=== PATIENT | female | born 1975 | race African-American/Black ===

== ENCOUNTER 2017-06-19 10:24 | Inpatient (IN) ==
--- NOTE | 2017-06-19 11:05 | Emergency Department Note ---
Arrival - Arrival Chief Complaint: Upper Respiratory Stated Complaint: SOB, SHARP PAIN IN RIGHT SIDE, HURTS TO COUGH ED Nursing Triage Note: Pt c/o productive cough that is painful in her left chest and also painful to take a deep breath, right flank/hip/leg pain (aching pain), fever, sore throat, nasal congestion, body aches, and chills since yesterday. Mode of Arrival: Ambulatory Limitations: No Limitations Source: Patient Time Seen by Provider: 06/19/17 10:41 - History of Present Illness HPI Narrative: This is a 41-year-old black female who is complaining of a productive cough with fever that began yesterday. She states that her fever has been 100.2 at home. She states that is also painful to take a deep breath and she aches all over. Onset (ago): day(s) (1) Severity: moderate Quality: aching Date of Last Menstrual Period: June 02 Allergies/Adverse Reactions: Allergies Allergy/AdvReac Type Severity Reaction Status Date / Time No Known Allergies Allergy Verified 06/14/16 21:37 Home Medications: Home Medications Medication Instructions Recorded Confirmed Type Lisinopril/Hydrochlorothiazide 1 each PO DAILY 08/21/15 11/04/16 History [Lisinopril-Hctz 20-12.5 mg Tab] Albuterol Neb [Proventil Neb] 0.63 mg RESP TX RT Q4H PRN #120 06/19/16 11/04/16 Rx nebulization solution Metformin HCl 1,000 mg PO BID W/MEALS #60 tablet 06/19/16 11/04/16 Rx Nebulizer [Aeroneb Go Nebulizer] 1 each INH Q4H 08/06/16 11/04/16 History predniSONE TAB [PredniSONE] 40 mg PO DAILY 3 Days 08/06/16 11/04/16 Rx HYDROcodone/ACETAMIN 7.5-325 1 tablet PO Q6H #20 tablet 11/08/16 Rx [[place] 7.5-325] Levofloxacin Tab [Levaquin Tab] 500 mg PO DAILY #4 tablet 11/08/16 Rx Review of System - Review of System 12 point system: reviewed and no additional remarkable complaints except as stated - Review of System Constitutional: Present: as per HPI, chills, fever Head/Ears/Nose/Throat: Present: see HPI, sore throat Respiratory: Present: as per HPI, cough Gastrointestinal: Present: as per HPI, abdominal pain. Absent: nausea, vomiting , diarrhea Medical,Surgical,& Family Hx - Medical History Cardio: History of: Hypertension HEENT: History of: HEENT Problems (recurrent sinus infections) Endocrine: History of: Diabetes Mellitus (NIDDM), Dyslipidemia No history of: Diabetes Mellitus (IDDM) Respiratory: History of: Asthma (she has home nebulizer with albuterol), Bronchitis, Pneumonia Renal: No history of: Renal Failure, Renal Problems Gastrointestinal: No history of: Gastrointestinal Bleed, Liver Problems, GI Problems Musculoskeletal: No history of: Amputation - Surgical History Reproductive Surgeries: Surgical HX of;: Gynecologic Surgery (removal of ovarian cyst 1993) - Family History Family History: Reports;: Family Diabetes (grandmother), Family Hypertension ( mother, father, grandparents) Denies;: Family Anesthesia Reaction, Family Cancer, Family Heart Disease, Family Psychiatric Problems, Family Stroke - Social History Smoking Status: Never smoker Exam Physical Examination: - General General appearance: [alert, in mild to moderate distress] - Head Head exam: [Present: atraumatic, normocephalic, normal inspection] - Eye Eye exam: [Present: normal appearance, PERRL, EOMI] - ENT ENT exam: [Present: normal exam, normal oropharynx, mucous membranes moist, TM' s normal bilaterally, normal external ear exam] - Neck Neck exam: [Present: normal inspection, full ROM, trachea midline] - Chest Chest inspection: [Present: normal inspection, symmetric chest wall rise] - Respiratory Respiratory exam: [Present: normal lung sounds bilaterally] - Cardiovascular Cardiovascular exam: [Present: Mild tachycardia at 107, normal rhythm, normal heart sounds] - Abdominal Exam Abdominal exam: [Present: soft, normal bowel sounds] - Extremities Exam Extremities exam: [Present: normal inspection, full ROM] - Back Exam Back exam: [Present: normal inspection, full ROM] - Neurological Exam Neurological exam: [Present: alert, oriented X3] - Psychiatric Psychiatric exam: [Present: normal affect, normal mood] - Skin Skin exam: [Present: warm, dry, intact, normal color] Vital Signs: Vital Signs Temperature 99.6 F 06/19/17 10:38 Pulse Rate 107 H 06/19/17 10:38 Respiratory Rate 20 06/19/17 10:38 Blood Pressure 125/87 06/19/17 10:38 O2 Sat by Pulse Oximetry 98 06/19/17 10:31 Course - Consultations Consultation #1: I spoke with Krista and hospitalist services about the patient, and she will come down and see the patient in nonurgent. Time: 12:15 Results - Labs CBC & BMP: 06/19/17 10:57 06/19/17 10:57 Lab Results: I have reviewed the patients labs - Diagnostic Findings Procedure: Chest x-ray: image reviewed by me, report reviewed by me (Left lung pneumonia infiltrate) Disposition Clinical Impression: Pneumonia Case discussed with: patient Disposition: Still a Patient Condition: Stable Time of Disposition: 12:51
[2017-06-19 11:15] LABS: Basophils # 0.1 10*3/uL (0.0-0.2); Basophils % 0.3 % (0.0-0.8); Hematocrit 35.9 VOL% (35.7-47.0); Hemoglobin 12.5 GM/DL (12.0-16.0); Immature Granulocytes % 1.1 %; Immature Granulocytes Absolute 0.35 #; Lymphocytes # 1.8 10*3/uL (1.4-4.0); Lymphocytes % 5.9 % (21.3-54.2); Mean Corpuscular HGB Conc 34.8 GM/DL (32-36); Mean Corpuscular Hemoglobin 27 PG (27-34); Mean Corpuscular Volume 78.7 FL (87-102); Monocytes # 1.2 10*3/uL (0.11-0.8); Monocytes % 3.8 % (1.7-12.7); Neutrophils # 27.7 10*3/uL (1.4-7.4); Neutrophils % 88.9 % (38.7-73.9); Platelet Count 323 T/CUMM (130-400); Red Blood Count 4.56 MC/CUMM (3.8-5.5); Red Cell Distribution Width 14.3 % (9.3-17.3); White Blood Count 31.2 T/CUMM (4-12)
[2017-06-19 11:27] LABS: Apearance,Urine Slightly Hazy (Clear); Bacteria,Urine Occasional /HPF (Few); Bilirubin,Urine Negative (Negative); Blood, Urine Small mg/dL (Negative); Glucose,Urine (UA) Negative (Negative); Hyaline Casts,Urine 1 /LPF (0-3); Ketones,Urine 5 mg/dL (Negative); Mucus,Urine Occasional /LPF (Occasional); Nitrite,Urine Negative (Negative); Protein,Urine 30 MG/DL; RBC,Urine 1 /HPF (0-4); Squamous Epithelial Cell,Urine Occasional /HPF (0-10); Urine Color Yellow (Yellow); Urine Specific Gravity 1.015 (1.001-1.035); Urine Urobilinogen < 2.0 EU/DL (0.2-1.0); WBC,Urine 4 /HPF (0-6)
--- NOTE | 2017-06-19 11:29 | XRay Report ---
History: Productive cough and fever Date: 06/19/2017 Study: Chest x-ray PA and lateral Comparison exam: November 08, 2016 The cardiac silhouette is not enlarged. There is no mediastinal mass. There is some dense parenchymal consolidation in the left lower lobe in the retrocardiac region. There is also some focal almost masslike patchy infiltrate measuring 5.6 cm in the left midlung. There is no significant pleural effusion. Osseous structures are unchanged. Impression: Left lung pneumonia. Radiographic follow-up to resolution is recommended in order to help exclude underlying neoplasm PROCEDURE INTERPRETED AT [facility] DEPARTMENT OF RADIOLOGY Final Report Signed by: Dr. Bridgette Mackay
[2017-06-19] MEDS ORDERED: LEVOFLOXACIN INJ 750 MG in PREMIX 1 EACH IV STA (11:33)
[2017-06-19] MEDS ORDERED: SODIUM CHLORIDE 0.9% 1,000 ML IV STA (11:33)
[2017-06-19 11:45] LABS: Band Neutrophils 9 % (0-10); Calcium 9.4 MG/DL (8.5-10.1); Hypochromasia 1+; Lymphocytes 4 % (20-55); Metamyelocytes 1 %; Microcytosis 1+; Osmolality,Calculated 268.1 MOS/KG (273-304); Potassium 3.1 MMOL/L (3.5-5.1); Segmented Neutrophils 80 % (50-85); Total Cells Counted 100
[2017-06-19] MEDS ORDERED: LEVOFLOXACIN INJ 150 ML IV ONE (11:47)
[2017-06-19] MEDS ORDERED: DOCUSATE SODIUM 100 MG CAPSULE PO PRN (12:27)
--- NOTE | 2017-06-19 12:50 | Hospitalist History & Physical ---
Assessment and Plan - Time spent with patient Time spent with patient: Greater than 30 minutes (1) Pneumonia Status: Acute Assessment and plan: 06/19/17 Chest xray showed left pneumonia. Discussed with Dr Squires for further recommendations. will admit. Start antibiotic therapy. Will order CT of chest. Order labs (Bandar. TB gold, Myco IgM and IgG, and HIV). Repeat labs in A.M. Consult Pulmonary for pleurisy vs TB. Current Visit: Yes (2) Type 2 diabetes mellitus Status: Chronic Assessment and plan: Will monitor closely. Will continue home medications. Will order sliding scale. Current Visit: No History of Present Illness Chief complaint: fever, cough, pneumonia History of present illness: Ms. Diallo is a very pleasant 41 year old AA female presented to [facility] ED non-urgent for c/o productive cough, fever (100.2) and chills. PMHx: hypertension, diabetes, and asthma. She reports right sided pain with deep inspiration, sore throat, nasal congestion, and body aches for the past 24 hours. She denies shortness of breath or chest pain. She denies coughing up blood. She reports taking all her medications as prescribed. While in non-urgent, Lab was noted for significant WBC of 31.2. CXR showed left lung pneumonia, radiographic follow-up to resolution is recommended in order to help exclude underlying neoplasm. PCP; [facility] (Dr Garcia). After further discussion with Perfecto STARK in non-urgent and Dr Squires with Hospitalist Services, it was agreed to admit patient and for further evaluation and treatment. Home Medications Medication Instructions Recorded Confirmed Type Lisinopril/Hydrochlorothiazide 1 each PO DAILY 08/21/15 11/04/16 History [Lisinopril-Hctz 20-12.5 mg Tab] Albuterol Neb [Proventil Neb] 0.63 mg RESP TX RT Q4H PRN #120 06/19/16 11/04/16 Rx nebulization solution Metformin HCl 1,000 mg PO BID W/MEALS #60 tablet 06/19/16 11/04/16 Rx Nebulizer [Aeroneb Go Nebulizer] 1 each INH Q4H 08/06/16 11/04/16 History predniSONE TAB [PredniSONE] 40 mg PO DAILY 3 Days 08/06/16 11/04/16 Rx HYDROcodone/ACETAMIN 7.5-325 1 tablet PO Q6H #20 tablet 11/08/16 Rx [[place] 7.5-325] Levofloxacin Tab [Levaquin Tab] 500 mg PO DAILY #4 tablet 11/08/16 Rx Allergies Allergy/AdvReac Type Severity Reaction Status Date / Time No Known Allergies Allergy Verified 06/14/16 21:37 Medical,Surgical,& Family Hx - Medical History Cardio: History of: Hypertension HEENT: History of: HEENT Problems (recurrent sinus infections) Endocrine: History of: Diabetes Mellitus (NIDDM), Dyslipidemia No history of: Diabetes Mellitus (IDDM) Respiratory: History of: Asthma (she has home nebulizer with albuterol), Bronchitis, Pneumonia Renal: No history of: Renal Failure, Renal Problems Gastrointestinal: No history of: Gastrointestinal Bleed, Liver Problems, GI Problems Musculoskeletal: No history of: Amputation - Surgical History Reproductive Surgeries: Surgical HX of;: Gynecologic Surgery (removal of ovarian cyst 1993) - Family History Family History: Reports;: Family Diabetes (grandmother), Family Hypertension ( mother, father, grandparents) Denies;: Family Anesthesia Reaction, Family Cancer, Family Heart Disease, Family Psychiatric Problems, Family Stroke - Social History Smoking Status: Never smoker Frequency of Alcohol Use: None Type of Drug Use: None Lives With:: Parent Functional capacity: independent ambulation Review of systems: ROS of completed and pertinent positives and negatives in HPI. Exam - Constitutional Vitals: Period Temp Pulse Resp BP Sys/Bethea Pulse Ox Last 24 Hr 99.6 F-99.6 F 107-107 20-20 125-125/87-87 98 General appearance: normal weight - Head Head exam: Present: normal inspection - Eye Eye exam: Present: EOMI Pupils: Present: DAX - Neck Neck exam: Present: normal inspection. Absent: thyromegaly - Respiratory Respiratory exam: Present: rhonchi (left lung). Absent: chest wall tenderness, wheezes - Cardiovascular Cardiovascular exam: Present: regular rate and rhythm - GI/Abdominal GI/Abdominal exam: Present: normal bowel sounds, soft. Absent: guarding, tenderness, rebound - Extremities Exam Extremities exam: Present: full ROM. Absent: edema - Neurological Exam Neurological exam: Present: alert, oriented X3, CN II-XII intact - Psychiatric Psychiatric exam: Present: normal affect, normal mood. Absent: agitated, anxious - Skin Skin exam: Present: normal color, warm, dry Results - Labs CBC & BMP: 06/19/17 10:57 06/19/17 10:57 Lab Results: I have reviewed the past 24 hour labs - Diagnostic Findings Procedure: Chest x-ray: report reviewed by me (left lung pneumonia; radiographic follow-up to resolution is recommended in order to help exclude underlying neoplasm) Sepsis - Sepsis Classification of Sepsis: Sepsis Possible / Suspected infection from: Possible/suspected - Physical Exam Physical Exam: 06/19/17 - Awake, Alert and oriented x3. No acute distress. WBC 31.2, HR 107, Resp Rate 20, BP 112.58, Temp 99.8. Lactic acid ordered. - Physical Exam Respiratory exam: rhonchi (left pneumonia, recommended further evaluation r/t need to resolve or exclude underlying neoplasm) Capillary Refill: Less Than 3 Seconds Cardiovascular exam: tachycardia (107) Skin exam: normal color
[2017-06-19 13:12] LABS: INR 1.3; PT Patient Result 13.9 SECS; Partial Thromboplastin Time 38.3 SECS (0-40)
[2017-06-19] MEDS: SODIUM CHLORIDE 0.9% 1,000 ML IV SCH (13:38)
[2017-06-19] MEDS: cefTRIAXone 1,000 MG in SODIUM CHLORIDE 0.9% 100 ML IV SCH (13:38)
[2017-06-19] MEDS: ENOXAPARIN 40 MG/0.4 ML SYRINGE SUBCUT SCH (13:39)
[2017-06-19] MEDS: AZITHROMYCIN INJ 500 MG in SODIUM CHLORIDE 0.9% 250 ML IV SCH (14:28)
[2017-06-19 14:35] LABS: HIV Antigen/Antibody Result Nonreactive (Nonreactive)
[2017-06-19] MEDS: MORPHINE 2 MG/1 ML SYRINGE IV PRN ×2 (15:13→20:44)
--- NOTE | 2017-06-19 15:14 | CT Report ---
CT chest wo con Indication: Pneumonia Comparison: None. Technique: CT chest was performed without administration of intravenous contrast. In addition to multiple contiguous axial source images, coronal and sagittal MPR series were provided. The CT examination was performed using one or more of the following dose reduction techniques: Automatic exposure control, adjustment of the mA and kV according to patient size, use of acute or iterative reconstruction techniques. Findings: Lack of intravenous contrast significantly degrades diagnostic specificity. Nodular airspace attenuation involving left upper lobe has curvilinear branching areas associated that on the sagittal sequence in particular appear to represent bronchi or possibly vascular structures. Exact etiology is uncertain. Surrounding these areas of nodular attenuation, there are thickened intralobular septal lines. The thickening appears minimally nodular in appearance. Small left-sided pleural effusion additionally is present with some increased attenuation noted along the pleural surface of the medial lower left chest image #58. This may represent pleural metastatic disease or solid pleural mass. This focus measures 2.5 cm in transverse dimension. Further evaluation is limited secondary to lack of intravenous contrast. Right lung appears clear. Left lower lobe is grossly clear. Filling defect is present within the right lower lobe segmental bronchi. Pulmonary artery is grossly normal for noncontrast enhanced study. The aorta demonstrates no evidence of acute pathology. The heart size is normal. Anterior mediastinum demonstrates nodular foci of soft tissue attenuation were typically thymus gland resides. This possibly reflects residual thymus, adenopathy is not excluded. The esophagus demonstrates no significant abnormality. In addition to the nodular areas of soft tissue attenuation within the anterior mediastinum, there is suggested lymph node or other soft tissue nodule measuring 15 mm anterior to the pericardium within the anterior mediastinum image #37. Hilar adenopathy cannot be excluded. The imaged portion of the upper abdomen, bony structures of the chest, soft tissues and muscle rupture of the chest wall as well as lower neck demonstrate no significant pathology. Impression: 1. The left upper lung demonstrates numerous nodular foci of attenuation some of which appear to have a curvilinear configuration suggesting pulmonary vasculature or bronchi which could be filled and/or enlarged. Surrounding groundglass attenuation and thickened interlobular septal lines additionally present. Also, small pleural effusion and nodular disease of the pleural surface along the medial pleural surface of the posterior left sulcus is suggested. Further evaluation is limited secondary to lack of intravenous contrast. Differential considerations include neoplasm such as metastatic disease, fungal infection including ABPA. 2. Anterior mediastinum demonstrates small nodular areas of attenuation may reflect residual thymus, subcentimeter lymph nodes, a larger nodular focus within the more caudal anterior mediastinum measuring 15 mm additionally is present. Kelly cannot be evaluated secondary to lack of intravenous contrast and hilar adenopathy is not excluded. 3. Filling defect of the right lower lobe segmental bronchi is demonstrated. 06/19/2017 3:03 PM PROCEDURE INTERPRETED AT [facility] [place] DEPARTMENT OF RADIOLOGY Final Report Signed by: Dr. Judson Romano
--- NOTE | 2017-06-19 17:00 | Infectious Disease Consult ---
Assessment and Plan (1) Pneumonia Status: Acute Assessment and plan: I think this is a community-acquired pneumonia given the acuteness of the presentation. She keeps getting pneumonia and I am not sure the reason for this other than the fact that she is asthmatic [and has a problem with mucous plugging] and also she is relatively immunocompromised being diabetic. She had a borderline positive GITA screen last October which may or may not be relevant. This pneumonia is very unlikely to be TB as tuberculosis is usually an indolent/chronic infection with prolonged fever, night sweats, and weight loss. Additionally would expect a more apical location of the infiltrate with or without cavitation. Further the patient has had evaluation for tuberculosis twice with bronchioloalveolar lavage specimens last summer and last winter culturing negative for acid-fast bacilli. Fungal cultures were also negative. Recommendations: 1. Discontinue airborne isolation precautions and continue with standard precautions 2. Agree with empiric azithromycin and ceftriaxone 3. Check urine Legionella and pneumococcal antigens 4. Follow-up pending blood cultures and also A1c to assess control of diabetes 5. Agree with pulmonary consult. If the location of the pneumonia is the same as previous episodes then she may end up benefiting from lung biopsy, given mention of possible lung mass by radiology Thank you very much for the consult. Will follow. Discussed with infection control nurse Will discuss with Dr. Squires (tried to call but he was unavailable; will try again later) Current Visit: Yes (2) Asthma Status: Chronic Current Visit: No Qualifiers: Asthma severity: moderate persistent (3) Hypertension Status: Chronic Current Visit: No (4) Type 2 diabetes mellitus Status: Chronic Current Visit: No History of Present Illness Chief complaint: Pneumonia, concern for TB History of present illness: Ms. Diallo is a 41 year old female with multiple comorbidities including asthma since childhood, diabetes and hypertension has had repeated episodes of pneumonia over the past 2 years. She is admitted here last summer and then again last October with pneumonia. Each time she had bronchoscopy done and samples were negative for fungus and mycobacteria. Patient is doing relatively well, she has been off steroids since October [she was on steroids for her severe asthma]. Yesterday she acutely developed left-sided pleuritic chest pain as well as cough productive of whitish sometimes brownish sputum, and fever. Because of the severity of the pain she decided to seek medical attention and came to the emergency room today. Chest x-ray showed obvious infiltrate in left lung which had leukocytosis to 31. No definite fever since admission. 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 She completed 9 months of presumably in isoniazid. She has not had any known contact with tuberculosis; no ill contacts at home. Primary team felt that there was a possibility of tuberculosis and put the patient in airborne isolation; I am asked to advise further on management. As I said the patient's presentation was acute with symptoms starting yesterday; there is no history of prolonged fevers, no night sweats, no weight loss, appetite has been excellent except yesterday when she had nausea and vomited 3 times, she vomited about once today. just as I was leaving her room today asked if she had anymore questions and she asked if she could get some food to eat. Home Medications Medication Instructions Recorded Confirmed Type Lisinopril/Hydrochlorothiazide 1 each PO DAILY 08/21/15 06/19/17 History [Lisinopril-Hctz 20-12.5 mg Tab] Albuterol Neb [Proventil Neb] 0.63 mg RESP TX RT Q4H PRN #120 06/19/16 06/19/17 Rx nebulization solution Nebulizer [Aeroneb Go Nebulizer] 1 each INH Q4H 08/06/16 11/04/16 History Metformin HCl 500 mg PO BID W/MEALS 06/19/17 06/19/17 History Allergies Allergy/AdvReac Type Severity Reaction Status Date / Time No Known Allergies Allergy Verified 06/14/16 21:37 12 point system: reviewed and no additional remarkable complaints except as stated (Per HPI) Medical,Surgical,& Family Hx - Medical History Cardio: History of: Hypertension Psychological: No history of: Anxiety Disorders, ADHD, Behavior Problems, Bipolar Disorder, Depression, Previous Suicide Attempt, Psychiatric/Substance Abuse Tx, Schizophrenia, Violent Behavior, Psychiatric Problems HEENT: History of: HEENT Problems (recurrent sinus infections) Endocrine: History of: Diabetes Mellitus (NIDDM), Dyslipidemia No history of: Diabetes Mellitus (IDDM) Respiratory: History of: Asthma (she has home nebulizer with albuterol), Bronchitis, Pneumonia, Respiratory Problems (history of tb infection 2010 was treated at [facility]) Renal: No history of: Renal Failure, Renal Problems Gastrointestinal: No history of: Gastrointestinal Bleed, Liver Problems, GI Problems Musculoskeletal: No history of: Amputation - Surgical History Reproductive Surgeries: Surgical HX of;: Gynecologic Surgery (removal of ovarian cyst 1993) - Family History Family History: Reports;: Family Diabetes (grandmother), Family Hypertension ( mother, father, grandparents) Denies;: Family Anesthesia Reaction, Family Cancer, Family Heart Disease, Family Psychiatric Problems, Family Stroke - Social History Smoking Status: Never smoker Frequency of Alcohol Use: None Type of Drug Use: None Infectious Disease Exam H&P - Constitutional Vitals: Vital Signs Temp Pulse Resp BP Pulse Ox 99.2 F 142 H 21 139/83 95 06/19/17 15:35 06/19/17 15:50 06/19/17 15:50 06/19/17 15:50 06/19/17 15:50 Intake and Output 06/19/17 06/19/17 06/19/17 07:59 15:59 23:59 Intake Total 1490 / 1490 250 / 250 Balance 1490 / 1490 250 / 250 Intake: IV 1250 / 1250 250 / 250 Zithromax Inj 500 mg In 250 / 250 Ns 250 ml @ 250 mls/hr IV Q24H LUIS FERNANDO Rx#:[id number] Levaquin Inj 750 mg In 150 / 150 Premix 1 Each @ 100 mls/ hr IV 1X ED STA Rx#: [id number] Ns 1,000 ml @ 999 mls/hr 1000 / 1000 IV 1X ED BOLUS STA Rx#: [id number] Rocephin 1,000 mg In Ns 100 / 100 100 ml @ 200 mls/hr IV Q24H LUIS FERNANDO Rx#:[id number] Oral 240 / 240 Other: Weight 101.378 kg Patient Weight 06/19/17 23:59 Weight 101.378 kg Exam: General: Patient uncomfortable from left-sided chest pain, worsened with movement and deep respiration, however she was completely nontoxic appearing HEENT: Mucous membranes pink and moist, anicteric acyanotic, DAX, no oropharyngeal exudates Neck: Supple, no thyroid gland enlargement Respiratory system: O2 sat almost 100% on room air, breath sounds vesicular, no crepitations or wheezes heard Cardiovascular: Normal S1 and S2, no murmurs appreciated Abdomen: Normal bowel sounds, soft nontender throughout, no organomegaly or mass Genitourinary: No suprapubic pain or bladder distention Extremities: no edema Skin: No rash Reports - Labs CBC & BMP: 06/19/17 10:57 06/19/17 10:57 Labs: Laboratory Results - last 24 hr 06/19/17 06/19/17 06/19/17 10:48 10:57 10:57 WBC 31.2 H RBC 4.56 Hgb 12.5 Hct 35.9 MCV 78.7 L MCH 27 MCHC 34.8 RDW 14.3 Plt Count 323 MPV 9.0 L Neut % (Auto) 88.9 H Lymph % (Auto) 5.9 L Cabell % (Auto) 3.8 Eos % (Auto) 0.0 Baso % (Auto) 0.3 Neut # (Auto) 27.7 H Lymph # (Auto) 1.8 Cabell # (Auto) 1.2 H Eos # (Auto) 0.0 Baso # (Auto) 0.1 Total Counted 100 Immature Gran % 1.1 Nucleated RBC % 0.0 Immature Gran # 0.35 Segmented Neutrophils 80 Band Neutrophils 9 Lymphocytes 4 L Monocytes 6 Metamyelocytes 1 Nucleated RBCs # 0.00 Immature Plt Fraction 0.0 Hypochromasia 1+ Microcytosis 1+ Morphology Comment INR PT Patient/Control Mix Circ Anticoag PTT Sodium 135 L Potassium 3.1 L Chloride 98 Carbon Dioxide 27 Anion Gap 13.1 BUN 8 Creatinine 0.80 GFR Calculation 126 BUN/Creatinine Ratio 10.00 Glucose 108 H POC Glucose Calculated Osmolality 268.1 L Lactic Acid Calcium 9.4 Magnesium Random Cortisol Urine Color Yellow Urine Appearance Slightly hazy Urine pH 5.0 Ur Specific Zenia 1.015 Urine Protein 30 Urine Glucose (UA) Negative Urine Ketones 5 Urine Blood Small Urine Nitrate Negative Urine Bilirubin Negative Urine Urobilinogen < 2.0 H Urine Leukocytes Negative Urine RBC 1 Urine WBC 4 Ur Squamous Epith Cells Occasional Urine Bacteria Occasional Hyaline Casts 1 Urine Mucus Occasional Ur Culture Indicated? Not indicated Urine Test Negative HIV 1&2 Antigen & Ab 06/19/17 06/19/17 06/19/17 10:57 10:57 12:24 WBC RBC Hgb Hct MCV MCH MCHC RDW Plt Count MPV Neut % (Auto) Lymph % (Auto) Cabell % (Auto) Eos % (Auto) Baso % (Auto) Neut # (Auto) Lymph # (Auto) Cabell # (Auto) Eos # (Auto) Baso # (Auto) Total Counted Immature Gran % Nucleated RBC % Immature Gran # Segmented Neutrophils Band Neutrophils Lymphocytes Monocytes Metamyelocytes Nucleated RBCs # Immature Plt Fraction Hypochromasia Microcytosis Morphology Comment INR 1.3 PT Patient/Control Mix 13.9 Circ Anticoag PTT 38.3 Sodium Potassium Chloride Carbon Dioxide Anion Gap BUN Creatinine GFR Calculation BUN/Creatinine Ratio Glucose POC Glucose Calculated Osmolality Lactic Acid Calcium Magnesium Random Cortisol 17.8 Urine Color Urine Appearance Urine pH Ur Specific Zenia Urine Protein Urine Glucose (UA) Urine Ketones Urine Blood Urine Nitrate Urine Bilirubin Urine Urobilinogen Urine Leukocytes Urine RBC Urine WBC Ur Squamous Epith Cells Urine Bacteria Hyaline Casts Urine Mucus Ur Culture Indicated? Urine Test HIV 1&2 Antigen & Ab Nonreactive 06/19/17 06/19/17 06/19/17 13:51 15:16 Unknown WBC RBC Hgb Hct MCV MCH MCHC RDW Plt Count MPV Neut % (Auto) Lymph % (Auto) [place] % (Auto) Eos % (Auto) Baso % (Auto) Neut # (Auto) Lymph # (Auto) Cabell # (Auto) Eos # (Auto) Baso # (Auto) Total Counted Immature Gran % Nucleated RBC % Immature Gran # Segmented Neutrophils Band Neutrophils Lymphocytes Monocytes Metamyelocytes Nucleated RBCs # Immature Plt Fraction Hypochromasia Microcytosis Morphology Comment INR PT Patient/Control Mix Circ Anticoag PTT Sodium Potassium Chloride Carbon Dioxide Anion Gap BUN Creatinine GFR Calculation BUN/Creatinine Ratio Glucose POC Glucose 99 Calculated Osmolality Lactic Acid 2.7 H 3.4 H Calcium Magnesium Random Cortisol Urine Color Urine Appearance Urine pH Ur Specific Zenia Urine Protein Urine Glucose (UA) Urine Ketones Urine Blood Urine Nitrate Urine Bilirubin Urine Urobilinogen Urine Leukocytes Urine RBC Urine WBC Ur Squamous Epith Cells Urine Bacteria Hyaline Casts Urine Mucus Ur Culture Indicated? Urine Test HIV 1&2 Antigen & Ab 06/19/17 Unknown WBC RBC Hgb Hct MCV MCH MCHC RDW Plt Count MPV Neut % (Auto) Lymph % (Auto) [place] % (Auto) Eos % (Auto) Baso % (Auto) Neut # (Auto) Lymph # (Auto) Cabell # (Auto) Eos # (Auto) Baso # (Auto) Total Counted Immature Gran % Nucleated RBC % Immature Gran # Segmented Neutrophils Band Neutrophils Lymphocytes Monocytes Metamyelocytes Nucleated RBCs # Immature Plt Fraction Hypochromasia Microcytosis Morphology Comment INR PT Patient/Control Mix Circ Anticoag PTT Sodium Potassium Chloride Carbon Dioxide Anion Gap BUN Creatinine GFR Calculation BUN/Creatinine Ratio Glucose POC Glucose Calculated Osmolality Lactic Acid Calcium Magnesium 2.1 Random Cortisol Urine Color Urine Appearance Urine pH Ur Specific Zenia Urine Protein Urine Glucose (UA) Urine Ketones Urine Blood Urine Nitrate Urine Bilirubin Urine Urobilinogen Urine Leukocytes Urine RBC Urine WBC Ur Squamous Epith Cells Urine Bacteria Hyaline Casts Urine Mucus Ur Culture Indicated? Urine Test HIV 1&2 Antigen & Ab - Diagnostic Findings Procedure: Chest x-ray: image reviewed by me, report reviewed by me (Masslike consolidation in left midlung), CT - chest: report reviewed by me, image reviewed by me (Consolidation in left mid to lower lung ruff)
--- NOTE | 2017-06-19 17:31 | ECHO Report ---
Jaki Diallo Exam Date: 06/19/2017 14:22 Referring Physician: Technologist: lisa Whiting ARDMS, RVT Age: 41 Ht (in): 64 Wt (lb): 230 Gender: F Exam Location: [facility] Echo Indications: Shortness of breath, Essential (primary) hypertension, Fever, Rt. sided pain, NIDDM, Upper respiratory BP: 125 / 87 HR: 104 Rhythm: Sinus Technical Quality: IMPRESSIONS Left ventricular ejection fraction is estimated at 60 %. There is grade 1 diastolic dysfunction. Mild left ventricular hypertrophy. Tricuspid regurgitation velocities suggest a RVSP of 31 mmHg plus the right atrial pressure. MEASUREMENTS (Male / Female) Normal Values 2D ECHO LV Diastolic Diameter PLAX 3.8 cm 4.2 - 5.9 / 3.9 - 5.3 cm LV Systolic Diameter PLAX 2.0 cm LV Fractional Shortening PLAX 47.3 % IVS Diastolic Thickness 1.3 cm 0.6 - 1.0 / 0.6 - 0.9 cm LVPW Diastolic Thickness 1.2 cm 0.6 - 1.0 / 0.6 - 0.9 cm RV Internal Dim ED PLAX 4.2 cm Aortic Root Diameter 3.0 cm LA Systolic Diameter LX 2.5 cm 3.0 - 4.0 / 2.7 - 3.8 cm DOPPLER TR Peak Velocity 277.0 cm/s TR Peak Gradient 30.7 mmHg FINDINGS Left Ventricle Normal left ventricular cavity size. Mild left ventricular hypertrophy. Left ventricular ejection fraction is estimated at 60 %. There is grade 1 diastolic dysfunction Right Ventricle The right ventricle is normal in size and function. Right Atrium The right atrium is normal in size. Left Atrium The left atrium is normal in size. Mitral Valve Morphologically normal mitral valve without significant stenosis or prolapse. There is no mitral regurgitation. Aortic Valve Morphologically normal aortic valve without significant sclerosis or stenosis. There is no aortic regurgitation. Tricuspid Valve Morphologically normal tricuspid valve. Mild tricuspid valve regurgitation. Tricuspid regurgitation velocities suggest a RVSP of 31 mmHg plus the right atrial pressure. Pulmonic Valve Morphologically normal pulmonic valve without significant stenosis. There is no pulmonic regurgitation. Pericardium Normal pericardium without effusion. Aorta Normal ascending aorta dimension. Suyapa Coleman (Electronically Signed) Final Date: 19 June 2017 17:24
[2017-06-19] MEDS: ONDANSETRON 4 MG/2 ML VIAL IV PRN (20:43)
[2017-06-19] MEDS: ACETAMINOPHEN 325 MG TABLET PO PRN (22:18)
[2017-06-20 02:44] LABS: Basophils # 0.1 10*3/uL (0.0-0.2); Basophils % 0.4 % (0.0-0.8); Hemoglobin 11.7 GM/DL (12.0-16.0); Immature Granulocytes % 1.2 %; Immature Granulocytes Absolute 0.28 #; Lymphocytes % 8.3 % (21.3-54.2); Mean Corpuscular HGB Conc 33.4 GM/DL (32-36); Mean Corpuscular Hemoglobin 27 PG (27-34); Mean Corpuscular Volume 80.5 FL (87-102); Mean Platelet Volume 9.2 FL (9.6-12.0); Monocytes # 1.2 10*3/uL (0.11-0.8); Monocytes % 5.1 % (1.7-12.7); Neutrophils # 20.7 10*3/uL (1.4-7.4); Platelet Count 282 T/CUMM (130-400); Red Blood Count 4.35 MC/CUMM (3.8-5.5); Red Cell Distribution Width 14.4 % (9.3-17.3); White Blood Count 24.3 T/CUMM (4-12)
[2017-06-20 03:12] LABS: Risk Ratio 2.33; VLDL CHOLESTEROL 9.8 MG/DL
[2017-06-20 03:26] LABS: Albumin 2.8 G/DL (3.4-5.0); Bilirubin,Total 1.3 MG/DL (0.2-1.0); Calcium 8.7 MG/DL (8.5-10.1); Osmolality,Calculated 273.5 MOS/KG (273-304); Potassium 3.3 MMOL/L (3.5-5.1); Total Protein 6.1 G/DL (6.4-8.3)
[2017-06-20 03:56] LABS: Band Neutrophils 8 % (0-10); Lymphocytes 12 % (20-55); Myelocytes 2 %; Segmented Neutrophils 75 % (50-85)
[2017-06-20 03:57] LABS: Platelet Estimate Normal
[2017-06-20 03:58] LABS: Total Cells Counted 100
[2017-06-20] MEDS: MORPHINE 2 MG/1 ML SYRINGE IV PRN (04:36)
[2017-06-20] MEDS: ACETAMINOPHEN 325 MG TABLET PO PRN (04:41)
[2017-06-20] MEDS: SODIUM CHLORIDE 0.9% 1,000 ML IV SCH ×2 (04:44→20:49)
[2017-06-20] MEDS ORDERED: GLUCAGON 1 MG VIAL IM PRN (08:19)
[2017-06-20] MEDS ORDERED: DEXTROSE 50% 25 GM/50 ML SYRINGE IV PRN (08:19)
[2017-06-20] MEDS ORDERED: ALBUTEROL 2.5 MG/3 ML NEB RESP TX PRN (08:20)
--- NOTE | 2017-06-20 08:26 | Hospitalist Progress Note ---
<Radha Fultonda - Last Filed: 06/20/17 08:24> Assessment and Plan (1) Hypokalemia Status: Acute Assessment and plan: Potassium noted 3.3; we will replace per potassium replacement protocol and recheck in a.m. Current Visit: Yes (2) Pneumonia Status: Acute Assessment and plan: Blood and sputum cultures were obtained at the time of ED presentation. Empiric antibiotics were immediately initiated. The patient was evaluated by infectious disease on yesterday due to a reported exposure to tuberculosis and subsequent treatment with INH in 2010. In addition, the patient underwent CT chest on yesterday which was significant for groundglass attenuation and thickened intralobular septal lines. There is a troublesome finding of a small nodular finding along the medial surface of the left posterior sulcus and an additional nodular focus within the caudal anterior mediastinum which was noted at 15 mm. A pulmonary consultation has been requested. HIV panel was obtained and was nonreactive. The patient will need further workup to rule out malignancy. We will await pulmonary evaluation for further direction. We appreciate the input from infectious disease. Upon examination, the patient is noted to expiratory wheezes in the bilateral upper lobes. We will start low-dose corticosteroid and inhaled bronchodilators. Current Visit: Yes Qualifiers: Pneumonia type: due to unspecified organism (3) Type 2 diabetes mellitus Status: Chronic Assessment and plan: Hemoglobin A1c noted at 5.0. We will hold all oral agents. We will start Accu- Cheks with sliding scale coverage and monitor. Current Visit: No Hospitalist: Subjective Interval history: Patient seen and examined; chart reviewed. No significant overnight events reported per staff. Exam - Constitutional Vitals: Period Temp Pulse Resp BP Sys/Bethea Pulse Ox Last 24 Hr 98.9 F-102.4 F 98-142 20-30 104-139/58-87 95-100 General appearance: no acute distress - Head Head exam: Present: normal inspection, normocephalic - Eye Eye exam: Present: EOMI. Absent: conjunctival injection Pupils: Present: DAX, normal accommodation - ENT ENT exam: Present: normal exam, normal external ear exam, normal oropharynx - Neck Neck exam: Present: normal inspection. Absent: lymphadenopathy, meningismus, thyromegaly - Respiratory Respiratory exam: Present: chest wall tenderness, wheezes (Bilateral upper lobes ) - Cardiovascular Cardiovascular exam: Present: regular rate and rhythm. Absent: carotid bruit, diastolic murmur, gallop, JVD, rubs, systolic murmur - GI/Abdominal GI/Abdominal exam: Present: normal bowel sounds, soft - Extremities Exam Extremities exam: Present: normal inspection, normal capillary refill, full ROM. Absent: edema - Back Exam Back exam: Present: CVA tenderness (R) - Neurological Exam Neurological exam: Present: alert, oriented X3, CN II-XII intact - Psychiatric Psychiatric exam: Present: normal affect, normal mood - Skin Skin exam: Present: normal color, warm, dry Results - Labs CBC & BMP: 06/20/17 02:29 06/20/17 02:29 Lab Results: I have reviewed the past 24 hour labs <Carina Rocha - Last Filed: 06/20/17 09:24> Hospitalist: Subjective Interval history: Patient spiked a temp this am. She also complained of a headache but no neck stiffness.We will await Pulmonology consult. Exam - Constitutional Vitals: Period Temp Pulse Resp BP Sys/Bethea Pulse Ox Last 24 Hr 0.2 F-102.4 F 98-142 20-30 104-139/58-87 95-100 Results - Labs CBC & BMP: 06/20/17 02:29 06/20/17 02:29
[2017-06-20] MEDS: PANTOPRAZOLE 40 MG TABLET PO SCH (08:27)
[2017-06-20] MEDS: POTASSIUM CHLORIDE RIDER 10 MEQ in PREMIX 1 EACH IV PRN ×4 (08:27→11:27)
[2017-06-20] MEDS: methylPREDNISolone SOD SUC 125 MG/2 ML VIAL IV SCH ×2 (08:28→16:42)
--- NOTE | 2017-06-20 09:01 | XRay Report ---
XR chest 1V portable Indication: Shortness of breath Comparison: CT chest 06/19/2017. Technique: Portable AP chest was performed. Findings: Focal airspace opacification from fluid airspace opacification in the left perihilar region is demonstrated. Small hiatal hernia suggested. The chest is also unremarkable. Impression: 1. Infectious process left perihilar region could be considered. This area of airspace opacification has increased in size since comparison study. This may reflect interval worsening of surrounding atelectasis given bronchial obstruction described on CT. Continued follow-up is recommended to ensure complete resolution. 2. Small hiatal hernia suggested. 06/20/2017 8:57 AM PROCEDURE INTERPRETED AT [facility] DEPARTMENT OF RADIOLOGY Final Report Signed by: Dr. Judson Romano
--- NOTE | 2017-06-20 10:03 | Pulmonology Consult Note ---
History of Present Illness Chief complaint: Left upper lung pneumonia. History of present illness: Ms. Diallo is a 41 year old black female whom I been asked to see in pulmonary consultation for evaluation and treatment. This lady has had a number of hospitalizations here. She has recurrent left upper lung pneumonias which are very dense. She was evaluated with fiberoptic bronchoscopy by Dr. Sameer Raya in May 2016 and October 2016. Each time she had dense mucoid impactions and inflammation erythema and edema endobronchially. He has look for aspergillosis and no evidence of this is been found. He is also look for AFB and cancer and no evidence of either have been found. Patient has asthma and she is followed at [facility] This patient presents this time with acute onset of fever chills on chest x-ray she has a dense left upper lung pneumonia. On chest x-ray on CT scan of the chest to can be seen to have air bronchograms. The degree of infiltrate is extensive and has loculation in several areas which makes me think there is extensive segmental and subsegmental endobronchial obstruction most likely secondary to the same retained material that Dr. Raya saw in the past The patient periodically because of some thick tenacious sputum. She denies gastroesophageal reflux disease. The remainder her review of systems is negative. Allergies none Home medicines. See below Hospital medicines. See below Past history. Asthma followed at [facility]. Non- insulin-dependent diabetes mellitus, hyperlipidemia and high blood pressure. Patient had an ovarian cyst removed in 1993. In the past the patient took INH for 9 months because of a TB skin test conversion. Social history. Patient never smoked. Family history. Grandmother had diabetes. Her mother father and grandparents have high blood pressure. Chest x-ray/CT of chest. Dense left upper lung infiltrate with some large air bronchograms and with multiple loculated areas of infiltrate Microbiology. No results reported. Lab. Admit white count was 31,200 with 89% segs. H&H is 11.7/35.0. Platelets are 282,000. Sodium and chloride are normal. Potassium 3.3. Creatinine is 0.60 with a BUN of 5. Liver function tests are normal. Protein and albumin are low at 6.1 and 2.8 respectively. Globulin is normal at 3.3. Urine shows no evidence of infection. Labs been reviewed. Medicines have been reviewed. Old records have been reviewed. Physical exam. General. No significant distress. Does appear acutely ill Psychiatric. Oriented 3. Fairly good historian. Neurologic. Cranial nerves are intact. Long track motor functions intact. Gait was not tested. Sensory exam was not Face. Symmetrical. No edema of the lips or tongue. Neck. Symmetrical with no meningismus. Lymphatics. No submandibular cervical supraclavicular or epitrochlear adenopathy. Chest. Mild large airway wheeze. Heart. No gallop Abdomen. Nontender. Positive bowel sounds Breasts. Deferred and rectal. Deferred Skin the face and hands show no cancerous infectious lesions. Extremities. No clubbing. No edema. Venous exam. Neck upper and lower extremities are normal Arterial exam. Carotid upstroke is fair. Upper extremity pulses are palpable. Lower extremity pulses are nonpalpable. No evidence of lower extremity ischemia The remainder the physical exam was noncontributory. Impression. 1. Acute left upper lung pneumonia 2. History of recurrent left upper lung pneumonia which has been evaluated with fiberoptic bronchoscopy by Dr. Sameer Raya in May 2016 and in October 2016. Each time significant mucoid impaction with occlusion of the bronchi has been involved. All test for fungus and AFB have been negative. 3. Asthma 4. High blood pressure 5. Khj-urbsbfh-drtojtomf diabetes mellitus 6. Hyper lipidemia 7. See past Plan. 1. Agree with antibiotics 2. Cultures are pending 3. Mucinex. 600 mg twice daily. Maybe we should continue this on a long-term basis. Patient may have left upper lung bronchiectasis with chronic sputum production that because of his diabetes becomes dried out thick tenacious and occludes bronchi. 4. Inhalation therapy. Add inhalation therapy with Pulmozyme twice daily 5. Singulair 10 mg to 6. Most likely will need repeat bronchoscopy in a few days. Home Medications Medication Instructions Recorded Confirmed Type Lisinopril/Hydrochlorothiazide 1 each PO DAILY 08/21/15 06/19/17 History [Lisinopril-Hctz 20-12.5 mg Tab] Albuterol Neb [Proventil Neb] 0.63 mg RESP TX RT Q4H PRN #120 06/19/16 06/19/17 Rx nebulization solution Nebulizer [Aeroneb Go Nebulizer] 1 each INH Q4H 08/06/16 11/04/16 History Metformin HCl 500 mg PO BID W/MEALS 06/19/17 06/19/17 History Allergies Allergy/AdvReac Type Severity Reaction Status Date / Time No Known Allergies Allergy Verified 06/14/16 21:37 Exam (Pulmonay) H&P - Constitutional Vitals: Period Temp Pulse Resp BP Sys/Bethea Pulse Ox Last 24 Hr 0.2 F-102.4 F 98-142 18-30 104-139/58-87 94-100 Medical,Surgical,& Family Hx - Medical History Cardio: History of: Hypertension Psychological: No history of: Anxiety Disorders, ADHD, Behavior Problems, Bipolar Disorder, Depression, Previous Suicide Attempt, Psychiatric/Substance Abuse Tx, Schizophrenia, Violent Behavior, Psychiatric Problems HEENT: History of: HEENT Problems (recurrent sinus infections) Endocrine: History of: Diabetes Mellitus (NIDDM), Dyslipidemia No history of: Diabetes Mellitus (IDDM) Respiratory: History of: Asthma (she has home nebulizer with albuterol), Bronchitis, Pneumonia, Respiratory Problems (history of tb infection 2011 was treated at [facility]) Renal: No history of: Renal Failure, Renal Problems Gastrointestinal: No history of: Gastrointestinal Bleed, Liver Problems, GI Problems Musculoskeletal: No history of: Amputation - Surgical History Reproductive Surgeries: Surgical HX of;: Gynecologic Surgery (removal of ovarian cyst 1993) - Family History Family History: Reports;: Family Diabetes (grandmother), Family Hypertension ( mother, father, grandparents) Denies;: Family Anesthesia Reaction, Family Cancer, Family Heart Disease, Family Psychiatric Problems, Family Stroke - Social History Smoking Status: Never smoker Frequency of Alcohol Use: None Type of Drug Use: None Results - Labs CBC & BMP: 06/20/17 02:29 06/20/17 02:29
[2017-06-20] MEDS: MONTELUKAST 10 MG TABLET PO SCH (10:48)
[2017-06-20] MEDS: INSULIN REGULAR 100 UNIT/ML SUBCUT SCH ×3 (11:50→22:50)
[2017-06-20] MEDS: cefTRIAXone 1,000 MG in SODIUM CHLORIDE 0.9% 100 ML IV SCH (13:22)
[2017-06-20] MEDS: ENOXAPARIN 40 MG/0.4 ML SYRINGE SUBCUT SCH (13:22)
[2017-06-20] MEDS: ALBUTEROL/IPRATROPIUM 3 ML NEB RESP TX SCH ×2 (13:33→19:36)
[2017-06-20] MEDS: DORNASE ALFA 2.5 MG/2.5 ML VIAL RESP TX SCH ×2 (13:37→19:36)
[2017-06-20] MEDS: AZITHROMYCIN INJ 500 MG in SODIUM CHLORIDE 0.9% 250 ML IV SCH (14:48)
[2017-06-21] MEDS: ALBUTEROL/IPRATROPIUM 3 ML NEB RESP TX SCH ×4 (00:13→19:54)
[2017-06-21] MEDS: methylPREDNISolone SOD SUC 125 MG/2 ML VIAL IV SCH ×3 (01:03→17:51)
[2017-06-21] MEDS: ONDANSETRON 4 MG/2 ML VIAL IV PRN (03:58)
[2017-06-21] MEDS: MORPHINE 2 MG/1 ML SYRINGE IV PRN (03:59)
[2017-06-21] MEDS: SODIUM CHLORIDE 0.9% 1,000 ML IV SCH ×3 (06:22→23:14)
[2017-06-21] MEDS: DORNASE ALFA 2.5 MG/2.5 ML VIAL RESP TX SCH ×2 (07:15→19:54)
--- NOTE | 2017-06-21 08:00 | XRay Report ---
XR chest 1V portable Indication: Shortness of breath Comparison: AP chest 06/20/2017 Technique: Portable AP chest was performed. Findings: Minimal improvement in airspace disease involving the mid left lung is demonstrated when compared to the previous study. The left cardiophrenic angle remains obscured and total atelectasis of the left lower lobe is suggested. Chest is otherwise stable. Impression: 1. Interval partial clearing of the left midlung is demonstrated. 2. Total atelectasis of the left lower lobe is suggested. 06/21/2017 7:57 AM PROCEDURE INTERPRETED AT [facility] DEPARTMENT OF RADIOLOGY Final Report Signed by: Dr. Judson Romano
[2017-06-21] MEDS: MONTELUKAST 10 MG TABLET PO SCH (08:10)
[2017-06-21] MEDS: PANTOPRAZOLE 40 MG TABLET PO SCH (08:10)
[2017-06-21] MEDS: INSULIN REGULAR 100 UNIT/ML SUBCUT SCH ×4 (08:11→23:00)
--- NOTE | 2017-06-21 08:32 | Hospitalist Progress Note ---
<Tony Fulton - Last Filed: 06/21/17 08:23> Assessment and Plan (1) Hypokalemia Status: Acute Assessment and plan: Potassium noted 3.3; we will replace per potassium replacement protocol and recheck in a.m. Current Visit: Yes (2) Pneumonia Status: Acute Assessment and plan: Blood and sputum cultures were obtained at the time of ED presentation. Empiric antibiotics were immediately initiated. The patient was evaluated by infectious disease on yesterday due to a reported exposure to tuberculosis and subsequent treatment with INH in 2010. In addition, the patient underwent CT chest on yesterday which was significant for groundglass attenuation and thickened intralobular septal lines. There is a troublesome finding of a small nodular finding along the medial surface of the left posterior sulcus and an additional nodular focus within the caudal anterior mediastinum which was noted at 15 mm. A pulmonary consultation has been requested. HIV panel was obtained and was nonreactive. The patient will need further workup to rule out malignancy. We will await pulmonary evaluation for further direction. We appreciate the input from infectious disease. Upon examination, the patient is noted to expiratory wheezes in the bilateral upper lobes. We will start low-dose corticosteroid and inhaled bronchodilators. 06/21-noted improvement in chest x-ray this a.m. We will continue empiric antibiotics, inhaled bronchodilators, and intravenous corticosteroids as previously ordered. Patient was seen and evaluated by pulmonology on yesterday ; we agree with the recommendations given and appreciate the input. Current Visit: Yes Qualifiers: Pneumonia type: due to unspecified organism (3) Type 2 diabetes mellitus Status: Chronic Assessment and plan: Hemoglobin A1c noted at 5.0. We will hold all oral agents. We will start Accu- Cheks with sliding scale coverage and monitor. Current Visit: No Hospitalist: Subjective Interval history: Patient seen and examined; chart reviewed. No significant overnight events reported per staff. Patient seen and evaluated by pulmonology on yesterday. We appreciate the input. Exam - Constitutional Vitals: Period Temp Pulse Resp BP Sys/Bethea Pulse Ox Last 24 Hr 97.5 F-98.8 F 73-110 16-22 116-136/67-83 95-100 General appearance: no acute distress, over weight - Head Head exam: Present: normal inspection, normocephalic, atraumatic - Eye Eye exam: Present: EOMI. Absent: conjunctival injection Pupils: Present: DAX, normal accommodation - ENT ENT exam: Present: normal exam, normal external ear exam, normal oropharynx - Neck Neck exam: Present: normal inspection. Absent: lymphadenopathy, meningismus, thyromegaly - Respiratory Respiratory exam: Present: chest wall tenderness, decreased breath sounds, wheezes (Scattered) - Cardiovascular Cardiovascular exam: Present: regular rate and rhythm. Absent: carotid bruit, diastolic murmur, gallop, JVD, rubs, systolic murmur - GI/Abdominal GI/Abdominal exam: Present: normal bowel sounds, soft. Absent: firm, guarding, tenderness - Extremities Exam Extremities exam: Present: normal inspection, normal capillary refill, full ROM. Absent: edema - Back Exam Back exam: Present: normal inspection - Neurological Exam Neurological exam: Present: oriented X3, CN II-XII intact - Psychiatric Psychiatric exam: Present: normal affect, normal mood - Skin Skin exam: Present: normal color, warm, dry Results - Labs CBC & BMP: 06/20/17 02:29 06/20/17 15:01 Lab Results: I have reviewed the past 24 hour labs <Carina Rocha - Last Filed: 06/21/17 09:46> Hospitalist: Subjective Interval history: Patient is still complaining of some headaches with some photophobia. She denies previous history of migraine headaches. Plan is to start Fioricet prn and get an MRI of the bran. Exam - Constitutional Vitals: Period Temp Pulse Resp BP Sys/Bethea Pulse Ox Last 24 Hr 97.5 F-98.8 F 73-110 16-22 116-136/67-83 95-100 Results - Labs CBC & BMP: 06/20/17 02:29 06/20/17 15:01
[2017-06-21] MEDS ORDERED: BUTALBITAL/ACETAMIN/CAFFEINE 50-325-40 MG TABLET PO PRN (08:50)
--- NOTE | 2017-06-21 08:59 | Pulmonology Progress Note ---
Pulmonary - PN: Subj Interval history: This is a 41-year-old black female whom I saw in pulmonary consultation on 2016. This patient's had several previous hospitalizations. She has been evaluated by Dr. Raya with bronchoscopies in May 2016 in October 2016. She said she had been followed up in Dr. Raya's office once and she is also been followed at [facility]. My impressions were. 1. Acute left upper lung pneumonia 2. History of recurrent left upper lung pneumonia which has been evaluated with fiberoptic bronchoscopy by Dr. Sameer Raya in May 2016 and in October 2016. Each time significant mucoid impaction with occlusion of the bronchi has been involved. All test for fungus and AFB have been negative. 3. Asthma 4. High blood pressure 5. Vjd-lgzhorv-axmusnbmt diabetes mellitus 6. Hyper lipidemia 7. See past history. 06/21/2017. Today's chest x-ray shows some left upper lung infiltrate with a few air bronchograms and atelectasis. This is a little smaller than before. There are no positive cultures. Admit white count of been 31,200 with a left shift. Patient says she has not immobilized any sputum. She says her cough is better and she feels a little better. There were no new problems. Physical exam. Vital signs. See below. Has become afebrile Psychiatric oriented 3 Neurologic cranial nerves are intact long track motor functions intact Face. Symmetrical. No edema of the lips or tongue. Neck. Symmetrical. No meningismus Lymphatics. No submandibular cervical supraclavicular or epitrochlear adenopathy Chest. Wheeze free. Heart. No gallop Abdomen. Nondistended nontender. Bowel sounds are present Extremities. Nothing to suggest deep venous thrombophlebitis. The remainder the exam is noncontributory and negative Plan. 06/20/2017 1. Agree with antibiotics 2. Cultures are pending 3. Mucinex. 600 mg twice daily. Maybe we should continue this on a long-term basis. Patient may have left upper lung bronchiectasis with chronic sputum production that because of his diabetes becomes dried out thick tenacious and occludes bronchi. 4. Inhalation therapy. Add inhalation therapy with Pulmozyme twice daily 5. Singulair 10 mg to 6. Most likely will need repeat bronchoscopy in a few days. 06/21/2017. 1. Dr. Sameer Raya will tile picker this patient tomorrow 2. Chest x-ray and CBC in the morning Exam (Progress Note) - Constitutional Vitals: Period Temp Pulse Resp BP Sys/Bethea Pulse Ox Last 24 Hr 97.5 F-98.8 F 73-110 16-22 116-136/67-83 95-100 Results - Labs CBC & BMP: 06/20/17 02:29 06/20/17 15:01
--- NOTE | 2017-06-21 12:33 | Magnetic Resonance Report ---
MR head/brain wo con Indication: Headache. Comparison: None. Technique: Using 1.5 Jocelin magnet, multisequence multiplanar MR imaging of the brain was performed without the administration of intravenous contrast. Findings: There is no evidence of restricted diffusion. There is no evidence of acute intracranial hemorrhage, mass, or infarction. Ventricular system demonstrates no evidence of acute pathology. White matter of the cerebral hemispheres demonstrates no significant abnormality. The basal cisterns appear patent. The arterial flow voids appear intact. The posterior fossa as well as cerebellum demonstrate no evidence of acute pathology. The orbits and globes demonstrate no evidence of acute pathology. The paranasal sinuses and mastoid air cells demonstrate no evidence of significant mucoperiosteal thickening. The calvarium as well as the soft tissues overlying the calvarium demonstrate no evidence of acute pathology. No unexpected areas of enhancement are demonstrated within the brain, meninges, or orbits. Impression: 1. There is no evidence of acute intracranial pathology. 06/21/2017 12:28 PM PROCEDURE INTERPRETED AT [facility] DEPARTMENT OF RADIOLOGY Final Report Signed by: Dr. Judson Romano
[2017-06-21] MEDS: cefTRIAXone 1,000 MG in SODIUM CHLORIDE 0.9% 100 ML IV SCH (12:57)
[2017-06-21] MEDS: ENOXAPARIN 40 MG/0.4 ML SYRINGE SUBCUT SCH (12:57)
[2017-06-21] MEDS: AZITHROMYCIN INJ 500 MG in SODIUM CHLORIDE 0.9% 250 ML IV SCH (14:41)
[2017-06-22] MEDS: ALBUTEROL/IPRATROPIUM 3 ML NEB RESP TX SCH ×4 (00:15→19:05)
[2017-06-22] MEDS: methylPREDNISolone SOD SUC 125 MG/2 ML VIAL IV SCH ×3 (01:44→17:09)
[2017-06-22 06:28] LABS: Basophils % 0.2 % (0.0-0.8); Hematocrit 30.2 VOL% (35.7-47.0); Hemoglobin 10.2 GM/DL (12.0-16.0); Immature Granulocytes % 1.1 %; Immature Granulocytes Absolute 0.27 #; Lymphocytes # 1.3 10*3/uL (1.4-4.0); Lymphocytes % 5.4 % (21.3-54.2); Mean Corpuscular HGB Conc 33.8 GM/DL (32-36); Mean Corpuscular Hemoglobin 27 PG (27-34); Mean Corpuscular Volume 79.7 FL (87-102); Mean Platelet Volume 10.3 FL (9.6-12.0); Monocytes # 1.4 10*3/uL (0.11-0.8); Monocytes % 5.9 % (1.7-12.7); Neutrophils # 21.5 10*3/uL (1.4-7.4); Neutrophils % 87.4 % (38.7-73.9); Platelet Count 242 T/CUMM (130-400); Red Blood Count 3.79 MC/CUMM (3.8-5.5); Red Cell Distribution Width 15.1 % (9.3-17.3); White Blood Count 24.6 T/CUMM (4-12)
[2017-06-22 07:09] LABS: Albumin 2.5 G/DL (3.4-5.0); Bilirubin,Total 0.5 MG/DL (0.2-1.0); Calcium 8.5 MG/DL (8.5-10.1); Magnesium 2.5 MG/DL (1.8-2.4); Osmolality,Calculated 278.3 MOS/KG (273-304); Phosphorous 2.3 MG/DL (2.5-4.9); Potassium 3.4 MMOL/L (3.5-5.1); Total Protein 5.6 G/DL (6.4-8.3)
[2017-06-22 07:17] LABS: Band Neutrophils 7 % (0-10); Lymphocytes 6 % (20-55); Segmented Neutrophils 78 % (50-85); Total Cells Counted 100
[2017-06-22 07:18] LABS: Hypochromasia 1+; Platelet Estimate Adequate; Target Cells Slight
[2017-06-22] MEDS: DORNASE ALFA 2.5 MG/2.5 ML VIAL RESP TX SCH ×2 (07:32→19:09)
[2017-06-22] MEDS: POTASSIUM CHLORIDE RIDER 10 MEQ in PREMIX 1 EACH IV PRN ×3 (08:05→10:05)
[2017-06-22] MEDS: MONTELUKAST 10 MG TABLET PO SCH (08:05)
[2017-06-22] MEDS: PANTOPRAZOLE 40 MG TABLET PO SCH (08:05)
[2017-06-22] MEDS: INSULIN REGULAR 100 UNIT/ML SUBCUT SCH ×4 (08:06→21:06)
--- NOTE | 2017-06-22 08:11 | XRay Report ---
XR chest 2V Indication: Pneumonia Comparison: Chest x-ray June 21, 2017 Technique: Frontal and lateral views of the chest. Findings: The cardiomediastinal silhouette is stable in configuration. No significant change in left suprahilar and infrahilar atelectasis/consolidation. There is complete opacification of the left lower lobe suggested with associated volume loss. Visualized osseous and surrounding soft tissue structures appear grossly unchanged. IMPRESSION: No significant interval change. PROCEDURE INTERPRETED AT [facility] DEPARTMENT OF RADIOLOGY Final Report Signed by: Dr Stefano Winters
--- NOTE | 2017-06-22 10:06 | Hospitalist Progress Note ---
Assessment and Plan (1) Pneumonia Status: Acute Assessment and plan: History of recurrent left upper lung pneumonia which has been evaluated with fiberoptic bronchoscopy by Dr. Sameer Raya in May 2016 and in October 2016. Each time significant mucoid impaction with occlusion of the bronchi has been involved. All test for fungus and AFB have been negative. CXR showed a complete opacification of the left lower lobe suggested with associated volume loss. Visualized osseous and surrounding soft tissue structures appear grossly unchanged. Plan continue nebs, steroids and antibiotics, mucinex Pulm wants to bronch in am Chest percussion therapy Current Visit: No Qualifiers: Pneumonia type: due to unspecified organism Laterality: left Lung location: lower lobe of lung Qualified Code(s): J18.9 - Pneumonia, unspecified organism (2) Type 2 diabetes mellitus Status: Chronic Assessment and plan: Stable on current regime.Hemoglobin A1c noted at 5.0 Current Visit: No (3) Hypertension Status: Chronic Assessment and plan: will resume home meds Current Visit: No (4) Asthma Status: Chronic Assessment and plan: continue nebs, steroids, antibiotics. Pulm is following Current Visit: No Qualifiers: Asthma severity: moderate persistent Hospitalist: Subjective Interval history: Patient still having some headaches with photophobia. MRI of head showed no acute changes.CXR showed complete opacification of the left lower lobe suggested with associated volume loss.She has been scheduled for a bronchoscopy in am. Exam - Constitutional Vitals: Period Temp Pulse Resp BP Sys/Bethea Pulse Ox Last 24 Hr 97.6 F-98.8 F 66-97 17-20 118-144/68-86 94-99 General appearance: no acute distress - Head Head exam: Present: normal inspection - Respiratory Respiratory exam: Present: decreased breath sounds - Cardiovascular Cardiovascular exam: Present: regular rate and rhythm - GI/Abdominal GI/Abdominal exam: Present: normal bowel sounds - Extremities Exam Extremities exam: Present: normal inspection - Neurological Exam Neurological exam: Present: alert, oriented X3 Results - Labs CBC & BMP: 06/22/17 05:32 06/22/17 05:32 Lab Results: I have reviewed the past 24 hour labs Specialty Discharge - Follow Up or Referrals
--- NOTE | 2017-06-22 12:01 | Infectious Disease Progress ---
Assessment and Plan (1) Pneumonia Status: Acute Assessment and plan: Community-acquired pneumonia, recurrent, probably related to asthma with mucous plugging in airways. Recommendations: 1. Continue empiric azithromycin and ceftriaxone 2. Follow-up urine Legionella and pneumococcal antigens 3. Follow-up pending blood cultures Current Visit: Yes Qualifiers: Pneumonia type: due to unspecified organism (2) Asthma Status: Chronic Current Visit: No Qualifiers: Asthma severity: moderate persistent (3) Hypertension Status: Chronic Current Visit: No (4) Type 2 diabetes mellitus Status: Chronic Current Visit: No Infectious Disease - PN: Subj Interval history: Patient doing fair, says there is no significant improvement in left-sided pleuritic chest pain. She has not had any fever since admission. No nausea vomiting or diarrhea and her appetite is good. Infectious Disease Exam (PN) - Constitutional Vitals: Temp Pulse Resp BP Pulse Ox 98.2 F 64 20 132/73 98 06/22/17 11:52 06/22/17 11:52 06/22/17 11:52 06/22/17 11:52 06/22/17 11:52 General appearance: no acute distress Exam: General appearance: no acute distress - Eye Eye exam: Present: EOMI. no icterus Pupils: Present: DAX - ENT ENT exam: no oropharyhgeal exudates - Respiratory Respiratory exam: vesicular BS, no crepitations or wheezes heard - Cardiovascular Cardiovascular exam: regular rate and rhythm, no murmurs - GI/Abdominal GI/Abdominal exam: normal bowel sounds, soft, non-tender, no organomegaly or mass - Extremities Exam Extremities exam: no edema - Skin Skin exam: no rash Results - Labs CBC & BMP: 06/22/17 05:32 06/22/17 05:32 Lab Results: I have reviewed the past 24 hour labs (Blood cultures negative, sputum culture negative, urine culture negative) - Diagnostic Findings Procedure: Chest x-ray: image reviewed by me, report reviewed by me (Unchanged left midlung zone consolidation) Specialty Discharge - Follow Up or Referrals
[2017-06-22] MEDS: SUMAtriptan 6 MG/0.5 ML VIAL SUBCUT PRN (12:24)
[2017-06-22] MEDS: ENOXAPARIN 40 MG/0.4 ML SYRINGE SUBCUT SCH (12:24)
[2017-06-22] MEDS: LISINOPRIL/HCTZ 20-12.5 MG TABLET PO SCH (12:24)
[2017-06-22] MEDS: cefTRIAXone 1,000 MG in SODIUM CHLORIDE 0.9% 100 ML IV SCH (12:24)
[2017-06-22] MEDS: MORPHINE 2 MG/1 ML SYRINGE IV PRN (14:05)
[2017-06-22] MEDS: AZITHROMYCIN INJ 500 MG in SODIUM CHLORIDE 0.9% 250 ML IV SCH (14:53)
--- NOTE | 2017-06-22 14:59 | Pulmonology Progress Note ---
Pulmonary - PN: Subj Interval history: The patient is a 41-year-old black lady with chronic asthma that has severe mucoid impaction syndrome. She comes back in now with some coughing and shortness of breath and has a left upper lobe consolidation. She still has some left lower lobe infiltrate also. She has had infiltrates off and on for almost 10 years now. She has had severe mucoid impaction obstructing various bronchi. They will get better at times. She usually responds to steroids. She does not always use bronchodilators. She never does come back for follow- up. Exam (Progress Note) - Constitutional Vitals: Period Temp Pulse Resp BP Sys/Bethea Pulse Ox Last 24 Hr 97.6 F-98.8 F 64-97 17-20 118-144/68-86 94-99 General appearance: no acute distress, over weight - Head Head exam: Present: normal inspection, normocephalic - Eye Eye exam: Present: EOMI. Absent: scleral icterus Pupils: Present: DAX - ENT ENT exam: Present: normal exam - Neck Neck exam: Present: normal inspection. Absent: lymphadenopathy, thyromegaly - Respiratory Respiratory exam: Present: rhonchi, wheezes. Absent: accessory muscle use - Cardiovascular Cardiovascular exam: Present: regular rate and rhythm. Absent: gallop, systolic murmur - GI/Abdominal GI/Abdominal exam: Present: normal bowel sounds, soft. Absent: organomegaly, tenderness - Extremities Exam Extremities exam: Absent: calf tenderness, edema - Neurological Exam Neurological exam: Present: alert, oriented X3, CN II-XII intact - Psychiatric Psychiatric exam: Present: normal affect, normal mood - Skin Skin exam: Present: warm, dry Results - Labs CBC & BMP: 06/22/17 05:32 06/22/17 05:32 - Diagnostic Findings Procedure: Chest x-ray: image reviewed by me, report reviewed by me (Chest x- ray does show left upper lobe consolidation. There is also some left lower lobe consolidation.) Assessment and Plan (1) Asthma Status: Chronic Assessment and plan: Patient has chronic asthma but has done fairly well on steroids. She will not always take bronchodilators. Current Visit: No Qualifiers: Asthma severity: moderate persistent (2) Type 2 diabetes mellitus Status: Chronic Assessment and plan: Her glucose is 127 Current Visit: No (3) Hypertension Status: Chronic Assessment and plan: Her blood pressure has been stable. Current Visit: No (4) Mucoid impaction of bronchi Status: Acute Assessment and plan: The patient looks like she has worsening infiltrates. Will plan a bronchoscope tomorrow and check her airways and clear airways. Current Visit: No (5) Pneumonia Status: Acute Assessment and plan: She does not have much fever and I suspect she will be obstructed in her airways. Current Visit: Yes Qualifiers: Pneumonia type: due to unspecified organism Specialty Discharge - Follow Up or Referrals
[2017-06-22] MEDS: SODIUM CHLORIDE 0.9% 1,000 ML IV SCH (15:00)
[2017-06-23] MEDS: methylPREDNISolone SOD SUC 125 MG/2 ML VIAL IV SCH ×3 (00:13→17:03)
[2017-06-23] MEDS: ALBUTEROL/IPRATROPIUM 3 ML NEB RESP TX SCH ×4 (01:32→19:45)
[2017-06-23] MEDS: MORPHINE 2 MG/1 ML SYRINGE IV PRN ×2 (01:47→05:31)
[2017-06-23 05:20] LABS: Calcium 8.2 MG/DL (8.5-10.1); Magnesium 2.5 MG/DL (1.8-2.4); Osmolality,Calculated 278.3 MOS/KG (273-304); Potassium 3.6 MMOL/L (3.5-5.1)
[2017-06-23] MEDS ORDERED: GLYCOPYRROLATE 0.4 MG/2 ML VIAL IM ONE (07:00)
[2017-06-23] MEDS ORDERED: PROMETHAZINE 25 MG/1 ML VIAL IM ONE (07:00)
[2017-06-23] MEDS ORDERED: MEPERIDINE 50 MG/1 ML VIAL IM ONE (07:00)
[2017-06-23] MEDS ORDERED: LIDOCAINE 2% 20 ML VIAL RESP TX ONE (07:01)
[2017-06-23] MEDS: DORNASE ALFA 2.5 MG/2.5 ML VIAL RESP TX SCH ×2 (07:11→19:59)
[2017-06-23] MEDS ORDERED: MIDAZOLAM 2 MG/2 ML VIAL ONE (07:12)
[2017-06-23] MEDS ORDERED: MIDAZOLAM 2 MG/2 ML VIAL IV ONE (07:30)
[2017-06-23] MEDS ORDERED: LIDOCAINE 4% TOP SOLN 50 ML BOTTLE RESP TX ONE (07:30)
[2017-06-23] MEDS ORDERED: LIDOCAINE 2% VISCOUS 100 ML BOTTLE SWISH/SPIT ONE (07:30)
[2017-06-23] MEDS ORDERED: LIDOCAINE 1% 20 ML VIAL MISC INJ ONE (07:30)
--- NOTE | 2017-06-23 08:01 | Pulmonology Progress Note ---
Pulmonary - PN: Subj Interval history: The patient is a 41-year-old black lady with chronic asthma that has severe mucoid impaction syndrome. She comes back in now with some coughing and shortness of breath and has a left upper lobe consolidation. She still has some left lower lobe infiltrate also. She has had infiltrates off and on for almost 10 years now. She has had severe mucoid impaction obstructing various bronchi. They will get better at times. She usually responds to steroids. She does not always use bronchodilators. She continues to have some coughing although she is breathing okay. Will proceed with a bronchoscope today. Exam (Progress Note) - Constitutional Vitals: Period Temp Pulse Resp BP Sys/Bethea Pulse Ox Last 24 Hr 96.4 F-98.2 F 55-127 12-24 130-172/61-100 95-100 Exam: General appearance: no acute distress, over weight, she is coughing a lot but looks comfortable. - Head Head exam: Present: normal inspection, normocephalic - Eye Eye exam: Present: EOMI. Absent: scleral icterus Pupils: Present: DAX - ENT ENT exam: Present: normal exam - Neck Neck exam: Present: normal inspection. Absent: lymphadenopathy, thyromegaly - Respiratory Respiratory exam: Present: She has fair breath sounds bilaterally with some mild rhonchi and wheezing. - Cardiovascular Cardiovascular exam: Present: regular rate and rhythm. Absent: gallop, systolic murmur - GI/Abdominal GI/Abdominal exam: Present: normal bowel sounds, soft. Absent: organomegaly, tenderness - Extremities Exam Extremities exam: Absent: calf tenderness, edema - Neurological Exam Neurological exam: Present: alert, oriented X3, CN II-XII intact - Psychiatric Psychiatric exam: Present: normal affect, normal mood - Skin Skin exam: Present: warm, dry Results - Labs CBC & BMP: 06/22/17 05:32 06/23/17 03:23 Assessment and Plan (1) Asthma Status: Chronic Assessment and plan: Patient has chronic asthma but has done fairly well on steroids. She will not always take bronchodilators. She seems to be breathing okay at present. Current Visit: No Qualifiers: Asthma severity: moderate persistent (2) Type 2 diabetes mellitus Status: Chronic Assessment and plan: Her glucose is 96 Current Visit: No (3) Hypertension Status: Chronic Assessment and plan: Her blood pressure has been stable. Current Visit: No (4) Mucoid impaction of bronchi Status: Acute Assessment and plan: The patient looks like she has worsening infiltrates. We will plan a bronchoscope today. Current Visit: No (5) Pneumonia Status: Acute Assessment and plan: She does not have much fever and I suspect she will be obstructed in her airways. Current Visit: Yes Qualifiers: Pneumonia type: due to unspecified organism Specialty Discharge - Follow Up or Referrals
--- NOTE | 2017-06-23 08:06 | Operative Note ---
Date of procedure: 06/23/17 Pre-op diagnosis: Bilateral infiltrates Post-op diagnosis: other (Multiple bronchi with obstructed airways due to large inspissated mucous plugs.) Procedure: The patient is a 41-year-old black lady that has chronic asthma and keep coming in with consolidated areas. She has had several bronchoscopes in the past with obstructive airways due to mucous plugging. She will have a repeat bronchoscope today. Timeout was performed to identify the patient. The patient is in the bronchoscopy lab. Preop: Demerol 50 mg, Phenergan 25 mg, Robinul 0.1 mg IM. Anesthesia: Versed 4 mg IVP, topical lidocaine. Procedure: The fiberoptic bronchoscope was passed transnasally through the vocal cords into the lungs. The bronchopulmonary segments were identified and specimens were obtained. Findings: Once again there are multiple bronchi that are completely obstructed with large balls of inspissated mucus. The left upper lobe and left lower lobe have several segments that are obstructed. There are also some areas in the right lung that are obstructed. I tried to remove some of the tissue and is very friable breaks up easily. Several specimens were sent for histology. She does cough a lot. She tolerated fairly well. Impression: Multiple areas of obstruction due to large inspissated mucous plugs. Plan: She probably needs a bronchoscope under general anesthesia with attempts at removing much of this tissue with large forceps. Anesthesia: conscious sedation Surgeon / Physician: Brian Raya Estimated blood loss: none Specimens: other (Tissue was sent for histology and cytology.) Condition: stable Disposition: floor Results - Labs CBC & BMP: 06/22/17 05:32 06/23/17 03:23 Discharge Plan - Discharge Medications No Action Lisinopril/Hydrochlorothiazide [Lisinopril-Hctz 20-12.5 mg Tab] 1 each PO DAILY Albuterol Neb [Proventil Neb] 0.63 mg RESP TX RT Q4H PRN #120 nebulization solution PRN Reason: Shortness Of Breath/Wheezing Metformin HCl 500 mg PO BID W/MEALS - Follow Up or Referral - Forms/Instructions Instructions: Asthma (GEN), Viral Pneumonia (GEN)
[2017-06-23] MEDS: INSULIN REGULAR 100 UNIT/ML SUBCUT SCH ×3 (09:46→15:58)
--- NOTE | 2017-06-23 10:11 | Infectious Disease Progress ---
Assessment and Plan (1) Pneumonia Status: Acute Assessment and plan: Community-acquired pneumonia, recurrent, probably related to asthma with mucous plugging in airways. Recommendations: 1. Continue empiric azithromycin and ceftriaxone 2. Follow-up urine Legionella and pneumococcal antigens 3. Follow-up pending BAL cultures Current Visit: Yes Qualifiers: Pneumonia type: due to unspecified organism (2) Asthma Status: Chronic Current Visit: No Qualifiers: Asthma severity: moderate persistent (3) Hypertension Status: Chronic Current Visit: No (4) Type 2 diabetes mellitus Status: Chronic Current Visit: No Infectious Disease - PN: Subj Interval history: Patient doing relatively okay except she still has pleuritic left-sided chest pain. She had BAL today with removal of multiple mucous plugs. She has not had any fever recently. Good appetite no vomiting no diarrhea. Infectious Disease Exam (PN) - Constitutional Vitals: Temp Pulse Resp BP Pulse Ox 98.1 F 68 14 152/92 98 06/23/17 07:32 06/23/17 08:16 06/23/17 08:16 06/23/17 08:16 06/23/17 08:16 General appearance: no acute distress, over weight Exam: General appearance: no acute distress - Eye Eye exam: Present: EOMI. no icterus Pupils: Present: DAX - ENT ENT exam: no oropharyhgeal exudates - Respiratory Respiratory exam: vesicular BS, no crepitations or wheezes heard - Cardiovascular Cardiovascular exam: regular rate and rhythm, no murmurs - GI/Abdominal GI/Abdominal exam: normal bowel sounds, soft, non-tender, no organomegaly or mass - Extremities Exam Extremities exam: no edema - Skin Skin exam: no rash Results - Labs CBC & BMP: 06/22/17 05:32 06/23/17 03:23 Lab Results: I have reviewed the past 24 hour labs (All cultures negative to date) Specialty Discharge - Follow Up or Referrals
[2017-06-23] MEDS: SODIUM CHLORIDE 0.9% 1,000 ML IV SCH (10:41)
[2017-06-23] MEDS: LISINOPRIL/HCTZ 20-12.5 MG TABLET PO SCH (10:43)
[2017-06-23] MEDS: PANTOPRAZOLE 40 MG TABLET PO SCH (10:43)
[2017-06-23] MEDS: MONTELUKAST 10 MG TABLET PO SCH (10:43)
--- NOTE | 2017-06-23 11:21 | Hospitalist Progress Note ---
Assessment and Plan (1) Pneumonia Status: Acute Assessment and plan: History of recurrent left upper lung pneumonia which has been evaluated with fiberoptic bronchoscopy by Dr. Sameer Raya in May 2016 and in October 2016. Each time significant mucoid impaction with occlusion of the bronchi has been involved. All test for fungus and AFB have been negative. CXR showed a complete opacification of the left lower lobe suggested with associated volume loss. Visualized osseous and surrounding soft tissue structures appear grossly unchanged. She had a Bronchoscopy today which showed multiple areas of obstruction due to large inspissated mucous plugs. Some of the tissues were removed and they were very friable and broke up easily. Several specimens were sent for histology. Plan continue nebs, steroids and antibiotics, mucinex Chest percussion therapy She probably needs a bronchoscope under general anesthesia with attempts at removing much of this tissue with large forceps. Follow pulm's recommendations Current Visit: No Qualifiers: Pneumonia type: due to unspecified organism Laterality: left Lung location: lower lobe of lung Qualified Code(s): J18.9 - Pneumonia, unspecified organism (2) Type 2 diabetes mellitus Status: Chronic Assessment and plan: Stable on current regime.Hemoglobin A1c noted at 5.0 Current Visit: No (3) Hypertension Status: Chronic Assessment and plan: continue with home meds Current Visit: No (4) Asthma Status: Chronic Assessment and plan: continue nebs, steroids, antibiotics. Pulm is following Current Visit: No Qualifiers: Asthma severity: moderate persistent (5) Headache Status: Acute Assessment and plan: most likely due to Migraines. MRI was unremarkable. Continue with Imitrex prn Current Visit: Yes Hospitalist: Subjective Interval history: Patient was seen after bronchoscopy this am. She was drowsy and coughing. Bronchoscopy showed multiple areas of obstruction due to large inspissated mucous plugs. Exam - Constitutional Vitals: Period Temp Pulse Resp BP Sys/Bethea Pulse Ox Last 24 Hr 96.4 F-98.2 F 55-127 12-24 130-172/61-100 95-100 General appearance: no acute distress, other (coughing) - Head Head exam: Present: normal inspection - Respiratory Respiratory exam: Present: rales - Cardiovascular Cardiovascular exam: Present: regular rate and rhythm - GI/Abdominal GI/Abdominal exam: Present: normal bowel sounds - Extremities Exam Extremities exam: Present: normal inspection - Neurological Exam Neurological exam: Present: alert, oriented X3 Results - Labs CBC & BMP: 06/22/17 05:32 06/23/17 03:23 Lab Results: I have reviewed the past 24 hour labs Specialty Discharge - Follow Up or Referrals
[2017-06-23] MEDS: cefTRIAXone 1,000 MG in SODIUM CHLORIDE 0.9% 100 ML IV SCH (12:14)
[2017-06-23] MEDS: ENOXAPARIN 40 MG/0.4 ML SYRINGE SUBCUT SCH (12:15)
[2017-06-23] MEDS: AZITHROMYCIN INJ 500 MG in SODIUM CHLORIDE 0.9% 250 ML IV SCH (14:53)
[2017-06-23 15:51] LABS: TB Ag minue Nil Result -0.01 IU/mL
[2017-06-24] MEDS: ALBUTEROL/IPRATROPIUM 3 ML NEB RESP TX SCH ×4 (00:15→19:19)
[2017-06-24] MEDS: MORPHINE 2 MG/1 ML SYRINGE IV PRN ×2 (00:28→16:18)
[2017-06-24] MEDS: methylPREDNISolone SOD SUC 125 MG/2 ML VIAL IV SCH ×3 (00:34→16:18)
[2017-06-24] MEDS: INSULIN REGULAR 100 UNIT/ML SUBCUT SCH ×4 (00:35→23:31)
[2017-06-24] MEDS: SODIUM CHLORIDE 0.9% 1,000 ML IV SCH ×2 (00:37→16:17)
[2017-06-24] MEDS: DORNASE ALFA 2.5 MG/2.5 ML VIAL RESP TX SCH ×2 (07:35→19:19)
[2017-06-24] MEDS: cefTRIAXone 1,000 MG in SODIUM CHLORIDE 0.9% 100 ML IV SCH (09:02)
[2017-06-24] MEDS: ENOXAPARIN 40 MG/0.4 ML SYRINGE SUBCUT SCH (09:04)
[2017-06-24] MEDS: PANTOPRAZOLE 40 MG TABLET PO SCH (09:05)
[2017-06-24] MEDS: MONTELUKAST 10 MG TABLET PO SCH (09:05)
[2017-06-24] MEDS: LISINOPRIL/HCTZ 20-12.5 MG TABLET PO SCH (09:05)
--- NOTE | 2017-06-24 09:17 | Pathology Report from [facility] ---
[facility] ACCESSION # : [id number] PATIENT NAME : Jaki Diallo ORDERING DR : MANDEEP GRIMES MD CLINICAL HX: Asthma, Chronic Impaction Syndrone POST-OP DX: Same SPECIMEN INFO: Washing,Bronchial,ROXANA - 10 mls blood tinged with yellow and white particles. CLASS: I CLASS COMMENTS: Blood, acute, chronic inflammation, scant squamous and bronchial cells. No atypia seen.CELL BLOCK: Same CLASS LEGEND: CLASS 0 Material inadequate for diagnosis because of (see comment) CLASS I Absence of atypical or abnormal cells CLASS II Atypical Cytology but no evidence of malignancy CLASS III Cytology suggestive of but not conclusive for malignancy CLASS IV Cytology strongly suggestive of malignancy CLASS V Cytology conclusive for malignancy COLLECTED DATE: 06/23/2017 [facility] REPORT DATE: 06/24/2017 ELECTRONICALLY SIGNED BY: Shon Lance III, M.D. 06/24/2017 - 8:44:45 [facility]TDD
--- NOTE | 2017-06-24 09:31 | Pulmonology Progress Note ---
Pulmonary - PN: Subj Interval history: The patient is a 41-year-old black lady with chronic asthma that has severe mucoid impaction syndrome. She comes back in now with some coughing and shortness of breath and has a left upper lobe consolidation. She still has some left lower lobe infiltrate also. She has had infiltrates off and on for almost 10 years now. She has had severe mucoid impaction obstructing various bronchi. They will get better at times. She usually responds to steroids. She does not always use bronchodilators. She continues to have some coughing although she is breathing okay. Yesterday we did a bronchoscope and she has multiple segments that are plugged with thick inspissated mucus. She seems to be breathing okay today. Will check on the pathology report. Will probably plan a bronchoscope under anesthesia to try to open up several of these segments of her lung. This will take some time. Will plan for Thursday to do this. Exam (Progress Note) - Constitutional Vitals: Period Temp Pulse Resp BP Sys/Bethea Pulse Ox Last 24 Hr 97.0 F-98.7 F 53-95 17-22 126-142/61-80 92-98 Exam: General appearance: no acute distress, over weight, she is coughing a lot but looks comfortable. She is breathing okay today. - Head Head exam: Present: normal inspection, normocephalic - Eye Eye exam: Present: EOMI. Absent: scleral icterus Pupils: Present: DAX - ENT ENT exam: Present: normal exam - Neck Neck exam: Present: normal inspection. Absent: lymphadenopathy, thyromegaly - Respiratory Respiratory exam: Present: She has fair breath sounds bilaterally with some mild rhonchi and wheezing. - Cardiovascular Cardiovascular exam: Present: regular rate and rhythm. Absent: gallop, systolic murmur - GI/Abdominal GI/Abdominal exam: Present: normal bowel sounds, soft. Absent: organomegaly, tenderness - Extremities Exam Extremities exam: Absent: calf tenderness, edema - Neurological Exam Neurological exam: Present: alert, oriented X3, CN II-XII intact - Psychiatric Psychiatric exam: Present: normal affect, normal mood - Skin Skin exam: Present: warm, dry Results - Labs CBC & BMP: 06/22/17 05:32 06/23/17 03:23 Assessment and Plan (1) Asthma Status: Chronic Assessment and plan: Patient has chronic asthma but has done fairly well on steroids. She will not always take bronchodilators. She seems to be breathing okay at present. Current Visit: No Qualifiers: Asthma severity: moderate persistent (2) Type 2 diabetes mellitus Status: Chronic Assessment and plan: Her glucose is 127 Current Visit: No (3) Hypertension Status: Chronic Assessment and plan: Her blood pressure has been stable. Current Visit: No (4) Mucoid impaction of bronchi Status: Acute Assessment and plan: The patient has multiple segments of mucoid impaction. Will plan to bronchoscope under general anesthesia and see if we can open up any of the segments. Current Visit: No (5) Pneumonia Status: Acute Assessment and plan: She does have several segments of atelectatic lung because of mucus plugging. Current Visit: Yes Qualifiers: Pneumonia type: due to unspecified organism Specialty Discharge - Follow Up or Referrals
--- NOTE | 2017-06-24 11:51 | Infectious Disease Progress ---
Assessment and Plan (1) Pneumonia Status: Acute Assessment and plan: Community-acquired pneumonia, recurrent, related to asthma with severe mucous plugging in airways. Cultures negative as were Legionella and pneumococcal antigens. Recommendations: Continue empiric azithromycin and ceftriaxone. She is having repeat bronchoscopy under anesthesia tomorrow to clear some of the mucous plugs. Current Visit: Yes Qualifiers: Pneumonia type: due to unspecified organism (2) Asthma Status: Chronic Current Visit: No Qualifiers: Asthma severity: moderate persistent (3) Hypertension Status: Chronic Current Visit: No (4) Type 2 diabetes mellitus Status: Chronic Current Visit: No Infectious Disease - PN: Subj Interval history: Patient starting to feel better, still coughing but less sputum production. Less left sided pleuritic chest pain. She has not had fever. No nausea vomiting or diarrhea on antibiotics. Infectious Disease Exam (PN) - Constitutional Vitals: Temp Pulse Resp BP Pulse Ox 98.2 F 53 L 20 142/80 97 06/24/17 07:43 06/24/17 07:43 06/24/17 07:43 06/24/17 07:43 06/24/17 07:43 General appearance: no acute distress, other (coughing) Exam: General appearance: no acute distress - Eye Eye exam: Present: EOMI. no icterus Pupils: Present: DAX - ENT ENT exam: no oropharyhgeal exudates - Respiratory Respiratory exam: vesicular BS, no crepitations or wheezes heard - Cardiovascular Cardiovascular exam: regular rate and rhythm, no murmurs - GI/Abdominal GI/Abdominal exam: normal bowel sounds, soft, non-tender, no organomegaly or mass - Extremities Exam Extremities exam: no edema - Skin Skin exam: no rash Results - Labs CBC & BMP: 06/22/17 05:32 06/23/17 03:23 Lab Results: I have reviewed the past 24 hour labs (Sputum culture negative today) Specialty Discharge - Follow Up or Referrals
--- NOTE | 2017-06-24 11:53 | Hospitalist Progress Note ---
Assessment and Plan (1) Pneumonia Status: Acute Assessment and plan: History of recurrent left upper lung pneumonia which has been evaluated with fiberoptic bronchoscopy by Dr. Sameer Raya in May 2016 and in October 2016. Each time significant mucoid impaction with occlusion of the bronchi has been involved. All test for fungus and AFB have been negative. CXR showed a complete opacification of the left lower lobe suggested with associated volume loss. Visualized osseous and surrounding soft tissue structures appear grossly unchanged. She had a Bronchoscopy yesterday which showed multiple areas of obstruction due to large inspissated mucous plugs. Some of the tissues were removed and they were very friable and broke up easily. Several specimens were sent for histology. She is being scheduled for a repeat bronchoscope this time under anesthesia to try to open up several of these segments of her lung for Thursday. Plan continue nebs, steroids and antibiotics, mucinex Chest percussion therapy Follow pulm's recommendations Current Visit: No Qualifiers: Qualified Code(s): J18.1 - Lobar pneumonia, unspecified organism (2) Type 2 diabetes mellitus Status: Chronic Assessment and plan: Stable on current regime.Hemoglobin A1c noted at 5.0 Current Visit: No (3) Hypertension Status: Chronic Assessment and plan: continue with home meds Current Visit: No (4) Asthma Status: Chronic Assessment and plan: continue nebs, steroids, antibiotics. Pulm is following Current Visit: No (5) Headache Status: Acute Assessment and plan: most likely due to Migraines. Improved. MRI was unremarkable. Continue with Imitrex prn Current Visit: Yes Hospitalist: Subjective Interval history: Patient seen. She has no new complaint.Headache has improved. She is being scheduled for a repeat bronchoscope this time under anesthesia to try to open up several of these segments of her lung for Thursday. Exam - Constitutional Vitals: Period Temp Pulse Resp BP Sys/Bethea Pulse Ox Last 24 Hr 97.0 F-98.7 F 53-95 17-22 126-152/61-89 92-98 General appearance: no acute distress - Head Head exam: Present: normal inspection - Respiratory Respiratory exam: Present: rales - Cardiovascular Cardiovascular exam: Present: regular rate and rhythm - GI/Abdominal GI/Abdominal exam: Present: normal bowel sounds - Extremities Exam Extremities exam: Present: normal inspection - Neurological Exam Neurological exam: Present: alert, oriented X3 Results - Labs CBC & BMP: 06/22/17 05:32 06/23/17 03:23 Lab Results: I have reviewed the past 24 hour labs Specialty Discharge - Follow Up or Referrals
[2017-06-24 13:01] LABS: Mycoplasma pneumoniae Ab, IgG 1.71 index (<=0.90); Mycoplasma pneumoniae Ab, IgM 0.28 index (<=0.90)
--- NOTE | 2017-06-24 13:18 | Pathology Report from [facility] ---
[facility] ACCESSION # : [id number] PATIENT NAME : Jaki Wyatt ORDERING DR : MANDEEP GRIMES MD CLINICAL HX: Asthma, mucosal impaction syndrome POST-OP DX: Same SPECIMEN INFO: Bilateral bronchial BXS x 5 GROSS DESCRIPTION: The specimen is received in formalin labeled with the patients name and consists of multiple fragments of mucosal soft tissue collectively measuring 0.9 x 0.5 cm. Submitted in one cassette. DIAGNOSIS FOR JAKI WYATT: BILATERAL ENDOBRONCHIAL BIOPSIES: Predominately hemorrhagic mucoid debris with scant benign respiratory epithelium c/w mucus impaction. COLLECTED DATE: 06/23/2017 [facility] REPORT DATE: 06/24/2017 ELECTRONICALLY SIGNED BY: Rolando Lawton M.D. 06/24/2017 - 10:08:55 [facility]ITALLuciana
[2017-06-24] MEDS: AZITHROMYCIN INJ 500 MG in SODIUM CHLORIDE 0.9% 250 ML IV SCH (20:49)
[2017-06-25] MEDS: methylPREDNISolone SOD SUC 125 MG/2 ML VIAL IV SCH ×3 (00:49→16:41)
[2017-06-25] MEDS: MORPHINE 2 MG/1 ML SYRINGE IV PRN ×4 (00:52→22:12)
[2017-06-25] MEDS: ALBUTEROL/IPRATROPIUM 3 ML NEB RESP TX SCH ×4 (01:42→20:27)
[2017-06-25] MEDS: DORNASE ALFA 2.5 MG/2.5 ML VIAL RESP TX SCH ×2 (07:34→20:27)
[2017-06-25] MEDS: SODIUM CHLORIDE 0.9% 1,000 ML IV SCH ×2 (07:36→08:38)
[2017-06-25] MEDS: INSULIN REGULAR 100 UNIT/ML SUBCUT SCH ×4 (07:40→22:15)
[2017-06-25] MEDS: cefTRIAXone 1,000 MG in SODIUM CHLORIDE 0.9% 100 ML IV SCH (08:40)
[2017-06-25] MEDS: MONTELUKAST 10 MG TABLET PO SCH (08:40)
[2017-06-25] MEDS: PANTOPRAZOLE 40 MG TABLET PO SCH (08:40)
[2017-06-25] MEDS: LISINOPRIL/HCTZ 20-12.5 MG TABLET PO SCH (08:40)
[2017-06-25] MEDS: ENOXAPARIN 40 MG/0.4 ML SYRINGE SUBCUT SCH (08:40)
--- NOTE | 2017-06-25 09:13 | Pulmonology Progress Note ---
Pulmonary - PN: Subj Interval history: The patient is a 41-year-old black lady with chronic asthma that has severe mucoid impaction syndrome. She comes back in now with some coughing and shortness of breath and has a left upper lobe consolidation. She still has some left lower lobe infiltrate also. She has had infiltrates off and on for almost 10 years now. She has had severe mucoid impaction obstructing various bronchi. They will get better at times. She usually responds to steroids. She does not always use bronchodilators. She continues to have some coughing although she is breathing okay. She looks like she feels a little better today. Overall her breathing is stable. Exam (Progress Note) - Constitutional Vitals: Period Temp Pulse Resp BP Sys/Bethea Pulse Ox Last 24 Hr 97.4 F-98.3 F 53-74 17-24 132-165/71-89 94-99 Exam: General appearance: no acute distress, over weight, she is coughing a lot but looks comfortable. She is breathing okay today. She looks like she feels a little better. - Head Head exam: Present: normal inspection, normocephalic - Eye Eye exam: Present: EOMI. Absent: scleral icterus Pupils: Present: DAX - ENT ENT exam: Present: normal exam - Neck Neck exam: Present: normal inspection. Absent: lymphadenopathy, thyromegaly - Respiratory Respiratory exam: Present: She has fair breath sounds bilaterally with some mild rhonchi and wheezing. - Cardiovascular Cardiovascular exam: Present: regular rate and rhythm. Absent: gallop, systolic murmur - GI/Abdominal GI/Abdominal exam: Present: normal bowel sounds, soft. Absent: organomegaly, tenderness - Extremities Exam Extremities exam: Absent: calf tenderness, edema - Neurological Exam Neurological exam: Present: alert, oriented X3, CN II-XII intact - Psychiatric Psychiatric exam: Present: normal affect, normal mood - Skin Skin exam: Present: warm, dry Results - Labs CBC & BMP: 06/22/17 05:32 06/23/17 03:23 Labs: The path report is consistent with mucoid debris. Assessment and Plan (1) Asthma Status: Chronic Assessment and plan: Patient has chronic asthma but has done fairly well on steroids. She will not always take bronchodilators. She seems to be breathing okay at present. Current Visit: No Qualifiers: Asthma severity: moderate persistent (2) Type 2 diabetes mellitus Status: Chronic Assessment and plan: Her glucose is 116 Current Visit: No (3) Hypertension Status: Chronic Assessment and plan: Her blood pressure has been stable. Current Visit: No (4) Mucoid impaction of bronchi Status: Acute Assessment and plan: The patient has multiple segments of mucoid impaction. Will plan to bronchoscope under anesthesia tomorrow and see if I can open up some segments of lung. Current Visit: No (5) Pneumonia Status: Acute Assessment and plan: She does have several segments of atelectatic lung because of mucus plugging. Hopefully we can open up her airway a little better with another bronchoscope. Current Visit: Yes Qualifiers: Pneumonia type: due to unspecified organism Specialty Discharge - Follow Up or Referrals
[2017-06-25] MEDS: FUROSEMIDE 40 MG/4 ML VIAL IV SCH (10:51)
--- NOTE | 2017-06-25 14:10 | Hospitalist Progress Note ---
Assessment and Plan (1) Pneumonia Status: Acute Assessment and plan: History of recurrent left upper lung pneumonia which has been evaluated with fiberoptic bronchoscopy by Dr. Sameer Raya in May 2016 and in October 2016. Each time significant mucoid impaction with occlusion of the bronchi has been involved. All test for fungus and AFB have been negative. CXR showed a complete opacification of the left lower lobe suggested with associated volume loss. Visualized osseous and surrounding soft tissue structures appear grossly unchanged. She had a Bronchoscopy which showed multiple areas of obstruction due to large inspissated mucous plugs. Some of the tissues were removed and they were very friable and broke up easily. Several specimens were sent for histology. She is being scheduled for a repeat bronchoscope this time under anesthesia to try to open up several of these segments of her lung in am. Plan continue nebs, steroids and antibiotics, mucinex Chest percussion therapy Follow pulm's recommendations will add Lasix x 3doses due to bilateral pedal edema Current Visit: No Qualifiers: Pneumonia type: due to unspecified organism Laterality: left Lung location: lower lobe of lung Qualified Code(s): J18.9 - Pneumonia, unspecified organism (2) Type 2 diabetes mellitus Status: Chronic Assessment and plan: Stable on current regime.Hemoglobin A1c noted at 5.0 Current Visit: No (3) Hypertension Status: Chronic Assessment and plan: continue with home meds Current Visit: No (4) Asthma Status: Chronic Assessment and plan: continue nebs, steroids, antibiotics. Pulm is following Current Visit: No Qualifiers: Asthma severity: moderate persistent (5) Headache Status: Acute Assessment and plan: most likely due to Migraines. Improved. MRI was unremarkable. Continue with Imitrex prn Current Visit: Yes Hospitalist: Subjective Interval history: patient was seen sitting up on a chair. She does have bilateral pedal edema. Headache has improved Exam - Constitutional Vitals: Period Temp Pulse Resp BP Sys/Bethea Pulse Ox Last 24 Hr 97.4 F-98.3 F 53-98 17-24 132-165/71-94 94-99 General appearance: no acute distress - Head Head exam: Present: normal inspection - Respiratory Respiratory exam: Present: clear to auscultation bilaterally - Cardiovascular Cardiovascular exam: Present: regular rate and rhythm - GI/Abdominal GI/Abdominal exam: Present: normal bowel sounds - Extremities Exam Extremities exam: Present: other - Neurological Exam Neurological exam: Present: alert, oriented X3 Results - Labs CBC & BMP: 06/22/17 05:32 06/23/17 03:23 Lab Results: I have reviewed the past 24 hour labs Specialty Discharge - Follow Up or Referrals
--- NOTE | 2017-06-25 16:04 | Infectious Disease Progress ---
Assessment and Plan (1) Pneumonia Status: Acute Assessment and plan: Community-acquired pneumonia, recurrent, related to asthma with severe mucous plugging in airways. Cultures negative as were Legionella and pneumococcal antigens. Recommendations: Continue empiric antibiotics and follow-up cultures. Current Visit: Yes Qualifiers: Pneumonia type: due to unspecified organism (2) Asthma Status: Chronic Current Visit: No Qualifiers: Asthma severity: moderate persistent (3) Hypertension Status: Chronic Current Visit: No (4) Type 2 diabetes mellitus Status: Chronic Current Visit: No Infectious Disease - PN: Subj Interval history: Patient doing relatively okay, she is steadily improving every day. No fever. Some cough but less left-sided pleuritic chest pain. No nausea vomiting or diarrhea on the antibiotics. Infectious Disease Exam (PN) - Constitutional Vitals: Temp Pulse Resp BP Pulse Ox 97.5 F L 98 H 18 156/94 98 06/25/17 11:14 06/25/17 13:05 06/25/17 13:05 06/25/17 11:14 06/25/17 13:05 General appearance: no acute distress Exam: General appearance: no acute distress - Eye Eye exam: Present: EOMI. no icterus Pupils: Present: DAX - ENT ENT exam: no oropharyhgeal exudates - Respiratory Respiratory exam: vesicular BS, crepitations and wheezes heard throughout left lung ruff - Cardiovascular Cardiovascular exam: regular rate and rhythm, no murmurs - GI/Abdominal GI/Abdominal exam: normal bowel sounds, soft, non-tender, no organomegaly or mass - Extremities Exam Extremities exam: no edema - Skin Skin exam: no rash Results - Labs CBC & BMP: 06/22/17 05:32 06/23/17 03:23 Lab Results: I have reviewed the past 24 hour labs (Sputum culture with gram- negative rods and another with gram-positive cocci) Specialty Discharge - Follow Up or Referrals
[2017-06-25] MEDS: AZITHROMYCIN INJ 500 MG in SODIUM CHLORIDE 0.9% 250 ML IV SCH (20:37)
[2017-06-26] MEDS: ALBUTEROL/IPRATROPIUM 3 ML NEB RESP TX SCH ×4 (01:11→19:14)
[2017-06-26] MEDS: methylPREDNISolone SOD SUC 125 MG/2 ML VIAL IV SCH ×3 (01:30→17:06)
[2017-06-26] MEDS: MORPHINE 2 MG/1 ML SYRINGE IV PRN ×3 (04:50→23:35)
[2017-06-26 06:32] LABS: Basophils # 0.1 10*3/uL (0.0-0.2); Basophils % 0.2 % (0.0-0.8); Hematocrit 34.1 VOL% (35.7-47.0); Hemoglobin 11.5 GM/DL (12.0-16.0); Immature Granulocytes % 11.6 %; Immature Granulocytes Absolute 3.26 #; Lymphocytes % 10.5 % (21.3-54.2); Mean Corpuscular HGB Conc 33.7 GM/DL (32-36); Mean Corpuscular Hemoglobin 27 PG (27-34); Mean Platelet Volume 9.5 FL (9.6-12.0); Monocytes # 1.4 10*3/uL (0.11-0.8); Monocytes % 5.1 % (1.7-12.7); NRBC # 0.07 10*3/uL; Neutrophils # 20.5 10*3/uL (1.4-7.4); Neutrophils % 72.6 % (38.7-73.9); Platelet Count 400 T/CUMM (130-400); Red Blood Count 4.26 MC/CUMM (3.8-5.5); Red Cell Distribution Width 15.2 % (9.3-17.3); White Blood Count 28.2 T/CUMM (4-12)
[2017-06-26 06:56] LABS: Band Neutrophils 3 % (0-10); Hypochromasia 2+; Lymphocytes 11 % (20-55); Microcytosis 1+; Platelet Estimate Increased; Segmented Neutrophils 76 % (50-85); Target Cells Slight; Total Cells Counted 100
[2017-06-26] MEDS ORDERED: GLYCOPYRROLATE 0.4 MG/2 ML VIAL IM ONE (06:56)
[2017-06-26 07:03] LABS: Calcium 7.8 MG/DL (8.5-10.1); Osmolality,Calculated 277.4 MOS/KG (273-304); Potassium 3.7 MMOL/L (3.5-5.1)
[2017-06-26] MEDS: INSULIN REGULAR 100 UNIT/ML SUBCUT SCH ×4 (07:38→21:00)
[2017-06-26] MEDS: DORNASE ALFA 2.5 MG/2.5 ML VIAL RESP TX SCH ×2 (07:40→19:14)
--- NOTE | 2017-06-26 09:04 | Pulmonology Progress Note ---
Pulmonary - PN: Subj Interval history: The patient is a 41-year-old black lady with chronic asthma that has severe mucoid impaction syndrome. She comes back in now with some coughing and shortness of breath and has a left upper lobe consolidation. She still has some left lower lobe infiltrate also. She has had infiltrates off and on for almost 10 years now. She has had severe mucoid impaction obstructing various bronchi. They will get better at times. She usually responds to steroids. She does not always use bronchodilators. She continues to have some coughing although she is breathing okay. She had a fairly good night last night. Her breathing is doing okay at present. I will proceed with a bronchoscope and try to clear her airways a little better. Exam (Progress Note) - Constitutional Vitals: Period Temp Pulse Resp BP Sys/Bethea Pulse Ox Last 24 Hr 97.1 F-98.6 F 54-98 15-20 127-177/67-101 95-99 Exam: General appearance: no acute distress, over weight, she is coughing a lot but looks comfortable. She is breathing okay today. She looks like she feels a little better. - Head Head exam: Present: normal inspection, normocephalic - Eye Eye exam: Present: EOMI. Absent: scleral icterus Pupils: Present: DAX - ENT ENT exam: Present: normal exam - Neck Neck exam: Present: normal inspection. Absent: lymphadenopathy, thyromegaly - Respiratory Respiratory exam: Present: She has fair breath sounds bilaterally and her lungs sound clearer. - Cardiovascular Cardiovascular exam: Present: regular rate and rhythm. Absent: gallop, systolic murmur - GI/Abdominal GI/Abdominal exam: Present: normal bowel sounds, soft. Absent: organomegaly, tenderness - Extremities Exam Extremities exam: Absent: calf tenderness, edema - Neurological Exam Neurological exam: Present: alert, oriented X3, CN II-XII intact - Psychiatric Psychiatric exam: Present: normal affect, normal mood - Skin Skin exam: Present: warm, dry Results - Labs CBC & BMP: 06/26/17 05:36 06/26/17 05:36 Assessment and Plan (1) Asthma Status: Chronic Assessment and plan: Patient has chronic asthma but has done fairly well on steroids. She will not always take bronchodilators. She seems to be breathing okay at present. Current Visit: No Qualifiers: Asthma severity: moderate persistent (2) Type 2 diabetes mellitus Status: Chronic Assessment and plan: Her glucose is 109 Current Visit: No (3) Hypertension Status: Chronic Assessment and plan: Her blood pressure has been stable. Current Visit: No (4) Mucoid impaction of bronchi Status: Acute Assessment and plan: The patient has multiple segments of mucoid impaction. Will try to put her to sleep and do the bronchoscope again. Current Visit: No (5) Pneumonia Status: Acute Assessment and plan: She does have several segments of atelectatic lung because of mucus plugging. Hopefully we can open up her airway a little better with another bronchoscope. Current Visit: Yes Qualifiers: Pneumonia type: due to unspecified organism Specialty Discharge - Follow Up or Referrals
--- NOTE | 2017-06-26 09:09 | Operative Note ---
Date of procedure: 06/26/17 Pre-op diagnosis: Mucoid impaction syndrome Post-op diagnosis: other (Multiple segments with inspissated mucous plugs.) Procedure: The patient is a 41-year-old that has multiple areas of atelectasis due to mucous plugging. Will plan a bronchoscope to try to remove as much mucus plugging as possible. Timeout was performed to identify the patient. The patient is in the bronchoscopy lab. Anesthesia: She was given diprivan by the nurse adjunct professor of voice. See the report. Procedure: The fiberoptic bronchoscope was passed transnasally through the vocal cords into the lungs. The bronchopulmonary segments were identified but no specimens obtained. Findings: There are multiple segments that are plugged with very thick inspissated mucus. The left lower lobe and left upper lobe are the worst. There is marked mucosal swelling in these areas. The large forceps were used to remove much mucus and debris as possible in the left lower lobe, left upper lobe and right lower lobe. Large plugs were removed. The segments were irrigated and cleared. The procedure took almost an hour. Much of the airway was cleared however. She did tolerate the procedure fairly well without problems. Impression: Severe mucoid impaction syndrome. Plan: We will continue with prednisone and bronchodilator therapy. Anesthesia: conscious sedation Surgeon / Physician: Brian Raya Estimated blood loss: none Specimens: none sent Condition: stable Disposition: floor Results - Labs CBC & BMP: 06/26/17 05:36 06/26/17 05:36 Discharge Plan - Discharge Medications No Action Lisinopril/Hydrochlorothiazide [Lisinopril-Hctz 20-12.5 mg Tab] 1 each PO DAILY Albuterol Neb [Proventil Neb] 0.63 mg RESP TX RT Q4H PRN #120 nebulization solution PRN Reason: Shortness Of Breath/Wheezing Metformin HCl 500 mg PO BID W/MEALS - Follow Up or Referral - Forms/Instructions Instructions: Asthma (GEN), Viral Pneumonia (GEN)
[2017-06-26] MEDS ORDERED: PROPOFOL 200 MG/20 ML VIAL IV ONE (09:31)
[2017-06-26] MEDS ORDERED: hydrALAZINE 20 MG/1 ML VIAL ONE (09:32)
[2017-06-26] MEDS ORDERED: fentaNYL 100 MCG/2 ML VIAL ONE (09:32)
[2017-06-26] MEDS ORDERED: SODIUM CHLORIDE 0.9% 100 ML IV ONE (09:33)
[2017-06-26] MEDS ORDERED: LABETALOL 100 MG/20 ML VIAL IV ONE (09:33)
[2017-06-26] MEDS ORDERED: LACTATED RINGERS 1,000 ML IV ONE (09:33)
--- NOTE | 2017-06-26 09:37 | Anesthesia Post-Op ---
Anesthesia Post OP - Post Ansesthetic Evaluation Patient seen in post op: Yes Resp: within normal limits CV: within normal limits Mental: within normal limits Temp: within normal limits [id number]: within normal limits Nausea and Vomiting: within normal limits Pain: within normal limits
[2017-06-26] MEDS: ENOXAPARIN 40 MG/0.4 ML SYRINGE SUBCUT SCH (10:05)
[2017-06-26] MEDS: FUROSEMIDE 40 MG/4 ML VIAL IV SCH (10:05)
[2017-06-26] MEDS: cefTRIAXone 1,000 MG in SODIUM CHLORIDE 0.9% 100 ML IV SCH (10:06)
[2017-06-26] MEDS: MONTELUKAST 10 MG TABLET PO SCH (10:06)
[2017-06-26] MEDS: LISINOPRIL/HCTZ 20-12.5 MG TABLET PO SCH (10:06)
[2017-06-26] MEDS: PANTOPRAZOLE 40 MG TABLET PO SCH (10:06)
--- NOTE | 2017-06-26 12:15 | Hospitalist Progress Note ---
Assessment and Plan (1) Pneumonia Status: Acute Assessment and plan: History of recurrent left upper lung pneumonia which has been evaluated with fiberoptic bronchoscopy by Dr. Sameer Raya in May 2016 and in October 2016. Each time significant mucoid impaction with occlusion of the bronchi has been involved. All test for fungus and AFB have been negative. CXR showed a complete opacification of the left lower lobe suggested with associated volume loss. Visualized osseous and surrounding soft tissue structures appear grossly unchanged. She has had a Bronchoscopy which showed multiple areas of obstruction due to large inspissated mucous plugs. Some of the tissues were removed and they were very friable and broke up easily. Several specimens were sent for histology. Patient a repeat bronchoscope under anesthesia this am-The large forceps were used to remove much mucus and debris as possible in the left lower lobe, left upper lobe and right lower lobe. Large plugs were removed. Plan continue nebs, steroids and antibiotics, mucinex, bronchodilators,Lasix Chest percussion therapy Follow pulm's recommendations Current Visit: No Qualifiers: Pneumonia type: due to unspecified organism Laterality: left Lung location: lower lobe of lung Qualified Code(s): J18.9 - Pneumonia, unspecified organism (2) Type 2 diabetes mellitus Status: Chronic Assessment and plan: Stable on current regime.Hemoglobin A1c noted at 5.0 Current Visit: No (3) Hypertension Status: Chronic Assessment and plan: continue with home meds Current Visit: No (4) Asthma Status: Chronic Assessment and plan: continue nebs, steroids, antibiotics. Pulm is following Current Visit: No Qualifiers: Asthma severity: moderate persistent (5) Headache Status: Acute Assessment and plan: most likely due to Migraines. Improved. MRI was unremarkable. Continue with Imitrex prn Current Visit: Yes Hospitalist: Subjective Interval history: Patient went for Bronchoscopy under anaesthesia this am.The large forceps were used to remove much mucus and debris as possible in the left lower lobe, left upper lobe and right lower lobe. Large plugs were removed. Exam - Constitutional Vitals: Period Temp Pulse Resp BP Sys/Bethea Pulse Ox Last 24 Hr 97.1 F-98.6 F 54-98 15-26 117-177/56-101 95-99 General appearance: no acute distress - Head Head exam: Present: normal inspection - Respiratory Respiratory exam: Present: clear to auscultation bilaterally - Cardiovascular Cardiovascular exam: Present: regular rate and rhythm - GI/Abdominal GI/Abdominal exam: Present: normal bowel sounds - Extremities Exam Extremities exam: Present: edema Results - Labs CBC & BMP: 06/26/17 05:36 06/26/17 05:36 Lab Results: I have reviewed the past 24 hour labs Specialty Discharge - Follow Up or Referrals
--- NOTE | 2017-06-26 12:59 | Infectious Disease Progress ---
Assessment and Plan (1) Pneumonia Status: Acute Assessment and plan: Recommendations: 1. Discontinue azithromycin and ceftriaxone 2. Start Bactrim 5 mg/kg trimethoprim component every 8 hours. When ready for discharge will switch to oral Discussed with family at bedside. Current Visit: Yes Qualifiers: Pneumonia type: due to unspecified organism (2) Asthma Status: Chronic Current Visit: No Qualifiers: Asthma severity: moderate persistent (3) Hypertension Status: Chronic Current Visit: No (4) Type 2 diabetes mellitus Status: Chronic Current Visit: No Infectious Disease - PN: Subj Interval history: Patient doing well, had repeat BAL today with clearance of more thick secretions. Breathing better with less pleuritic chest pain. Coughing a bit with minimal sputum. No fever. Tolerating antibiotics without nausea vomiting or diarrhea. Infectious Disease Exam (PN) - Constitutional Vitals: Temp Pulse Resp BP Pulse Ox 98.2 F 63 22 134/76 98 06/26/17 12:00 06/26/17 12:00 06/26/17 12:00 06/26/17 12:00 06/26/17 12:00 General appearance: no acute distress Exam: General appearance: no acute distress - Eye Eye exam: Present: EOMI. no icterus Pupils: Present: DAX - ENT ENT exam: no oropharyhgeal exudates - Respiratory Respiratory exam: Scattered rhonchi throughout left lung ruff - Cardiovascular Cardiovascular exam: regular rate and rhythm, no murmurs - GI/Abdominal GI/Abdominal exam: normal bowel sounds, soft, non-tender, no organomegaly or mass - Extremities Exam Extremities exam: no edema - Skin Skin exam: no rash Results - Labs CBC & BMP: 06/26/17 05:36 06/26/17 05:36 Lab Results: I have reviewed the past 24 hour labs (MRSA and stenotrophomonas cultures from sputum) Specialty Discharge - Follow Up or Referrals
[2017-06-26] MEDS: TRIMETH IV SCH ×2 (15:19→21:50)
[2017-06-26] MEDS: SULFAMETH IV SCH ×2 (15:19→21:50)
[2017-06-26] MEDS: DEXTROSE 5% IV SCH ×2 (15:19→21:50)
[2017-06-27] MEDS: methylPREDNISolone SOD SUC 125 MG/2 ML VIAL IV SCH (00:40)
[2017-06-27] MEDS: ALBUTEROL/IPRATROPIUM 3 ML NEB RESP TX SCH ×4 (00:52→18:57)
[2017-06-27] MEDS: MORPHINE 2 MG/1 ML SYRINGE IV PRN ×4 (05:37→21:12)
[2017-06-27] MEDS: SULFAMETH IV SCH (05:38)
[2017-06-27] MEDS: DEXTROSE 5% IV SCH (05:38)
[2017-06-27] MEDS: TRIMETH IV SCH (05:38)
--- NOTE | 2017-06-27 07:15 | Pulmonology Progress Note ---
Pulmonary - PN: Subj Interval history: The patient is a 41-year-old black lady with chronic asthma that has severe mucoid impaction syndrome. She comes back in now with some coughing and shortness of breath and has a left upper lobe consolidation. She still has some left lower lobe infiltrate also. She has had infiltrates off and on for almost 10 years now. She has had severe mucoid impaction obstructing various bronchi. She did fairly well with the bronchoscope yesterday and we were able to remove a large amount of mucoid impaction. She says her throat is a little sore today but otherwise doing okay. Her breathing is fairly stable. Will check a chest x-ray and she can probably go home soon. Exam (Progress Note) - Constitutional Vitals: Period Temp Pulse Resp BP Sys/Bethea Pulse Ox Last 24 Hr 97.4 F-98.4 F 56-98 16-26 116-175/56-101 94-100 Exam: General appearance: no acute distress, over weight, she is breathing comfortably today. - Head Head exam: Present: normal inspection, normocephalic - Eye Eye exam: Present: EOMI. Absent: scleral icterus Pupils: Present: DAX - ENT ENT exam: Present: normal exam - Neck Neck exam: Present: normal inspection. Absent: lymphadenopathy, thyromegaly - Respiratory Respiratory exam: Present: She has fair breath sounds bilaterally and her lungs sound clearer. She is really not having much wheezing now. - Cardiovascular Cardiovascular exam: Present: regular rate and rhythm. Absent: gallop, systolic murmur - GI/Abdominal GI/Abdominal exam: Present: normal bowel sounds, soft. Absent: organomegaly, tenderness - Extremities Exam Extremities exam: Absent: calf tenderness, edema - Neurological Exam Neurological exam: Present: alert, oriented X3, CN II-XII intact - Psychiatric Psychiatric exam: Present: normal affect, normal mood - Skin Skin exam: Present: warm, dry Results - Labs CBC & BMP: 06/26/17 05:36 06/26/17 05:36 Assessment and Plan (1) Asthma Status: Chronic Assessment and plan: Patient has chronic asthma but has done fairly well on steroids. She will not always take bronchodilators. She seems to be breathing okay at present. Will leave on prednisone for now. Current Visit: No Qualifiers: Asthma severity: moderate persistent (2) Type 2 diabetes mellitus Status: Chronic Assessment and plan: Her glucose is 112 Current Visit: No (3) Hypertension Status: Chronic Assessment and plan: Her blood pressure has been stable. Current Visit: No (4) Mucoid impaction of bronchi Status: Acute Assessment and plan: The patient has multiple segments of mucoid impaction. We were able to remove a large amount of impaction yesterday. Her breathing seems to be better. Will check a chest x-ray today. She can go home soon. Current Visit: No (5) Pneumonia Status: Acute Assessment and plan: She does have several segments of atelectatic lung because of mucus plugging. Her cultures are noted. Will leave her on oral Bactrim. Current Visit: Yes Qualifiers: Pneumonia type: due to unspecified organism Specialty Discharge - Follow Up or Referrals
[2017-06-27] MEDS: DORNASE ALFA 2.5 MG/2.5 ML VIAL RESP TX SCH ×2 (07:25→18:58)
[2017-06-27] MEDS: ENOXAPARIN 40 MG/0.4 ML SYRINGE SUBCUT SCH (08:48)
[2017-06-27] MEDS: LISINOPRIL/HCTZ 20-12.5 MG TABLET PO SCH (08:48)
[2017-06-27] MEDS: PANTOPRAZOLE 40 MG TABLET PO SCH (08:49)
[2017-06-27] MEDS: MONTELUKAST 10 MG TABLET PO SCH (08:49)
[2017-06-27] MEDS: SULFAMETHOX/TRIMETHOPRIM 800-160 MG TABLET PO SCH ×2 (08:49→21:05)
[2017-06-27] MEDS: FUROSEMIDE 40 MG/4 ML VIAL IV SCH (08:49)
[2017-06-27] MEDS: predniSONE 20 MG TABLET PO SCH (08:49)
[2017-06-27] MEDS: INSULIN REGULAR 100 UNIT/ML SUBCUT SCH ×4 (08:50→23:23)
--- NOTE | 2017-06-27 10:24 | Hospitalist Progress Note ---
Assessment and Plan (1) Pneumonia Status: Acute Assessment and plan: History of recurrent left upper lung pneumonia which has been evaluated with fiberoptic bronchoscopy by Dr. Sameer Raya in May 2016 and in October 2016. Each time significant mucoid impaction with occlusion of the bronchi has been involved. All test for fungus and AFB have been negative. CXR showed a complete opacification of the left lower lobe suggested with associated volume loss. Visualized osseous and surrounding soft tissue structures appear grossly unchanged. She has had a Bronchoscopy which showed multiple areas of obstruction due to large inspissated mucous plugs. Some of the tissues were removed and they were very friable and broke up easily. Several specimens were sent for histology. Patient a repeat bronchoscope under anesthesia : The large forceps were used to remove much mucus and debris as possible in the left lower lobe, left upper lobe and right lower lobe. Large plugs were removed. She breathes better this am. Plan Follow Pulm's recommendation, safe to dc Lasix. Chest percussion therapy Current Visit: No Qualifiers: Pneumonia type: due to unspecified organism Laterality: left Lung location: lower lobe of lung Qualified Code(s): J18.9 - Pneumonia, unspecified organism (2) Type 2 diabetes mellitus Status: Chronic Assessment and plan: Stable on current regime.Hemoglobin A1c noted at 5.0 Current Visit: No (3) Hypertension Status: Chronic Assessment and plan: stable Current Visit: No (4) Asthma Status: Chronic Assessment and plan: continue Pulm's plan Current Visit: No Qualifiers: Asthma severity: moderate persistent (5) Headache Status: Acute Assessment and plan: most likely due to Migraines. MRI was unremarkable. Continue with Imitrex prn Current Visit: Yes Hospitalist: Subjective Interval history: Patient had a bronchoscopy yesterday and she breathes better this am. She complains of a mild headache. Her LE edema has improved. Exam - Constitutional Vitals: Period Temp Pulse Resp BP Sys/Bethea Pulse Ox Last 24 Hr 97.1 F-98.4 F 63-98 16-60 116-134/59-76 94-100 General appearance: no acute distress - Head Head exam: Present: normal inspection - Respiratory Respiratory exam: Present: clear to auscultation bilaterally - Cardiovascular Cardiovascular exam: Present: regular rate and rhythm - GI/Abdominal GI/Abdominal exam: Present: normal bowel sounds - Extremities Exam Extremities exam: Present: normal inspection - Neurological Exam Neurological exam: Present: alert, oriented X3 Results - Labs CBC & BMP: 06/26/17 05:36 06/26/17 05:36 Lab Results: I have reviewed the past 24 hour labs Specialty Discharge - Follow Up or Referrals
[2017-06-27] MEDS: SUMAtriptan 6 MG/0.5 ML VIAL SUBCUT PRN (12:56)
--- NOTE | 2017-06-27 13:22 | XRay Report ---
History: Bilateral pulmonary infiltrate Date: 06/27/2017 Study: Chest x-ray AP portable Comparison exam: June 22, 2017 There is continued cardiomegaly. The mediastinal contours are stable. The pulmonary vasculature is not engorged. There is reduced parenchymal consolidation in the left midlung compared to the previous study. There is also slightly reduced parenchymal consolidation in the left lower lobe. Strandy atelectasis/infiltrate in the medial right lung base is also minimally improved. There is no interval worsening. There is no pleural effusion. Osseous structures are similar. Impression: Persistent but mildly improved pneumonia of the left lung compared to the previous study PROCEDURE INTERPRETED AT [facility] DEPARTMENT OF RADIOLOGY Final Report Signed by: Dr. Bridgette Mackay
[2017-06-28] MEDS: ALBUTEROL/IPRATROPIUM 3 ML NEB RESP TX SCH ×4 (00:45→19:29)
[2017-06-28] MEDS: MORPHINE 2 MG/1 ML SYRINGE IV PRN ×3 (01:44→18:56)
[2017-06-28] MEDS: INSULIN REGULAR 100 UNIT/ML SUBCUT SCH ×4 (07:29→22:23)
[2017-06-28] MEDS: DORNASE ALFA 2.5 MG/2.5 ML VIAL RESP TX SCH ×2 (07:52→19:29)
--- NOTE | 2017-06-28 08:57 | Pulmonology Progress Note ---
Pulmonary - PN: Subj Interval history: The patient is a 41-year-old black lady with chronic asthma that has severe mucoid impaction syndrome. She comes back in now with some coughing and shortness of breath and has a left upper lobe consolidation. She still has some left lower lobe infiltrate also. She has had infiltrates off and on for almost 10 years now. She has had severe mucoid impaction obstructing various bronchi. She did fairly well with the bronchoscope yesterday and we were able to remove a large amount of mucoid impaction. She says she is breathing better but complains of sore throat. She is also having some sinus stuffiness. Her coughing and wheezing are better. Exam (Progress Note) - Constitutional Vitals: Period Temp Pulse Resp BP Sys/Bethea Pulse Ox Last 24 Hr 97.4 F-98.3 F 63-82 15-22 105-134/53-80 95-100 Exam: General appearance: no acute distress, over weight, she is breathing comfortably today. - Head Head exam: Present: normal inspection, normocephalic - Eye Eye exam: Present: EOMI. Absent: scleral icterus Pupils: Present: DAX - ENT ENT exam: Present: She does have dry mucous membranes and some sinus stuffiness. - Neck Neck exam: Present: normal inspection. Absent: lymphadenopathy, thyromegaly - Respiratory Respiratory exam: Present: She has fair breath sounds bilaterally and her lungs sound clearer. She is really not having much wheezing now. - Cardiovascular Cardiovascular exam: Present: regular rate and rhythm. Absent: gallop, systolic murmur - GI/Abdominal GI/Abdominal exam: Present: normal bowel sounds, soft. Absent: organomegaly, tenderness - Extremities Exam Extremities exam: Absent: calf tenderness, edema - Neurological Exam Neurological exam: Present: alert, oriented X3, CN II-XII intact - Psychiatric Psychiatric exam: Present: normal affect, normal mood - Skin Skin exam: Present: warm, dry Results - Labs CBC & BMP: 06/26/17 05:36 06/26/17 05:36 Assessment and Plan (1) Asthma Status: Chronic Assessment and plan: Patient has chronic asthma but has done fairly well on steroids. She will not always take bronchodilators. She seems to be breathing okay at present. Will leave on prednisone for now. Current Visit: No Qualifiers: Asthma severity: moderate persistent (2) Type 2 diabetes mellitus Status: Chronic Assessment and plan: Her glucose is 78 today. Current Visit: No (3) Hypertension Status: Chronic Assessment and plan: Her blood pressure has been stable. Current Visit: No (4) Mucoid impaction of bronchi Status: Acute Assessment and plan: The patient has multiple segments of mucoid impaction. We were able to remove a large amount of impaction. Her chest x-ray is better yesterday. Her breathing seems to be better. Current Visit: No (5) Pneumonia Status: Acute Assessment and plan: She does have several segments of atelectatic lung because of mucus plugging. Her cultures are noted. Will leave her on oral Bactrim. We will add Mycostatin for her throat and also try some sinus medicine. Current Visit: Yes Qualifiers: Pneumonia type: due to unspecified organism Specialty Discharge - Follow Up or Referrals
[2017-06-28] MEDS: PANTOPRAZOLE 40 MG TABLET PO SCH (09:14)
[2017-06-28] MEDS: LISINOPRIL/HCTZ 20-12.5 MG TABLET PO SCH (09:14)
[2017-06-28] MEDS: SULFAMETHOX/TRIMETHOPRIM 800-160 MG TABLET PO SCH ×2 (09:14→20:35)
[2017-06-28] MEDS: MONTELUKAST 10 MG TABLET PO SCH (09:14)
[2017-06-28] MEDS: predniSONE 20 MG TABLET PO SCH (09:42)
[2017-06-28] MEDS: SUMAtriptan 6 MG/0.5 ML VIAL SUBCUT PRN (09:43)
[2017-06-28] MEDS: ENOXAPARIN 40 MG/0.4 ML SYRINGE SUBCUT SCH (09:43)
[2017-06-28] MEDS: FLUTICASONE 50 MCG NASAL SPRAY 16 GM BOTTLE BOTH NARES SCH (10:24)
[2017-06-28] MEDS: NYSTATIN 500,000 UNIT/5 ML UDCUP SWISH/SWAL SCH ×4 (10:25→20:36)
[2017-06-28] MEDS: PHENOL 1.4% THROAT SPRAY 177 ML BOTTLE PO PRN ×2 (10:25→20:38)
[2017-06-28] MEDS: CETIRIZINE 10 MG TABLET PO SCH (10:25)
--- NOTE | 2017-06-28 10:52 | Hospitalist Progress Note ---
Assessment and Plan (1) Pneumonia Status: Acute Assessment and plan: History of recurrent left upper lung pneumonia which has been evaluated with fiberoptic bronchoscopy by Dr. Sameer Raya in May 2016 and in October 2016. Each time significant mucoid impaction with occlusion of the bronchi has been involved. All test for fungus and AFB have been negative. CXR showed a complete opacification of the left lower lobe suggested with associated volume loss. Visualized osseous and surrounding soft tissue structures appear grossly unchanged. She has had a Bronchoscopy which showed multiple areas of obstruction due to large inspissated mucous plugs. Some of the tissues were removed and they were very friable and broke up easily. Several specimens were sent for histology. Patient a repeat bronchoscope under anesthesia : The large forceps were used to remove much mucus and debris as possible in the left lower lobe, left upper lobe and right lower lobe. Large plugs were removed. She breathes better . Plan Follow Pulm's recommendation, Chest percussion therapy Current Visit: No Qualifiers: Pneumonia type: due to unspecified organism Laterality: left Lung location: lower lobe of lung Qualified Code(s): J18.9 - Pneumonia, unspecified organism (2) Type 2 diabetes mellitus Status: Chronic Assessment and plan: Stable on current regime.Hemoglobin A1c noted at 5.0 Current Visit: No (3) Hypertension Status: Chronic Assessment and plan: stable Current Visit: No (4) Asthma Status: Chronic Assessment and plan: continue Pulm's plan Current Visit: No Qualifiers: Asthma severity: moderate persistent (5) Headache Status: Acute Assessment and plan: most likely due to Migraines. MRI was unremarkable. Continue with Imitrex prn and pain meds Current Visit: Yes (6) Sorethroat Status: Acute Assessment and plan: will get swab for strep -start chloroseptic spray Current Visit: Yes Hospitalist: Subjective Interval history: patient still having some headaches, she is now complaining of sorethroat. Exam - Constitutional Vitals: Period Temp Pulse Resp BP Sys/Bethea Pulse Ox Last 24 Hr 97.4 F-98.3 F 63-82 15-22 105-134/53-80 95-100 General appearance: no acute distress - Head Head exam: Present: normal inspection - Respiratory Respiratory exam: Present: clear to auscultation bilaterally - Cardiovascular Cardiovascular exam: Present: regular rate and rhythm - GI/Abdominal GI/Abdominal exam: Present: normal bowel sounds - Extremities Exam Extremities exam: Present: normal inspection - Neurological Exam Neurological exam: Present: alert, oriented X3 Results - Labs CBC & BMP: 06/26/17 05:36 06/26/17 05:36 Lab Results: I have reviewed the past 24 hour labs Specialty Discharge - Follow Up or Referrals
[2017-06-29] MEDS: ALBUTEROL/IPRATROPIUM 3 ML NEB RESP TX SCH ×4 (00:13→21:08)
[2017-06-29] MEDS: MORPHINE 2 MG/1 ML SYRINGE IV PRN (01:27)
[2017-06-29 05:36] LABS: Basophils % 0.1 % (0.0-0.8); Eosinophils # 0.1 10*3/uL (0.0-0.87); Eosinophils % 0.4 % (0.00-10.9); Hematocrit 33.3 VOL% (35.7-47.0); Hemoglobin 11.1 GM/DL (12.0-16.0); Immature Granulocytes % 4.7 %; Immature Granulocytes Absolute 1.32 #; Lymphocytes # 4.3 10*3/uL (1.4-4.0); Lymphocytes % 15.3 % (21.3-54.2); Mean Corpuscular HGB Conc 33.3 GM/DL (32-36); Mean Corpuscular Hemoglobin 27 PG (27-34); Mean Corpuscular Volume 79.9 FL (87-102); Mean Platelet Volume 8.9 FL (9.6-12.0); Monocytes # 1.8 10*3/uL (0.11-0.8); Monocytes % 6.3 % (1.7-12.7); Neutrophils # 20.7 10*3/uL (1.4-7.4); Neutrophils % 73.2 % (38.7-73.9); Platelet Count 351 T/CUMM (130-400); Red Blood Count 4.17 MC/CUMM (3.8-5.5); Red Cell Distribution Width 15.9 % (9.3-17.3); White Blood Count 28.3 T/CUMM (4-12)
[2017-06-29 06:05] LABS: Calcium 7.8 MG/DL (8.5-10.1); Osmolality,Calculated 266.1 MOS/KG (273-304); Potassium 3.5 MMOL/L (3.5-5.1)
[2017-06-29 06:16] LABS: Band Neutrophils 2 % (0-10); Burr Cells Slight; Giant Platelets Few; Hypochromasia 1+; Lymphocytes 12 % (20-55); Platelet Estimate Adequate; Segmented Neutrophils 75 % (50-85); Total Cells Counted 100
[2017-06-29] MEDS: DORNASE ALFA 2.5 MG/2.5 ML VIAL RESP TX SCH (07:42)
[2017-06-29] MEDS: INSULIN REGULAR 100 UNIT/ML SUBCUT SCH ×4 (08:49→21:28)
[2017-06-29] MEDS: SULFAMETHOX/TRIMETHOPRIM 800-160 MG TABLET PO SCH ×3 (08:50→21:28)
[2017-06-29] MEDS: LISINOPRIL/HCTZ 20-12.5 MG TABLET PO SCH (08:50)
[2017-06-29] MEDS: predniSONE 20 MG TABLET PO SCH (08:50)
[2017-06-29] MEDS: MONTELUKAST 10 MG TABLET PO SCH (08:51)
[2017-06-29] MEDS: NYSTATIN 500,000 UNIT/5 ML UDCUP SWISH/SWAL SCH ×4 (08:51→21:29)
[2017-06-29] MEDS: PANTOPRAZOLE 40 MG TABLET PO SCH ×2 (08:51→21:29)
[2017-06-29] MEDS: CETIRIZINE 10 MG TABLET PO SCH (08:51)
[2017-06-29] MEDS: ENOXAPARIN 40 MG/0.4 ML SYRINGE SUBCUT SCH (08:52)
[2017-06-29] MEDS: FLUTICASONE 50 MCG NASAL SPRAY 16 GM BOTTLE BOTH NARES SCH (08:54)
--- NOTE | 2017-06-29 10:29 | Hospitalist Progress Note ---
Assessment and Plan (1) Pneumonia Status: Acute Assessment and plan: History of recurrent left upper lung pneumonia which has been evaluated with fiberoptic bronchoscopy by Dr. Sameer Raya in May 2016 and in October 2016. Each time significant mucoid impaction with occlusion of the bronchi has been involved. All test for fungus and AFB have been negative. CXR showed a complete opacification of the left lower lobe suggested with associated volume loss. Visualized osseous and surrounding soft tissue structures appear grossly unchanged. She has had a Bronchoscopy which showed multiple areas of obstruction due to large inspissated mucous plugs. Some of the tissues were removed and they were very friable and broke up easily. Several specimens were sent for histology. Patient a repeat bronchoscope under anesthesia : The large forceps were used to remove much mucus and debris as possible in the left lower lobe, left upper lobe and right lower lobe. Large plugs were removed. She breathes better . Sputm culture grew stenotrophomonas maltophilia. Strep swab was negative. Plan Follow Pulm's recommendation, Chest percussion therapy continue with Bactrim and chloroseptic spray hopefully dc in am Current Visit: No Qualifiers: Pneumonia type: due to unspecified organism Laterality: left Lung location: lower lobe of lung Qualified Code(s): J18.9 - Pneumonia, unspecified organism (2) Type 2 diabetes mellitus Status: Chronic Assessment and plan: Stable on current regime.Hemoglobin A1c noted at 5.0 Current Visit: No (3) Hypertension Status: Chronic Assessment and plan: stable Current Visit: No (4) Asthma Status: Chronic Assessment and plan: continue Pulm's plan Current Visit: No Qualifiers: Asthma severity: moderate persistent (5) Headache Status: Acute Assessment and plan: most likely due to Migraines. MRI was unremarkable. Continue with Imitrex prn and pain meds Current Visit: Yes (6) Sorethroat Status: Acute Assessment and plan: Sputm culture grew stenotrophomonas maltophilia. Strep swab was negative. continue with Bactrim and chloroseptic spray Current Visit: Yes Hospitalist: Subjective Interval history: Patient still having some sorethroat though headache has improved. Exam - Constitutional Vitals: Period Temp Pulse Resp BP Sys/Bethea Pulse Ox Last 24 Hr 97.5 F-98.4 F 63-86 16-20 107-137/60-85 95-100 General appearance: no acute distress - Head Head exam: Present: normal inspection - Respiratory Respiratory exam: Present: clear to auscultation bilaterally - Cardiovascular Cardiovascular exam: Present: regular rate and rhythm - GI/Abdominal GI/Abdominal exam: Present: normal bowel sounds - Extremities Exam Extremities exam: Present: normal inspection - Neurological Exam Neurological exam: Present: alert, oriented X3 Results - Labs CBC & BMP: 06/29/17 04:53 06/29/17 04:53 Lab Results: I have reviewed the past 24 hour labs Specialty Discharge - Follow Up or Referrals
--- NOTE | 2017-06-29 11:05 | Pulmonology Progress Note ---
Pulmonary - PN: Subj Interval history: The patient is a 41-year-old black lady with chronic asthma that has severe mucoid impaction syndrome. She comes back in now with some coughing and shortness of breath and has a left upper lobe consolidation. She still has some left lower lobe infiltrate also. She has had infiltrates off and on for almost 10 years now. She has had severe mucoid impaction obstructing various bronchi. She did fairly well with the bronchoscope yesterday and we were able to remove a large amount of mucoid impaction. She feels better today and seems to be breathing a little better. She still has a sore throat but her sinus drainage is not as bad. Her cough and wheezing have improved. Overall she thinks she is doing a little better. Exam (Progress Note) - Constitutional Vitals: Period Temp Pulse Resp BP Sys/Bethea Pulse Ox Last 24 Hr 97.5 F-98.4 F 63-86 16-20 107-137/60-85 95-100 Exam: General appearance: no acute distress, over weight, she is breathing comfortably today. She is sitting up and looks like she feels better. - Head Head exam: Present: normal inspection, normocephalic - Eye Eye exam: Present: EOMI. Absent: scleral icterus Pupils: Present: DAX - ENT ENT exam: Present: She does have dry mucous membranes and some sinus stuffiness. - Neck Neck exam: Present: normal inspection. Absent: lymphadenopathy, thyromegaly - Respiratory Respiratory exam: Present: She has fair breath sounds bilaterally and her lungs sound clearer. She has minimal rhonchi but is moving air well. - Cardiovascular Cardiovascular exam: Present: regular rate and rhythm. Absent: gallop, systolic murmur - GI/Abdominal GI/Abdominal exam: Present: normal bowel sounds, soft. Absent: organomegaly, tenderness - Extremities Exam Extremities exam: Absent: calf tenderness, edema - Neurological Exam Neurological exam: Present: alert, oriented X3, CN II-XII intact - Psychiatric Psychiatric exam: Present: normal affect, normal mood - Skin Skin exam: Present: warm, dry Results - Labs CBC & BMP: 06/29/17 04:53 06/29/17 04:53 Assessment and Plan (1) Asthma Status: Chronic Assessment and plan: Patient has chronic asthma and seems to be doing fairly well with her breathing now. She is having less cough and less wheezing. She can probably go home tomorrow. Current Visit: No Qualifiers: Asthma severity: moderate persistent (2) Type 2 diabetes mellitus Status: Chronic Assessment and plan: Her glucose is 71 today. Current Visit: No (3) Hypertension Status: Chronic Assessment and plan: Her blood pressure has been stable. Current Visit: No (4) Mucoid impaction of bronchi Status: Acute Assessment and plan: The patient has multiple segments of mucoid impaction. We were able to remove a large amount of impaction. Her chest x-ray is better yesterday. Her breathing seems to be better. Overall she looks like she is breathing much better. Current Visit: No (5) Pneumonia Status: Acute Assessment and plan: She does have several segments of atelectatic lung because of mucus plugging. Her cultures are noted. Will leave her on oral Bactrim. We will add Mycostatin for her throat and also try some sinus medicine. She still has a sore throat but is better. She can go home tomorrow from my standpoint Current Visit: Yes Qualifiers: Pneumonia type: due to unspecified organism Specialty Discharge - Follow Up or Referrals
--- NOTE | 2017-06-29 12:54 | Infectious Disease Progress ---
Assessment and Plan (1) Pneumonia Status: Acute Assessment and plan: Recommendations: Agree with social reaction to oral relief however increased dose to 2 double strength tablets 3 times a day to better treat the pneumonia. Can probably treat for total of 10 days, so 7 more days to go. Patient has persistent leukocytosis but overall looks much better. The prednisone may be contributing. Current Visit: Yes Qualifiers: Pneumonia type: due to unspecified organism (2) Asthma Status: Chronic Current Visit: No Qualifiers: Asthma severity: moderate persistent (3) Hypertension Status: Chronic Current Visit: No (4) Type 2 diabetes mellitus Status: Chronic Current Visit: No Infectious Disease - PN: Subj Interval history: Patient generally doing better, still coughing with sputum production but much less pleuritic chest pain on the left. She has not had fever. Was switched to oral Bactrim over the weekend. Main complaint today soreness in her throat and she thinks this is related to the bronchoscopy she had last week. Infectious Disease Exam (PN) - Constitutional Vitals: Temp Pulse Resp BP Pulse Ox 97.1 F L 79 20 126/71 98 06/29/17 11:38 06/29/17 11:38 06/29/17 11:38 06/29/17 11:38 06/29/17 11:38 General appearance: no acute distress Exam: General appearance: no acute distress - Eye Eye exam: Present: EOMI. no icterus Pupils: Present: DAX - ENT ENT exam: Shallow ulcer on soft palate on the right side, erythema and soft palate on the left side, no pharyngeal exudates or other oral lesions - Respiratory Respiratory exam: Occasional rhonchi - Cardiovascular Cardiovascular exam: regular rate and rhythm, no murmurs - GI/Abdominal GI/Abdominal exam: normal bowel sounds, soft, non-tender, no organomegaly or mass - Extremities Exam Extremities exam: no edema - Skin Skin exam: no rash Results - Labs CBC & BMP: 06/29/17 04:53 06/29/17 04:53 Lab Results: I have reviewed the past 24 hour labs Specialty Discharge - Follow Up or Referrals
[2017-06-29] MEDS: BUDESONIDE/FORMOTEROL 160-4.5 INHALER 6 GM INH SCH (21:41)
[2017-06-30] MEDS: ALBUTEROL/IPRATROPIUM 3 ML NEB RESP TX SCH ×2 (00:22→07:06)
[2017-06-30] MEDS: MORPHINE 2 MG/1 ML SYRINGE IV PRN (02:56)
[2017-06-30 05:36] LABS: Basophils % 0.2 % (0.0-0.8); Eosinophils # 0.2 10*3/uL (0.0-0.87); Eosinophils % 0.7 % (0.00-10.9); Hematocrit 33.4 VOL% (35.7-47.0); Hemoglobin 11.2 GM/DL (12.0-16.0); Immature Granulocytes % 3.1 %; Immature Granulocytes Absolute 0.79 #; Lymphocytes # 5.3 10*3/uL (1.4-4.0); Lymphocytes % 20.7 % (21.3-54.2); Mean Corpuscular HGB Conc 33.5 GM/DL (32-36); Mean Corpuscular Hemoglobin 27 PG (27-34); Mean Corpuscular Volume 80.9 FL (87-102); Mean Platelet Volume 8.7 FL (9.6-12.0); Monocytes # 1.6 10*3/uL (0.11-0.8); Monocytes % 6.2 % (1.7-12.7); Neutrophils # 17.6 10*3/uL (1.4-7.4); Neutrophils % 69.1 % (38.7-73.9); Platelet Count 350 T/CUMM (130-400); Red Blood Count 4.13 MC/CUMM (3.8-5.5); Red Cell Distribution Width 16.2 % (9.3-17.3); White Blood Count 25.5 T/CUMM (4-12)
[2017-06-30 06:07] LABS: Hypochromasia 1+; Lymphocytes 25 % (20-55); Ovalocytes Slight; Platelet Estimate Adequate; Segmented Neutrophils 68 % (50-85); Total Cells Counted 100
[2017-06-30 06:08] LABS: Microcytosis Slight
[2017-06-30 06:10] LABS: Osmolality,Calculated 269.8 MOS/KG (273-304)
[2017-06-30 06:16] LABS: Magnesium 2.7 MG/DL (1.8-2.4); Phosphorous 3.4 MG/DL (2.5-4.9)
[2017-06-30 06:17] LABS: Albumin 2.8 G/DL (3.4-5.0); Bilirubin,Total 0.6 MG/DL (0.2-1.0); Calcium 7.9 MG/DL (8.5-10.1); Osmolality,Calculated 269.8 MOS/KG (273-304); Potassium 4.2 MMOL/L (3.5-5.1); Total Protein 5.8 G/DL (6.4-8.3)
[2017-06-30] MEDS: INSULIN REGULAR 100 UNIT/ML SUBCUT SCH ×2 (08:03→12:13)
--- NOTE | 2017-06-30 08:34 | Pulmonology Progress Note ---
Pulmonary - PN: Subj Interval history: The patient is a 41-year-old black lady with chronic asthma that has severe mucoid impaction syndrome. She comes back in now with some coughing and shortness of breath and has a left upper lobe consolidation. She still has some left lower lobe infiltrate also. She has had infiltrates off and on for almost 10 years now. She has had severe mucoid impaction obstructing various bronchi. She did fairly well with the bronchoscope and her airways were opened up fairly well. She has done well for the past few days. She does have a sore throat but is getting better. She is walking around some now. Her shortness of breath is much better. Exam (Progress Note) - Constitutional Vitals: Period Temp Pulse Resp BP Sys/Bethea Pulse Ox Last 24 Hr 97.1 F-98.3 F 74-96 15-20 109-132/64-77 95-99 Exam: General appearance: no acute distress, over weight, she is breathing comfortably today. She is sitting up and looks like she feels better. - Head Head exam: Present: normal inspection, normocephalic - Eye Eye exam: Present: EOMI. Absent: scleral icterus Pupils: Present: DAX - ENT ENT exam: Present: She does have dry mucous membranes and some sinus stuffiness. - Neck Neck exam: Present: normal inspection. Absent: lymphadenopathy, thyromegaly - Respiratory Respiratory exam: Present: She has fair breath sounds bilaterally and her lungs sound clearer. She is not wheezing now. Her lungs sound much better. - Cardiovascular Cardiovascular exam: Present: regular rate and rhythm. Absent: gallop, systolic murmur - GI/Abdominal GI/Abdominal exam: Present: normal bowel sounds, soft. Absent: organomegaly, tenderness - Extremities Exam Extremities exam: Absent: calf tenderness, edema - Neurological Exam Neurological exam: Present: alert, oriented X3, CN II-XII intact - Psychiatric Psychiatric exam: Present: normal affect, normal mood - Skin Skin exam: Present: warm, dry Results - Labs CBC & BMP: 06/30/17 05:15 06/30/17 05:15 Assessment and Plan (1) Asthma Status: Chronic Assessment and plan: Patient has chronic asthma and seems to be doing fairly well with her breathing now. She is having less cough and less wheezing. She can go home at any time. Current Visit: No Qualifiers: Asthma severity: moderate persistent (2) Type 2 diabetes mellitus Status: Chronic Assessment and plan: Her glucose is 72 today. Current Visit: No (3) Hypertension Status: Chronic Assessment and plan: Her blood pressure has been stable. Current Visit: No (4) Mucoid impaction of bronchi Status: Acute Assessment and plan: The patient has multiple segments of mucoid impaction. We were able to remove a large amount of impaction. Her chest x-ray is better. Her breathing is much better and she can probably go home. Current Visit: No (5) Pneumonia Status: Acute Assessment and plan: She does have several segments of atelectatic lung because of mucus plugging. Her cultures are noted. Will leave her on oral Bactrim. We will add Mycostatin for her throat and also try some sinus medicine. She still has a sore throat but is better. She can go home tomorrow from my standpoint Current Visit: Yes Qualifiers: Pneumonia type: due to unspecified organism Specialty Discharge - Follow Up or Referrals
--- NOTE | 2017-06-30 08:59 | Discharge Summary ---
<Tony Fulton - Last Filed: 06/30/17 08:52> Hospital Course - Hospital Course Hospital Course: This is a very pleasant 41-year-old female that presented to the Non-Urgent/ [facility] at [facility] on the morning of May for the evaluation of shortness of breath and right-sided flank pain. The patient has a medical history significant for hypertension, asthma, non- insulin-dependent diabetes mellitus, dyslipidemia, bronchitis, recurrent pneumonia, and chronic sinusitis. Patient has a surgical history significant for the removal of an ovarian cyst in 1993. The patient reported the onset of symptoms on the day prior to presentation. She reported that she experienced pain when attempting to take a deep breath and had generalized aches and pains. In addition, the patient reported that she had been febrile at home prior to presentation with a temperature reported at 100.2. Labs were remarkable for a white blood cell count 31.2, sodium 135, potassium 3.1, and glucose 108. Chest x-ray reported left lung infiltrates. The patient was subsequently admitted to the hospitalist service for continuation of care. Empiric antibiotic coverage, inhaled bronchodilators, and intravenous corticosteroids were initiated at the time of admission. Due to the complexity of the patient's pulmonary history, a pulmonary consultation was requested. The patient was seen and evaluated by pulmonology. On June 23 and June 26, 2017, Patient underwent fiber scopic bronchoscopy which showed multiple areas of obstruction due to large inspissated mucous plugs. Some of the tissues were removed and they were very friable and broke up easily. Several specimens were sent for histology. She later had a repeat bronchoscopy this time under anaesthesia and large forceps were used to remove much mucus and debris as possible in the left lower lobe, left upper lobe and right lower lobe. Large plugs were removed. Microbiology reports reported multiple microorganisms. Sputum culture was significant for Stenotrophomonas maltophilia, bronchial washings and nasal swab were significant for methicillin resistant Staphylococcus aureus. The patient was placed in contact isolation. Due to the recurrent bouts of community acquired pneumonia and identification of multiple infectious microorganisms, a infectious disease consultation was requested. The patient was seen and evaluated and recommendations were given. The patient's condition slowly improved.Her predisone was thought to be contributing to her leukocytosis. She complained of a headache which was most likely due to Migraines. MRI was unremarkable. We will Continue with Imitrex prn and pain meds.Strep swab was negative. The patient's condition is stable. She has not experienced any significant overnight events. 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 The patient will be discharged with instructions to continue Bactrim DS 2 tablets tid by mouth for the next 7 days. Diagnosis - Discharge Diagnosis (1) Hypokalemia Status: Acute (2) Pneumonia Status: Acute (3) Type 2 diabetes mellitus Status: Chronic Specialty Discharge - Follow Up or Referrals Discharge Plan - Discharge Data Disposition: Disch To Home/Self Care - Discharge Medications New Acetaminophen Tab [Tylenol Tab] 650 mg PO Q4H PRN tablet PRN Reason: Fever, Headache, Mild Pain Albuterol Neb [Proventil Neb] 2.5 mg RESP TX RT Q4H PRN #7 PRN Reason: Shortness Of Breath/Wheezing Butalbital/Acet/Caff 50-325-40 [Fioricet 50-325-40 mg Tablet] 2 tablet PO Q4H PRN #20 tablet PRN Reason: Headache Cetirizine Tab [ZyrTEC Tab] 10 mg PO DAILY #14 tablet Docusate Sodium Cap [Colace Cap] 100 mg PO BID PRN #30 capsule PRN Reason: Constipation Fluticasone 50 Mcg Nasal [place] [Flonase Nasal [place]] 1 spray BOTH NARES DAILY #1 spray guaiFENesin ER TAB [Mucinex] 600 mg PO BID #60 tablet HYDROcodone/ACETAMIN 5-325 [[place] 5-325] 1 tablet PO Q4H PRN #20 tablet PRN Reason: Pain Mild (1-3) Pantoprazole Tab [Protonix Tab] 40 mg PO BID #60 tablet Phenol 1.4% Throat [place] [Chloraseptic [place]] 5 spray PO Q2H PRN #1 bottle PRN Reason: Sore Throat predniSONE TAB [PredniSONE] See Taper PO DAILY #20 tablet Sulfameth/Trimeth 800-160 Tab [Bactrim DS Tab] 2 tablet PO TID #30 tablet Budesonide/Formoterol 160-4.5 [Symbicort 160-4.5] 2 puff INH BID #7 inhaler Montelukast Tab [Singulair Tab] 10 mg PO DAILY #30 tablet Continue Lisinopril/Hydrochlorothiazide [Lisinopril-Hctz 20-12.5 mg Tab] 1 each PO DAILY Albuterol Neb [Proventil Neb] 0.63 mg RESP TX RT Q4H PRN #120 nebulization solution PRN Reason: Shortness Of Breath/Wheezing No Action Metformin HCl 500 mg PO BID W/MEALS - Follow Up or Referral - Forms/Instructions Instructions: Asthma (GEN), Viral Pneumonia (GEN) Exam - Constitutional Vitals: Period Temp Pulse Resp BP Sys/Bethea Pulse Ox Last 24 Hr 97.2 F-98.3 F 74-106 15-20 109-132/64-81 95-99 Discharge Results Procedures and tests throughout hospitalization: Pending Orders 06/23/17 AFB Culture/Smears Routine Fungal Culture w/ Prep Routine 06/23/17 08:06 Cytology Request Routine Labs on day of discharge: Labs from last 24 hours 06/30/17 06/30/17 06/30/17 11:34 07:20 05:15 WBC RBC Hgb Hct MCV MCH MCHC RDW Plt Count MPV Neut % (Auto) Lymph % (Auto) [place] % (Auto) Eos % (Auto) Baso % (Auto) Neut # (Auto) Lymph # (Auto) [place] # (Auto) Eos # (Auto) Baso # (Auto) Total Counted Immature Gran % Nucleated RBC % Immature Gran # Segmented Neutrophils Lymphocytes Monocytes Nucleated RBCs # Platelet Estimate Immature Plt Fraction Hypochromasia Microcytosis Ovalocytes Morphology Comment Sodium 137 Potassium 4.2 Chloride 100 Carbon Dioxide 30 Anion Gap 11.2 BUN 7 Creatinine 0.60 GFR Calculation 161 BUN/Creatinine Ratio 11.00 Glucose 72 L POC Glucose 82 88 Calculated Osmolality 269.8 L Calcium 7.9 L Phosphorus Magnesium Total Bilirubin 0.60 AST 12 ALT 46 Alkaline Phosphatase 86 Total Protein 5.8 L Albumin 2.8 L Globulin 3.0 Albumin/Globulin Ratio 0.9 L 06/30/17 06/30/17 06/30/17 05:15 05:15 05:15 WBC 25.5 H RBC 4.13 Hgb 11.2 L Hct 33.4 L MCV 80.9 L MCH 27 MCHC 33.5 RDW 16.2 Plt Count 350 MPV 8.7 L Neut % (Auto) 69.1 Lymph % (Auto) 20.7 L [place] % (Auto) 6.2 Eos % (Auto) 0.7 Baso % (Auto) 0.2 Neut # (Auto) 17.6 H Lymph # (Auto) 5.3 H [place] # (Auto) 1.6 H Eos # (Auto) 0.2 Baso # (Auto) 0.0 Total Counted 100 Immature Gran % 3.1 Nucleated RBC % 0.0 Immature Gran # 0.79 Segmented Neutrophils 68 Lymphocytes 25 Monocytes 7 Nucleated RBCs # 0.00 Platelet Estimate Adequate Immature Plt Fraction 0.0 Hypochromasia 1+ Microcytosis Slight Ovalocytes Slight Morphology Comment Sodium 137 Potassium 4.0 Chloride 100 Carbon Dioxide 29 Anion Gap 12.0 BUN 8 Creatinine 0.60 GFR Calculation 161 BUN/Creatinine Ratio 13.00 Glucose 72 L POC Glucose Calculated Osmolality 269.8 L Calcium 8.0 L Phosphorus 3.4 Magnesium 2.7 H Total Bilirubin AST ALT Alkaline Phosphatase Total Protein Albumin Globulin Albumin/Globulin Ratio 06/29/17 06/29/17 20:40 15:05 WBC RBC Hgb Hct MCV MCH MCHC RDW Plt Count MPV Neut % (Auto) Lymph % (Auto) [place] % (Auto) Eos % (Auto) Baso % (Auto) Neut # (Auto) Lymph # (Auto) [place] # (Auto) Eos # (Auto) Baso # (Auto) Total Counted Immature Gran % Nucleated RBC % Immature Gran # Segmented Neutrophils Lymphocytes Monocytes Nucleated RBCs # Platelet Estimate Immature Plt Fraction Hypochromasia Microcytosis Ovalocytes Morphology Comment Sodium Potassium Chloride Carbon Dioxide Anion Gap BUN Creatinine GFR Calculation BUN/Creatinine Ratio Glucose POC Glucose 123 H 109 H Calculated Osmolality Calcium Phosphorus Magnesium Total Bilirubin AST ALT Alkaline Phosphatase Total Protein Albumin Globulin Albumin/Globulin Ratio Preliminary micro results at discharge 06/23/17 Unknown Mycobacterial Culture - Preliminary Bronchial Washings No AFB isolated at 1 week DS: Provider Date of admission: 06/19/17 12:29 Primary care physician: . No PCP Attending physician on admission: Frederic Squires MD Consults: 06/19/17 13:32 Consult to Physician [CONS] Routine Comment: pleurisy, possible TB infection Consulting Provider: Brian Raya When should Consulting Provider be notified: Now Person Notified: [email or web address] Date Notified: 06/22/17 Time Notified: 09:27 Consult Notification Comment: Dr. García made aware at 1616 06/19/17 14:35 Consult to Physician [CONS] Routine Comment: Consulting Provider: Natalie Braga Consulting Provider Notified: Yes Person Notified: Dr. Brambila Date Notified: 06/19/17 Time Notified: 14:38 Consult Notification Comment: Shawn Sosa stated she spoke with Dr. Brambila. 06/20/17 08:20 Consult to Pulmonary Rehabilitation [CONS] Routine Reason for Pulmonary Rehabilitation: COPD 06/24/17 07:58 Consult to Anesthesiology [CONS] Routine Consulting Provider: Reason for Anesthesiology: Other Consult Comment: pt needs anesthsia for bronch on thursday06/25/17 08:51 Consult to Anesthesiology [CONS] Routine Consulting Provider: Reason for Anesthesiology: Other Consult Comment: pt needs anesthesia for bronch on thursday Discharging clinician: Tony Fulton CNP <Carina Rocha - Last Filed: 06/30/17 12:38> Hospital Course - Time spent with patient Time with patient DS: Greater than 30 minutes (Time sepent greater than 40mins) Diagnosis - Discharge Diagnosis (1) Pneumonia Status: Acute (2) Type 2 diabetes mellitus Status: Chronic (3) Hypertension Status: Chronic (4) Asthma Status: Chronic (5) Headache Status: Acute (6) Sorethroat Status: Acute Discharge Plan - Discharge Data Condition at Discharge: Stable Discharge Diet: advance to your usual diet Activity: resume usual activities as tolerated - Forms/Instructions Additional Discharge Instructions: Follow with PCP in 1week, Follow with Pulm as scheduled Exam - Constitutional General appearance: no acute distress - Head Head exam: Present: normal inspection - Neck Neck exam: Present: normal inspection - Respiratory Respiratory exam: Present: clear to auscultation bilaterally - Cardiovascular Cardiovascular exam: Present: regular rate and rhythm - GI/Abdominal GI/Abdominal exam: Present: normal bowel sounds - Extremities Exam Extremities exam: Present: normal inspection - Neurological Exam Neurological exam: Present: alert, oriented X3
[2017-06-30] MEDS: NYSTATIN 500,000 UNIT/5 ML UDCUP SWISH/SWAL SCH ×2 (10:22→14:04)
[2017-06-30] MEDS: predniSONE 20 MG TABLET PO SCH (10:24)
[2017-06-30] MEDS: LISINOPRIL/HCTZ 20-12.5 MG TABLET PO SCH (10:24)
[2017-06-30] MEDS: ENOXAPARIN 40 MG/0.4 ML SYRINGE SUBCUT SCH (10:25)
[2017-06-30] MEDS: CETIRIZINE 10 MG TABLET PO SCH (10:25)
[2017-06-30] MEDS: SULFAMETHOX/TRIMETHOPRIM 800-160 MG TABLET PO SCH (10:25)
[2017-06-30] MEDS: MONTELUKAST 10 MG TABLET PO SCH (10:25)
[2017-06-30] MEDS: PANTOPRAZOLE 40 MG TABLET PO SCH (10:25)
[2017-06-30] MEDS: BUDESONIDE/FORMOTEROL 160-4.5 INHALER 6 GM INH SCH (10:28)
[2017-06-30] MEDS: FLUTICASONE 50 MCG NASAL SPRAY 16 GM BOTTLE BOTH NARES SCH (10:28)
[2017-06-30 11:57] VITALS: BP 132/81
== END 2017-06-30 15:00 | disposition home or self-care (01) | DRG 202 ==
LOC: N.ED 10:24 → N.EDINP 12:29 → SUATTDRO 12:29 → N.EDINP 13:11 → N.5E 13:22 → N.ICU 15:02 → N.2E 20:10
PROVIDERS: ADMIT Internal Medicine Infectious Disease; ATTEND Internal Medicine

== ENCOUNTER 2017-11-13 16:41 | Inpatient (IN) ==
[2017-11-13] MEDS ORDERED: cefTRIAXone 1,000 MG in SODIUM CHLORIDE 0.9% 100 ML IV STA (17:00)
[2017-11-13] MEDS ORDERED: methylPREDNISolone SOD SUC 125 MG/2 ML VIAL IV STA (17:00)
[2017-11-13] MEDS ORDERED: ALBUTEROL/IPRATROPIUM 3 ML NEB RESP TX STA ×2 (17:00→18:03)
[2017-11-13] MEDS ORDERED: ONDANSETRON 4 MG/2 ML VIAL IV STA (17:02)
[2017-11-13] MEDS ORDERED: KETOROLAC 30 MG/1 ML VIAL IV STA (17:02)
[2017-11-13] MEDS ORDERED: KETOROLAC 30 MG/1 ML VIAL ONE (17:25)
[2017-11-13] MEDS ORDERED: ONDANSETRON 4 MG/2 ML VIAL ONE (17:25)
[2017-11-13] MEDS ORDERED: methylPREDNISolone SOD SUC 125 MG/2 ML VIAL ONE (17:25)
[2017-11-13] MEDS ORDERED: cefTRIAXone 1,000 MG VIAL ONE (17:25)
[2017-11-13 17:27] LABS: Basophils % 0.2 % (0.0-0.8); Hematocrit 38.4 VOL% (35.7-47.0); Hemoglobin 12.4 GM/DL (12.0-16.0); Immature Granulocytes % 0.5 %; Immature Granulocytes Absolute 0.11 #; Lymphocytes # 1.9 10*3/uL (1.4-4.0); Lymphocytes % 9.1 % (21.3-54.2); Mean Corpuscular HGB Conc 32.3 GM/DL (32-36); Mean Corpuscular Hemoglobin 27 PG (27-34); Mean Corpuscular Volume 82.1 FL (87-102); Mean Platelet Volume 8.9 FL (9.6-12.0); Monocytes # 1.8 10*3/uL (0.11-0.8); Monocytes % 8.3 % (1.7-12.7); Neutrophils # 17.3 10*3/uL (1.4-7.4); Neutrophils % 81.9 % (38.7-73.9); Platelet Count 370 T/CUMM (130-400); Red Blood Count 4.68 MC/CUMM (3.8-5.5); Red Cell Distribution Width 14.6 % (9.3-17.3); White Blood Count 21.2 T/CUMM (4-12)
[2017-11-13 17:58] LABS: Albumin 3.8 G/DL (3.4-5.0); Bilirubin,Total 0.6 MG/DL (0.2-1.0); Calcium 9.1 MG/DL (8.5-10.1); Osmolality,Calculated 274.5 MOS/KG (273-304); Potassium 2.8 MMOL/L (3.5-5.1); Total Protein 8.2 G/DL (6.4-8.3)
[2017-11-13] MEDS ORDERED: AZITHROMYCIN INJ 500 MG in SODIUM CHLORIDE 0.9% 250 ML IV STA (18:03)
[2017-11-13] MEDS ORDERED: AZITHROMYCIN 500 MG VIAL IV ONE (18:13)
[2017-11-13] MEDS ORDERED: GLUCAGON 1 MG VIAL IM PRN (18:37)
[2017-11-13] MEDS ORDERED: DEXTROSE 50% 25 GM/50 ML VIAL IV PRN (18:37)
[2017-11-13 18:42] LABS: Band Neutrophils 4 % (0-10); Lymphocytes 6 % (20-55); Platelet Estimate Normal; Segmented Neutrophils 81 % (50-85); Total Cells Counted 100
[2017-11-13 18:53] LABS: Lactic Acid 3.2 MMOL/L (0.4-2.0)
[2017-11-13] MEDS ORDERED: POTASSIUM CHLORIDE RIDER 10 MEQ in PREMIX 1 EACH IV SCH (19:00)
[2017-11-13] MEDS ORDERED: SODIUM CHLORIDE 0.9% 500 ML IV SCH ×2 (21:00)
[2017-11-13] MEDS: ALBUTEROL/IPRATROPIUM 3 ML NEB RESP TX SCH (21:06)
[2017-11-13] MEDS ORDERED: ALBUTEROL 2.5 MG/3 ML NEB RESP TX PRN (21:55)
[2017-11-13] MEDS ORDERED: NON-FORMULARY MEDICATION (Albuterol Inhaler 2 PUFF) INH PRN (21:55)
[2017-11-13] MEDS ORDERED: tiZANidine 4 MG TABLET PO PRN (21:55)
[2017-11-14] MEDS: ALBUTEROL/IPRATROPIUM 3 ML NEB RESP TX SCH ×4 (00:40→20:10)
[2017-11-14] MEDS: INSULIN LISPRO 100 UNIT/ML SUBCUT SCH ×5 (01:17→21:21)
[2017-11-14] MEDS: ONDANSETRON 4 MG/2 ML VIAL IV PRN ×2 (01:18→21:18)
[2017-11-14] MEDS: POTASSIUM CHLORIDE 20 MEQ TABLET PO PRN ×4 (02:30→10:47)
[2017-11-14 04:21] LABS: Basophils % 0.1 % (0.0-0.8); Hematocrit 32.7 VOL% (35.7-47.0); Hemoglobin 10.6 GM/DL (12.0-16.0); Immature Granulocytes % 0.5 %; Lymphocytes # 1.2 10*3/uL (1.4-4.0); Lymphocytes % 5.8 % (21.3-54.2); Mean Corpuscular HGB Conc 32.4 GM/DL (32-36); Mean Corpuscular Hemoglobin 26 PG (27-34); Mean Corpuscular Volume 81.1 FL (87-102); Monocytes # 0.8 10*3/uL (0.11-0.8); Monocytes % 4.2 % (1.7-12.7); Neutrophils # 17.7 10*3/uL (1.4-7.4); Neutrophils % 89.4 % (38.7-73.9); Platelet Count 336 T/CUMM (130-400); Red Blood Count 4.03 MC/CUMM (3.8-5.5); Red Cell Distribution Width 14.6 % (9.3-17.3); White Blood Count 19.7 T/CUMM (4-12)
[2017-11-14 04:51] LABS: Osmolality,Calculated 277.5 MOS/KG (273-304); Potassium 3.5 MMOL/L (3.5-5.1)
[2017-11-14] MEDS: LISINOPRIL/HCTZ 20-12.5 MG TABLET PO SCH (10:47)
[2017-11-14] MEDS: CETIRIZINE 10 MG TABLET PO SCH (10:48)
[2017-11-14] MEDS: ACETAMINOPHEN 325 MG TABLET PO PRN (13:51)
[2017-11-14] MEDS ORDERED: AZITHROMYCIN INJ 500 MG in SODIUM CHLORIDE 0.9% 250 ML IV SCH (18:00)
[2017-11-14] MEDS: BENZONATATE 100 MG CAPSULE PO SCH ×2 (18:28→21:18)
[2017-11-14] MEDS: cefTRIAXone 1,000 MG in SYRINGE 1 EACH IV SCH (18:34)
[2017-11-15] MEDS: ALBUTEROL/IPRATROPIUM 3 ML NEB RESP TX SCH ×4 (02:32→19:38)
[2017-11-15] MEDS: ONDANSETRON 4 MG/2 ML VIAL IV PRN (05:00)
[2017-11-15] MEDS: KETOROLAC 15 MG/1 ML VIAL IM PRN ×2 (05:44→14:56)
[2017-11-15 07:08] LABS: Basophils # 0.1 10*3/uL (0.0-0.2); Basophils % 0.3 % (0.0-0.8); Eosinophils # 0.1 10*3/uL (0.0-0.87); Eosinophils % 0.6 % (0.00-10.9); Hemoglobin 10.5 GM/DL (12.0-16.0); Immature Granulocytes % 0.5 %; Immature Granulocytes Absolute 0.08 #; Lymphocytes # 3.1 10*3/uL (1.4-4.0); Lymphocytes % 17.8 % (21.3-54.2); Mean Corpuscular HGB Conc 32.8 GM/DL (32-36); Mean Corpuscular Hemoglobin 27 PG (27-34); Mean Corpuscular Volume 80.8 FL (87-102); Mean Platelet Volume 9.2 FL (9.6-12.0); Monocytes # 1.3 10*3/uL (0.11-0.8); Monocytes % 7.1 % (1.7-12.7); Neutrophils % 73.7 % (38.7-73.9); Platelet Count 368 T/CUMM (130-400); Red Blood Count 3.96 MC/CUMM (3.8-5.5); Red Cell Distribution Width 14.8 % (9.3-17.3); White Blood Count 17.6 T/CUMM (4-12)
[2017-11-15 07:32] LABS: Calcium 8.4 MG/DL (8.5-10.1); Osmolality,Calculated 282.8 MOS/KG (273-304); Potassium 3.6 MMOL/L (3.5-5.1)
[2017-11-15] MEDS: LISINOPRIL/HCTZ 20-12.5 MG TABLET PO SCH (09:06)
[2017-11-15] MEDS: CETIRIZINE 10 MG TABLET PO SCH (09:07)
[2017-11-15] MEDS: BENZONATATE 100 MG CAPSULE PO SCH ×3 (09:07→21:25)
[2017-11-15] MEDS: INSULIN LISPRO 100 UNIT/ML SUBCUT SCH ×4 (09:07→21:27)
[2017-11-15] MEDS: ACETAMINOPHEN 325 MG TABLET PO PRN ×2 (16:54→19:10)
[2017-11-15] MEDS ORDERED: diphenhydrAMINE CAP 25 MG CAPSULE PO PRN (17:54)
[2017-11-15] MEDS: cefTRIAXone 1,000 MG in SYRINGE 1 EACH IV SCH (18:46)
[2017-11-16] MEDS: ALBUTEROL/IPRATROPIUM 3 ML NEB RESP TX SCH ×4 (00:24→20:25)
[2017-11-16] MEDS: ACETAMINOPHEN 325 MG TABLET PO PRN ×2 (02:03→13:09)
[2017-11-16 05:26] LABS: Basophils % 0.3 % (0.0-0.8); Eosinophils # 0.3 10*3/uL (0.0-0.87); Eosinophils % 2.6 % (0.00-10.9); Hematocrit 32.6 VOL% (35.7-47.0); Immature Granulocytes % 0.5 %; Immature Granulocytes Absolute 0.07 #; Lymphocytes # 1.2 10*3/uL (1.4-4.0); Lymphocytes % 9.3 % (21.3-54.2); Mean Corpuscular HGB Conc 33.7 GM/DL (32-36); Mean Corpuscular Hemoglobin 27 PG (27-34); Mean Corpuscular Volume 78.9 FL (87-102); Mean Platelet Volume 9.4 FL (9.6-12.0); Monocytes # 0.7 10*3/uL (0.11-0.8); Monocytes % 5.6 % (1.7-12.7); Neutrophils # 10.6 10*3/uL (1.4-7.4); Neutrophils % 81.7 % (38.7-73.9); Platelet Count 379 T/CUMM (130-400); Red Blood Count 4.13 MC/CUMM (3.8-5.5); Red Cell Distribution Width 14.6 % (9.3-17.3)
[2017-11-16 06:03] LABS: Calcium 8.1 MG/DL (8.5-10.1); Osmolality,Calculated 271.7 MOS/KG (273-304); Potassium 3.4 MMOL/L (3.5-5.1)
[2017-11-16] MEDS: INSULIN LISPRO 100 UNIT/ML SUBCUT SCH ×4 (09:17→20:59)
[2017-11-16] MEDS: LISINOPRIL/HCTZ 20-12.5 MG TABLET PO SCH (09:19)
[2017-11-16] MEDS: BENZONATATE 100 MG CAPSULE PO SCH ×3 (09:20→20:23)
[2017-11-16] MEDS: CETIRIZINE 10 MG TABLET PO SCH (09:20)
[2017-11-16] MEDS: POTASSIUM CHLORIDE 20 MEQ TABLET PO PRN ×3 (11:16→16:56)
[2017-11-16] MEDS ORDERED: VANCOMYCIN INJ 1,000 MG in SODIUM CHLORIDE 0.9% 250 ML IV SCH (13:30)
[2017-11-16] MEDS: PIPERACILLIN/TAZOBACTAM 3,375 MG in SODIUM CHLORIDE 0.9% 100 ML IV SCH ×2 (14:23→22:47)
[2017-11-16 17:22] LABS: Apearance,Urine CLEAR (Clear); Bilirubin,Urine Negative (Negative); Blood, Urine Small mg/dL (Negative); Glucose,Urine (UA) Negative (Negative); Ketones,Urine Negative (Negative); Mucus,Urine Occasional /LPF (Occasional); Nitrite,Urine Negative (Negative); Protein,Urine Negative; RBC,Urine 4 /HPF (0-4); Urine Color Yellow (Yellow); Urine Specific Gravity 1.013 (1.001-1.035); Urine Urobilinogen < 2.0 EU/DL (0.2-1.0); WBC,Urine 1 /HPF (0-6)
[2017-11-16] MEDS: VANCOMYCIN INJ 1,500 MG in SODIUM CHLORIDE 0.9% 500 ML IV SCH (18:29)
[2017-11-16] MEDS: KETOROLAC 15 MG/1 ML VIAL IM PRN (20:19)
[2017-11-17] MEDS: ALBUTEROL/IPRATROPIUM 3 ML NEB RESP TX SCH ×4 (01:55→19:20)
[2017-11-17] MEDS: ACETAMINOPHEN 325 MG TABLET PO PRN ×2 (02:41→16:11)
[2017-11-17] MEDS: ONDANSETRON 4 MG/2 ML VIAL IV PRN (02:46)
[2017-11-17] MEDS: diphenhydrAMINE CAP 50 MG CAPSULE PO PRN ×2 (02:50→22:14)
[2017-11-17] MEDS: VANCOMYCIN INJ 1,500 MG in SODIUM CHLORIDE 0.9% 500 ML IV SCH ×2 (05:20→20:55)
[2017-11-17] MEDS: KETOROLAC 15 MG/1 ML VIAL IM PRN (05:25)
[2017-11-17 06:49] LABS: Basophils % 0.3 % (0.0-0.8); Eosinophils # 0.3 10*3/uL (0.0-0.87); Eosinophils % 2.3 % (0.00-10.9); Hematocrit 30.5 VOL% (35.7-47.0); Hemoglobin 10.4 GM/DL (12.0-16.0); Immature Granulocytes % 0.6 %; Immature Granulocytes Absolute 0.08 #; Lymphocytes # 1.4 10*3/uL (1.4-4.0); Lymphocytes % 11.3 % (21.3-54.2); Mean Corpuscular HGB Conc 34.1 GM/DL (32-36); Mean Corpuscular Hemoglobin 27 PG (27-34); Mean Platelet Volume 9.3 FL (9.6-12.0); Monocytes # 0.7 10*3/uL (0.11-0.8); Monocytes % 5.7 % (1.7-12.7); Neutrophils # 10.1 10*3/uL (1.4-7.4); Neutrophils % 79.8 % (38.7-73.9); Platelet Count 345 T/CUMM (130-400); Red Blood Count 3.86 MC/CUMM (3.8-5.5); Red Cell Distribution Width 14.7 % (9.3-17.3); White Blood Count 12.7 T/CUMM (4-12)
[2017-11-17 07:15] LABS: Calcium 7.8 MG/DL (8.5-10.1); Magnesium 2.1 MG/DL (1.8-2.4); Osmolality,Calculated 272.5 MOS/KG (273-304); Potassium 3.6 MMOL/L (3.5-5.1)
[2017-11-17] MEDS: PIPERACILLIN/TAZOBACTAM 3,375 MG in SODIUM CHLORIDE 0.9% 100 ML IV SCH ×2 (07:58→17:05)
[2017-11-17] MEDS: LISINOPRIL/HCTZ 20-12.5 MG TABLET PO SCH (09:19)
[2017-11-17] MEDS: BENZONATATE 100 MG CAPSULE PO SCH ×3 (09:19→20:49)
[2017-11-17] MEDS: CETIRIZINE 10 MG TABLET PO SCH (09:19)
[2017-11-17] MEDS: INSULIN LISPRO 100 UNIT/ML SUBCUT SCH ×4 (09:23→22:04)
[2017-11-17] MEDS: IBUPROFEN 600 MG TABLET PO PRN (17:54)
[2017-11-17] MEDS ORDERED: AZTREONAM 2,000 MG in SODIUM CHLORIDE 0.9% 100 ML IV SCH (18:30)
[2017-11-17 20:43] LABS: HIV Antigen/Antibody Result Nonreactive (Nonreactive)
[2017-11-17 20:46] LABS: Hepatitis A Ab IgM Quant 0.14 Index; Hepatitis A Ab IgM Result Negative (Negative); Hepatitis B Core IgM Quant 0.11 Index; Hepatitis B Core IgM Result Negative (Negative); Hepatitis B Surface Ag Quant < 0.10 Index; Hepatitis B Surface Ag Result Negative (Negative); Hepatitis C Virus Ab Quant 0.21 Index; Hepatitis C Virus Ab Result Negative (Negative)
[2017-11-17] MEDS: LEVOFLOXACIN INJ 750 MG in PREMIX 1 EACH IV SCH (23:07)
[2017-11-18] MEDS: ALBUTEROL/IPRATROPIUM 3 ML NEB RESP TX SCH ×4 (00:07→20:14)
[2017-11-18] MEDS: KETOROLAC 15 MG/1 ML VIAL IM PRN ×2 (01:42→15:06)
[2017-11-18] MEDS: PIPERACILLIN/TAZOBACTAM 3,375 MG in SODIUM CHLORIDE 0.9% 100 ML IV SCH ×3 (01:45→17:50)
[2017-11-18] MEDS: ONDANSETRON 4 MG/2 ML VIAL IV PRN ×4 (02:01→21:55)
[2017-11-18] MEDS: IBUPROFEN 600 MG TABLET PO PRN ×2 (04:22→12:44)
[2017-11-18] MEDS: VANCOMYCIN INJ 1,500 MG in SODIUM CHLORIDE 0.9% 500 ML IV SCH ×3 (05:28→23:25)
[2017-11-18 06:20] LABS: Basophils % 0.3 % (0.0-0.8); Eosinophils # 0.3 10*3/uL (0.0-0.87); Hematocrit 30.5 VOL% (35.7-47.0); Immature Granulocytes % 0.9 %; Immature Granulocytes Absolute 0.09 #; Lymphocytes # 1.9 10*3/uL (1.4-4.0); Mean Corpuscular HGB Conc 32.8 GM/DL (32-36); Mean Corpuscular Hemoglobin 26 PG (27-34); Mean Corpuscular Volume 80.3 FL (87-102); Mean Platelet Volume 8.8 FL (9.6-12.0); Monocytes % 9.1 % (1.7-12.7); Neutrophils # 7.2 10*3/uL (1.4-7.4); Neutrophils % 68.7 % (38.7-73.9); Platelet Count 355 T/CUMM (130-400); Red Cell Distribution Width 14.7 % (9.3-17.3); White Blood Count 10.5 T/CUMM (4-12)
[2017-11-18 06:42] LABS: Calcium 7.8 MG/DL (8.5-10.1); Osmolality,Calculated 271.5 MOS/KG (273-304); Potassium 3.7 MMOL/L (3.5-5.1)
[2017-11-18 06:49] LABS: Eosinophils 2 % (0-10); Hypochromasia 1+; Lymphocytes 13 % (20-55); Segmented Neutrophils 74 % (50-85); Total Cells Counted 100
[2017-11-18 06:50] LABS: Microcytosis Slight; Ovalocytes Slight; Platelet Estimate Normal; Target Cells Slight
[2017-11-18] MEDS: INSULIN LISPRO 100 UNIT/ML SUBCUT SCH ×4 (08:37→21:55)
[2017-11-18] MEDS: CETIRIZINE 10 MG TABLET PO SCH (08:41)
[2017-11-18] MEDS: LISINOPRIL/HCTZ 20-12.5 MG TABLET PO SCH (08:42)
[2017-11-18] MEDS: BENZONATATE 100 MG CAPSULE PO SCH ×3 (08:43→21:55)
[2017-11-18] MEDS: LEVOFLOXACIN INJ 750 MG in PREMIX 1 EACH IV SCH (21:55)
[2017-11-19] MEDS: ALBUTEROL/IPRATROPIUM 3 ML NEB RESP TX SCH ×4 (00:19→19:20)
[2017-11-19] MEDS: PIPERACILLIN/TAZOBACTAM 3,375 MG in SODIUM CHLORIDE 0.9% 100 ML IV SCH ×3 (02:20→16:36)
[2017-11-19 05:27] LABS: Basophils % 0.3 % (0.0-0.8); Eosinophils # 0.3 10*3/uL (0.0-0.87); Eosinophils % 3.5 % (0.00-10.9); Hematocrit 30.1 VOL% (35.7-47.0); Immature Granulocytes Absolute 0.09 #; Lymphocytes # 2.6 10*3/uL (1.4-4.0); Lymphocytes % 29.5 % (21.3-54.2); Mean Corpuscular HGB Conc 33.2 GM/DL (32-36); Mean Corpuscular Hemoglobin 26 PG (27-34); Mean Corpuscular Volume 79.2 FL (87-102); Mean Platelet Volume 8.6 FL (9.6-12.0); Monocytes # 1.1 10*3/uL (0.11-0.8); Monocytes % 12.3 % (1.7-12.7); Neutrophils # 4.7 10*3/uL (1.4-7.4); Neutrophils % 53.4 % (38.7-73.9); Platelet Count 384 T/CUMM (130-400); Red Cell Distribution Width 14.8 % (9.3-17.3); White Blood Count 8.8 T/CUMM (4-12)
[2017-11-19 05:50] LABS: Band Neutrophils 1 % (0-10); Eosinophils 6 % (0-10); Giant Platelets Few; Hypochromasia 1+; Lymphocytes 30 % (20-55); Microcytosis Slight; Ovalocytes Slight; Platelet Estimate Adequate; Segmented Neutrophils 51 % (50-85); Total Cells Counted 100
[2017-11-19 05:52] LABS: Calcium 8.1 MG/DL (8.5-10.1); Osmolality,Calculated 277.3 MOS/KG (273-304); Potassium 3.8 MMOL/L (3.5-5.1)
[2017-11-19] MEDS: VANCOMYCIN INJ 1,500 MG in SODIUM CHLORIDE 0.9% 500 ML IV SCH ×2 (06:21→13:26)
[2017-11-19] MEDS: INSULIN LISPRO 100 UNIT/ML SUBCUT SCH ×4 (08:32→22:16)
[2017-11-19] MEDS: ONDANSETRON 4 MG/2 ML VIAL IV PRN ×2 (09:00→13:26)
[2017-11-19] MEDS: CETIRIZINE 10 MG TABLET PO SCH (09:00)
[2017-11-19] MEDS: BENZONATATE 100 MG CAPSULE PO SCH ×3 (09:00→22:16)
[2017-11-19] MEDS: LISINOPRIL/HCTZ 20-12.5 MG TABLET PO SCH (09:01)
[2017-11-19] MEDS: BUDESONIDE/FORMOTEROL 160-4.5 INHALER 6 GM INH SCH (22:16)
[2017-11-19] MEDS: LEVOFLOXACIN INJ 750 MG in PREMIX 1 EACH IV SCH (23:11)
[2017-11-20] MEDS: VANCOMYCIN INJ 1,500 MG in SODIUM CHLORIDE 0.9% 500 ML IV SCH ×2 (00:57→08:54)
[2017-11-20] MEDS: ALBUTEROL/IPRATROPIUM 3 ML NEB RESP TX SCH ×4 (01:25→20:45)
[2017-11-20] MEDS: ONDANSETRON 4 MG/2 ML VIAL IV PRN (03:09)
[2017-11-20] MEDS: PIPERACILLIN/TAZOBACTAM 3,375 MG in SODIUM CHLORIDE 0.9% 100 ML IV SCH (03:41)
[2017-11-20 06:29] LABS: Basophils % 0.4 % (0.0-0.8); Eosinophils # 0.4 10*3/uL (0.0-0.87); Eosinophils % 4.2 % (0.00-10.9); Hemoglobin 10.2 GM/DL (12.0-16.0); Immature Granulocytes % 0.9 %; Immature Granulocytes Absolute 0.09 #; Lymphocytes # 3.6 10*3/uL (1.4-4.0); Lymphocytes % 34.6 % (21.3-54.2); Mean Corpuscular HGB Conc 31.9 GM/DL (32-36); Mean Corpuscular Hemoglobin 26 PG (27-34); Mean Corpuscular Volume 81.4 FL (87-102); Mean Platelet Volume 8.4 FL (9.6-12.0); Monocytes % 9.6 % (1.7-12.7); Neutrophils # 5.2 10*3/uL (1.4-7.4); Neutrophils % 50.3 % (38.7-73.9); Platelet Count 420 T/CUMM (130-400); Red Blood Count 3.93 MC/CUMM (3.8-5.5); White Blood Count 10.3 T/CUMM (4-12)
[2017-11-20 06:56] LABS: Giant Platelets Few; Hypochromasia 1+; Platelet Estimate Adequate
[2017-11-20 06:57] LABS: Microcytosis Slight; Ovalocytes Slight
[2017-11-20 07:03] LABS: Calcium 8.1 MG/DL (8.5-10.1); Osmolality,Calculated 276.3 MOS/KG (273-304); Potassium 3.7 MMOL/L (3.5-5.1)
[2017-11-20] MEDS: BUDESONIDE/FORMOTEROL 160-4.5 INHALER 6 GM INH SCH ×2 (08:55→21:47)
[2017-11-20] MEDS: BENZONATATE 100 MG CAPSULE PO SCH ×3 (08:55→21:44)
[2017-11-20] MEDS: CETIRIZINE 10 MG TABLET PO SCH (08:55)
[2017-11-20] MEDS: LISINOPRIL/HCTZ 20-12.5 MG TABLET PO SCH (08:55)
[2017-11-20] MEDS: INSULIN LISPRO 100 UNIT/ML SUBCUT SCH ×4 (08:59→22:07)
[2017-11-20] MEDS: CEFEPIME 2,000 MG in SYRINGE 1 EACH IV SCH ×2 (10:40→16:41)
[2017-11-20] MEDS: LEVOFLOXACIN INJ 750 MG in PREMIX 1 EACH IV SCH (21:48)
[2017-11-21] MEDS: ALBUTEROL/IPRATROPIUM 3 ML NEB RESP TX SCH ×4 (02:43→19:55)
[2017-11-21 05:49] LABS: Basophils % 0.3 % (0.0-0.8); Eosinophils # 0.4 10*3/uL (0.0-0.87); Eosinophils % 3.5 % (0.00-10.9); Hematocrit 29.7 VOL% (35.7-47.0); Immature Granulocytes % 0.8 %; Immature Granulocytes Absolute 0.09 #; Lymphocytes # 3.4 10*3/uL (1.4-4.0); Lymphocytes % 30.7 % (21.3-54.2); Mean Corpuscular HGB Conc 33.7 GM/DL (32-36); Mean Corpuscular Hemoglobin 27 PG (27-34); Mean Corpuscular Volume 79.2 FL (87-102); Mean Platelet Volume 8.7 FL (9.6-12.0); Monocytes # 0.8 10*3/uL (0.11-0.8); Monocytes % 7.3 % (1.7-12.7); Neutrophils # 6.4 10*3/uL (1.4-7.4); Neutrophils % 57.4 % (38.7-73.9); Platelet Count 426 T/CUMM (130-400); Red Blood Count 3.75 MC/CUMM (3.8-5.5); Red Cell Distribution Width 14.8 % (9.3-17.3); White Blood Count 11.1 T/CUMM (4-12)
[2017-11-21 06:14] LABS: Calcium 8.7 MG/DL (8.5-10.1); Osmolality,Calculated 279.3 MOS/KG (273-304); Potassium 3.9 MMOL/L (3.5-5.1)
[2017-11-21 06:49] LABS: Hypochromasia 1+; Microcytosis 1+
[2017-11-21 06:50] LABS: Target Cells Slight
[2017-11-21] MEDS: INSULIN LISPRO 100 UNIT/ML SUBCUT SCH ×4 (08:46→21:08)
[2017-11-21] MEDS: CLINDAMYCIN INJ 600 MG in PREMIX 1 EACH IV SCH ×3 (08:50→20:42)
[2017-11-21] MEDS: BENZONATATE 100 MG CAPSULE PO SCH ×3 (08:51→20:46)
[2017-11-21] MEDS: CETIRIZINE 10 MG TABLET PO SCH (08:51)
[2017-11-21] MEDS: BUDESONIDE/FORMOTEROL 160-4.5 INHALER 6 GM INH SCH ×2 (08:51→20:44)
[2017-11-21] MEDS: CEFEPIME 2,000 MG in SYRINGE 1 EACH IV SCH ×3 (08:51→16:06)
[2017-11-21] MEDS: LISINOPRIL/HCTZ 20-12.5 MG TABLET PO SCH (08:51)
[2017-11-21] MEDS: ACETAMINOPHEN 325 MG TABLET PO PRN ×4 (08:55→20:44)
[2017-11-21] MEDS ORDERED: cloNIDine 0.1 MG TABLET PO PRN (11:17)
[2017-11-21] MEDS: SODIUM CHLORIDE 0.45% 1,000 ML IV SCH (12:42)
[2017-11-21] MEDS: LEVOFLOXACIN INJ 750 MG in PREMIX 1 EACH IV SCH (21:29)
[2017-11-22] MEDS: ACETAMINOPHEN 325 MG TABLET PO PRN ×3 (00:35→10:32)
[2017-11-22] MEDS: CEFEPIME 2,000 MG in SYRINGE 1 EACH IV SCH ×2 (00:37→08:39)
[2017-11-22] MEDS: ALBUTEROL/IPRATROPIUM 3 ML NEB RESP TX SCH ×2 (00:58→07:13)
[2017-11-22 03:45] LABS: Apearance,Urine CLEAR (Clear); Bilirubin,Urine Negative (Negative); Blood, Urine Negative (Negative); Glucose,Urine (UA) Negative (Negative); Ketones,Urine Negative (Negative); Mucus,Urine Occasional /LPF (Occasional); Nitrite,Urine Negative (Negative); Protein,Urine Negative; RBC,Urine <1 /HPF (0-4); Squamous Epithelial Cell,Urine Occasional /HPF (0-10); Urine Color Straw (Yellow); Urine Specific Gravity 1.005 (1.001-1.035); Urine Urobilinogen < 2.0 EU/DL (0.2-1.0); WBC,Urine 3 /HPF (0-6)
[2017-11-22] MEDS: CLINDAMYCIN INJ 600 MG in PREMIX 1 EACH IV SCH ×2 (03:55→08:39)
[2017-11-22] MEDS: SODIUM CHLORIDE 0.45% 1,000 ML IV SCH (04:09)
[2017-11-22 05:46] LABS: Basophils % 0.2 % (0.0-0.8); Eosinophils # 0.4 10*3/uL (0.0-0.87); Eosinophils % 3.6 % (0.00-10.9); Hematocrit 30.1 VOL% (35.7-47.0); Hemoglobin 9.7 GM/DL (12.0-16.0); Immature Granulocytes % 0.6 %; Immature Granulocytes Absolute 0.06 #; Lymphocytes # 2.7 10*3/uL (1.4-4.0); Lymphocytes % 28.1 % (21.3-54.2); Mean Corpuscular HGB Conc 32.2 GM/DL (32-36); Mean Corpuscular Hemoglobin 26 PG (27-34); Mean Corpuscular Volume 80.7 FL (87-102); Mean Platelet Volume 8.6 FL (9.6-12.0); Monocytes # 0.7 10*3/uL (0.11-0.8); Monocytes % 7.4 % (1.7-12.7); Neutrophils # 5.8 10*3/uL (1.4-7.4); Neutrophils % 60.1 % (38.7-73.9); Platelet Count 417 T/CUMM (130-400); Red Blood Count 3.73 MC/CUMM (3.8-5.5); Red Cell Distribution Width 14.8 % (9.3-17.3); White Blood Count 9.7 T/CUMM (4-12)
[2017-11-22 06:24] LABS: Calcium 8.4 MG/DL (8.5-10.1); Osmolality,Calculated 276.4 MOS/KG (273-304); Potassium 4.2 MMOL/L (3.5-5.1)
[2017-11-22] MEDS: INSULIN LISPRO 100 UNIT/ML SUBCUT SCH ×2 (08:38→12:22)
[2017-11-22] MEDS: BUDESONIDE/FORMOTEROL 160-4.5 INHALER 6 GM INH SCH (08:39)
[2017-11-22] MEDS: BENZONATATE 100 MG CAPSULE PO SCH (08:39)
[2017-11-22] MEDS: CETIRIZINE 10 MG TABLET PO SCH (08:39)
[2017-11-22 12:11] VITALS: BP 136/96
[2017-11-22] MEDS ORDERED: NON-FORMULARY MEDICATION (Metformin Hcl [Metformin Hcl] 500 MG) PO SCH (17:00)
[2017-11-22] MEDS ORDERED: PANTOPRAZOLE 40 MG PO SCH (21:00)
[2017-11-23] MEDS ORDERED: ASCORBIC ACID 250 MG PO SCH (09:00)
== END 2017-11-22 13:03 | disposition home or self-care (01) | DRG 871 ==
LOC: N.ED 16:41 → N.EDINP 18:35 → SUATTDRO 18:35 → N.2E 20:42
PROVIDERS: ADMIT Internal Medicine; ATTEND Hospitalist

== ENCOUNTER 2019-07-23 12:34 | Observation (INO) ==
[2019-07-23] MEDS ORDERED: methylPREDNISolone SOD SUC 40 MG/1 ML VIAL IV STA (13:03)
[2019-07-23] MEDS ORDERED: ALBUTEROL/IPRATROPIUM 3 ML NEB RESP TX STA (13:03)
[2019-07-23 13:10] LABS: Basophils # 0.1 10*3/uL (0.0-0.2); Basophils % 0.6 % (0.0-0.8); Eosinophils # 0.2 10*3/uL (0.0-0.87); Eosinophils % 1.6 % (0.00-10.9); Hematocrit 34.9 VOL% (35.7-47.0); Hemoglobin 11.4 GM/DL (12.0-16.0); Immature Granulocytes % 0.5 %; Immature Granulocytes Absolute 0.06 #; Lymphocytes # 3.3 10*3/uL (1.4-4.0); Lymphocytes % 24.9 % (21.3-54.2); Mean Corpuscular HGB Conc 32.7 GM/DL (32-36); Mean Corpuscular Volume 81.9 FL (87-102); Mean Platelet Volume 9.2 FL (9.6-12.0); Monocytes % 9.4 % (1.7-12.7); Platelet Count 289 T/CUMM (130-400); Red Blood Count 4.26 MC/CUMM (3.8-5.5); Red Cell Distribution Width 14.7 % (9.3-17.3); White Blood Count 13.3 T/CUMM (4-12)
[2019-07-23 13:22] LABS: Osmolality,Calculated 273.5 MOS/KG (273-304)
[2019-07-23] MEDS ORDERED: ALBUTEROL 2.5 MG/3 ML NEB RESP TX STA (14:54)
[2019-07-23] MEDS ORDERED: KETOROLAC 30 MG/1 ML VIAL IV STA (16:39)
[2019-07-23] MEDS ORDERED: BISACODYL 5 MG TABLET PO PRN (17:35)
[2019-07-23] MEDS ORDERED: PANTOPRAZOLE 40 MG TABLET PO PRN (17:35)
[2019-07-23] MEDS ORDERED: GLUCAGON 1 MG VIAL IM PRN (17:35)
[2019-07-23] MEDS ORDERED: ONDANSETRON 4 MG/2 ML VIAL IV PRN (17:35)
[2019-07-23] MEDS ORDERED: ACETAMINOPHEN 325 MG TABLET PO PRN (17:35)
[2019-07-23] MEDS ORDERED: DEXTROSE 50% 25 GM/50 ML VIAL IV PRN (17:35)
[2019-07-23] MEDS ORDERED: PIPERACILLIN/TAZOBACTAM 3,375 MG VIAL IV ONE (18:14)
[2019-07-23] MEDS ORDERED: SODIUM CHLORIDE 0.9% 100 ML IV ONE (18:14)
[2019-07-23] MEDS: PIPERACILLIN/TAZOBACTAM 3,375 MG in SODIUM CHLORIDE 0.9% 100 ML IV SCH (18:20)
[2019-07-23] MEDS: ALBUTEROL/IPRATROPIUM 3 ML NEB RESP TX SCH (19:03)
[2019-07-23] MEDS: ENOXAPARIN 40 MG/0.4 ML SYRINGE SUBCUT SCH (20:35)
[2019-07-23] MEDS: methylPREDNISolone SOD SUC 40 MG/1 ML VIAL IV SCH (20:37)
[2019-07-23] MEDS: INSULIN REGULAR 100 UNIT/ML SUBCUT SCH (22:24)
[2019-07-24] MEDS: ALBUTEROL/IPRATROPIUM 3 ML NEB RESP TX SCH ×4 (00:33→19:38)
[2019-07-24] MEDS: ACETYLCYSTEINE 20% 800 MG/4 ML VIAL RESP TX SCH ×4 (00:55→19:38)
[2019-07-24] MEDS: methylPREDNISolone SOD SUC 40 MG/1 ML VIAL IV SCH ×3 (02:38→21:23)
[2019-07-24] MEDS: PIPERACILLIN/TAZOBACTAM 3,375 MG in SODIUM CHLORIDE 0.9% 100 ML IV SCH ×3 (02:45→17:09)
[2019-07-24 05:29] LABS: Basophils % 0.1 % (0.0-0.8); Hematocrit 35.3 VOL% (35.7-47.0); Hemoglobin 11.4 GM/DL (12.0-16.0); Immature Granulocytes % 0.4 %; Immature Granulocytes Absolute 0.06 #; Lymphocytes # 1.2 10*3/uL (1.4-4.0); Lymphocytes % 8.6 % (21.3-54.2); Mean Corpuscular HGB Conc 32.3 GM/DL (32-36); Mean Corpuscular Volume 81.9 FL (87-102); Mean Platelet Volume 9.2 FL (9.6-12.0); Monocytes % 3.6 % (1.7-12.7); Neutrophils % 87.3 % (38.7-73.9); Platelet Count 312 T/CUMM (130-400); Red Blood Count 4.31 MC/CUMM (3.8-5.5); Red Cell Distribution Width 14.7 % (9.3-17.3); White Blood Count 14.4 T/CUMM (4-12)
[2019-07-24 05:51] LABS: Osmolality,Calculated 281.3 MOS/KG (273-304)
[2019-07-24] MEDS: INSULIN REGULAR 100 UNIT/ML SUBCUT SCH ×4 (08:11→21:30)
[2019-07-24] MEDS: MULTIVITAMIN (CENTRUM) TABLET PO SCH (08:12)
[2019-07-24 08:22] LABS: Risk Ratio 2.2; VLDL CHOLESTEROL 7.8 MG/DL
[2019-07-24] MEDS ORDERED: LISINOPRIL/HCTZ 20-12.5 MG TABLET PO SCH (09:00)
[2019-07-24] MEDS ORDERED: amLODIPine 5 MG TABLET PO SCH (09:00)
[2019-07-24] MEDS: amLODIPine 2.5 MG TABLET PO SCH (09:15)
[2019-07-24] MEDS: VORICONAZOLE INJ 400 MG in SODIUM CHLORIDE 0.9% 100 ML IV SCH ×2 (12:04→23:42)
[2019-07-24 16:08] LABS: Apearance,Urine CLEAR (Clear); Bilirubin,Urine Negative (Negative); Blood, Urine Negative (Negative); Glucose,Urine (UA) 50 mg/dL (Negative); Ketones,Urine 5 mg/dL (Negative); Nitrite,Urine Negative (Negative); Protein,Urine 30 MG/DL; RBC,Urine 5 /HPF (0-4); Squamous Epithelial Cell,Urine Occasional /HPF (0-10); Urine Color Yellow (Yellow); Urine Specific Gravity > 1.060 (1.001-1.035); Urine Urobilinogen < 2.0 EU/DL (0.2-1.0); WBC,Urine <1 /HPF (0-6)
[2019-07-24] MEDS: ENOXAPARIN 40 MG/0.4 ML SYRINGE SUBCUT SCH (21:26)
[2019-07-25] MEDS: PIPERACILLIN/TAZOBACTAM 3,375 MG in SODIUM CHLORIDE 0.9% 100 ML IV SCH ×2 (01:50→13:56)
[2019-07-25] MEDS: ALBUTEROL/IPRATROPIUM 3 ML NEB RESP TX SCH ×2 (02:35→07:34)
[2019-07-25] MEDS: ACETYLCYSTEINE 20% 800 MG/4 ML VIAL RESP TX SCH ×2 (02:35→07:40)
[2019-07-25] MEDS: methylPREDNISolone SOD SUC 40 MG/1 ML VIAL IV SCH ×2 (04:29→10:57)
[2019-07-25] MEDS: INSULIN REGULAR 100 UNIT/ML SUBCUT SCH ×3 (08:57→18:01)
[2019-07-25] MEDS: VORICONAZOLE INJ 400 MG in SODIUM CHLORIDE 0.9% 100 ML IV SCH (08:57)
[2019-07-25] MEDS ORDERED: CETIRIZINE 10 MG TABLET PO SCH (09:00)
[2019-07-25] MEDS: MULTIVITAMIN (CENTRUM) TABLET PO SCH (09:02)
[2019-07-25] MEDS: amLODIPine 2.5 MG TABLET PO SCH (09:02)
[2019-07-25 15:55] VITALS: BP 128/71
[2019-07-28 12:36] LABS: TB2 Ag Minus Result 0 IU/mL
== END 2019-07-25 17:16 | disposition home or self-care (01) ==
LOC: N.ED 12:34 → N.EDINP 12:34 → SUATTDRO 17:35 → N.EDINP 19:13 → N.5E 19:55
PROVIDERS: ADMIT Internal Medicine; ATTEND Internal Medicine Geriatric Medicine

== ENCOUNTER 2019-09-05 13:17 | Observation (INO) ==
[2019-09-05] MEDS ORDERED: ALBUTEROL/IPRATROPIUM 3 ML NEB RESP TX STA (13:25)
[2019-09-05] MEDS ORDERED: ALBUTEROL NEB SOLN 5 MG/ML 20 ML/BOTTLE CONT NEB STA (13:35)
[2019-09-05] MEDS ORDERED: methylPREDNISolone SOD SUC 125 MG/2 ML VIAL IV STA (13:35)
[2019-09-05 16:28] LABS: Basophils # 0.1 10*3/uL (0.0-0.2); Basophils % 0.6 % (0.0-0.8); Eosinophils % 0.1 % (0.00-10.9); Hematocrit 39.2 VOL% (35.7-47.0); Hemoglobin 12.7 GM/DL (12.0-16.0); Immature Granulocytes % 0.3 %; Immature Granulocytes Absolute 0.03 #; Lymphocytes # 2.2 10*3/uL (1.4-4.0); Lymphocytes % 20.2 % (21.3-54.2); Mean Corpuscular HGB Conc 32.4 GM/DL (32-36); Mean Corpuscular Volume 81.2 FL (87-102); Mean Platelet Volume 8.5 FL (9.6-12.0); Monocytes % 2.9 % (1.7-12.7); Neutrophils % 75.9 % (38.7-73.9); Platelet Count 371 T/CUMM (130-400); Red Blood Count 4.83 MC/CUMM (3.8-5.5); Red Cell Distribution Width 15.4 % (9.3-17.3); White Blood Count 10.9 T/CUMM (4-12)
[2019-09-05 16:52] LABS: Calcium 8.9 MG/DL (8.5-10.1); Osmolality,Calculated 281.1 MOS/KG (273-304)
[2019-09-05] MEDS ORDERED: ACETAMINOPHEN 325 MG TABLET PO PRN (17:02)
[2019-09-05] MEDS ORDERED: DEXTROSE 50% 25 GM/50 ML VIAL IV PRN (17:02)
[2019-09-05] MEDS ORDERED: GLUCAGON 1 MG VIAL IM PRN (17:02)
[2019-09-05] MEDS ORDERED: ONDANSETRON 4 MG/2 ML VIAL IV PRN (17:02)
[2019-09-05] MEDS ORDERED: AZITHROMYCIN INJ 500 MG in SODIUM CHLORIDE 0.9% 250 ML IV SCH (17:30)
[2019-09-05] MEDS ORDERED: cefTRIAXone 1,000 MG in SYRINGE 1 EACH IV SCH (17:30)
[2019-09-05] MEDS: methylPREDNISolone SOD SUC 125 MG/2 ML VIAL IV SCH (18:19)
[2019-09-05] MEDS: HEPARIN 5,000 UNIT/1 ML VIAL SUBCUT SCH (18:19)
[2019-09-05] MEDS: ALBUTEROL/IPRATROPIUM 3 ML NEB RESP TX SCH (20:58)
[2019-09-05] MEDS ORDERED: MONTELUKAST 10 MG TABLET PO SCH (21:00)
[2019-09-05] MEDS: BENZONATATE 100 MG CAPSULE PO SCH (22:19)
[2019-09-05] MEDS: DOCUSATE SODIUM 100 MG CAPSULE PO SCH (22:20)
[2019-09-05] MEDS: INSULIN REGULAR 100 UNIT/ML SUBCUT SCH (22:28)
[2019-09-06] MEDS: ALBUTEROL/IPRATROPIUM 3 ML NEB RESP TX SCH ×2 (00:45→07:19)
[2019-09-06] MEDS: methylPREDNISolone SOD SUC 125 MG/2 ML VIAL IV SCH ×2 (01:19→08:39)
[2019-09-06] MEDS: HEPARIN 5,000 UNIT/1 ML VIAL SUBCUT SCH ×2 (01:21→08:39)
[2019-09-06] MEDS ORDERED: POTASSIUM CHLORIDE 20 MEQ TABLET PO PRN (03:35)
[2019-09-06 05:40] LABS: Alanine Aminotransferase 13 U/L (13-56); Albumin 3.5 G/DL (3.4-5.0); Alkaline Phosphatase 70 U/L (45-117); Aspartate Amino Transferase 6 U/L (0-37); Bilirubin,Total < 0.39 MG/DL (0.2-1.0); Blood Urea Nitrogen 8 MG/DL (7-18); Calcium 9.1 MG/DL (8.5-10.1); Estimated Glom Filtration Rate 124 ML/MIN; Glucose 186 MG/DL (74-106); Osmolality,Calculated 288.8 MOS/KG (273-304); Total Protein 7.4 G/DL (6.4-8.3)
[2019-09-06 05:46] LABS: Basophils % 0.2 % (0.0-0.8); Hematocrit 38.2 VOL% (35.7-47.0); Hemoglobin 12.1 GM/DL (12.0-16.0); Immature Granulocytes % 0.4 %; Immature Granulocytes Absolute 0.06 #; Lymphocytes # 1.7 10*3/uL (1.4-4.0); Lymphocytes % 11.7 % (21.3-54.2); Mean Corpuscular HGB Conc 31.7 GM/DL (32-36); Mean Corpuscular Volume 82.3 FL (87-102); Mean Platelet Volume 9.2 FL (9.6-12.0); Monocytes % 1.1 % (1.7-12.7); Neutrophils % 86.6 % (38.7-73.9); Platelet Count 378 T/CUMM (130-400); Red Blood Count 4.64 MC/CUMM (3.8-5.5); Red Cell Distribution Width 15.7 % (9.3-17.3); White Blood Count 14.6 T/CUMM (4-12)
[2019-09-06 07:15] LABS: Apearance,Urine CLEAR (Clear); Bilirubin,Urine Negative (Negative); Blood, Urine Negative (Negative); Glucose,Urine (UA) >=500 mg/dL (Negative); Ketones,Urine 5 mg/dL (Negative); Mucus,Urine Moderate /LPF (Occasional); Nitrite,Urine Negative (Negative); Protein,Urine Negative; RBC,Urine 1 /HPF (0-4); Squamous Epithelial Cell,Urine Occasional /HPF (0-10); Urine Color Yellow (Yellow); Urine Specific Gravity 1.028 (1.001-1.035); Urine Urobilinogen < 2.0 EU/DL (0.2-1.0); WBC,Urine <1 /HPF (0-6)
[2019-09-06 07:45] VITALS: BP 107/60
[2019-09-06] MEDS: BENZONATATE 100 MG CAPSULE PO SCH (08:38)
[2019-09-06] MEDS: INSULIN REGULAR 100 UNIT/ML SUBCUT SCH (08:39)
[2019-09-06] MEDS: DOCUSATE SODIUM 100 MG CAPSULE PO SCH (08:39)
[2019-09-06] MEDS ORDERED: ASCORBIC ACID 500 MG TABLET PO SCH (09:00)
[2019-09-06] MEDS ORDERED: amLODIPine 5 MG TABLET PO SCH (09:00)
[2019-09-06] MEDS ORDERED: PANTOPRAZOLE 40 MG TABLET PO SCH (09:00)
[2019-09-07] MEDS ORDERED: AZITHROMYCIN 250 MG TABLET PO SCH (09:00)
== END 2019-09-06 10:18 | disposition home or self-care (01) ==
LOC: N.EDINP 13:17 → N.ED 13:17 → N.5E 17:19 → N.2W 17:21